=== PATIENT | male | born 1940 | race Caucasian/White ===

== ENCOUNTER → 2017-10-18 08:51 | Outpatient (CLI) | payer MEDICARE, SELFPAY ==
[2017-10-18 12:34] LABS: INR 2.4 (1.0-3.5); Prothrombin Time 22.6 sec (9.3-10.8)
== END ==
PROVIDERS: PCP Family Medicine; Visit Provider Family Medicine
DX: I48.92 Unspecified atrial flutter (principal); Z79.01 Long term (current) use of anticoagulants
CPT/HCPCS: 36415; 85610

== ENCOUNTER 2017-11-17 01:06 | Outpatient (CLI) | payer MEDICARE, SELFPAY ==
[2017-11-17 11:26] LABS: INR 2.5 (1.0-3.5); Prothrombin Time 23.7 sec (9.3-10.8)
== END 2017-11-17 01:26 ==
PROVIDERS: PCP Family Medicine; Visit Provider Family Medicine
DX: Z79.01 Long term (current) use of anticoagulants (principal); I48.91 Unspecified atrial fibrillation
CPT/HCPCS: 36415; 85610

== ENCOUNTER 2017-12-19 01:23 | Outpatient (CLI) | payer MEDICARE, SELFPAY ==
[2017-12-19 11:31] LABS: INR 2.4 (1.0-3.5); Prothrombin Time 22.5 sec (9.3-10.8)
== END 2017-12-19 01:43 ==
PROVIDERS: PCP Family Medicine; Visit Provider Family Medicine
DX: I48.91 Unspecified atrial fibrillation (principal); Z79.01 Long term (current) use of anticoagulants
CPT/HCPCS: 36415; 85610

== ENCOUNTER 2018-01-23 08:52 | Outpatient (CLI) | payer MEDICARE, SELFPAY ==
[2018-01-23 11:59] LABS: INR 2.9 (1.0-3.5); Prothrombin Time 27.2 sec (9.3-10.8)
== END 2018-01-23 09:12 ==
PROVIDERS: PCP Family Medicine; Visit Provider Family Medicine
DX: I48.91 Unspecified atrial fibrillation (principal); Z79.01 Long term (current) use of anticoagulants
CPT/HCPCS: 36415; 85610

== ENCOUNTER 2018-02-19 09:28 | Outpatient (CLI) | payer MEDICARE, SELFPAY ==
[2018-02-19 13:24] LABS: INR 2.9 (1.0-3.5); Prothrombin Time 29.1 sec (9.3-11.0)
== END 2018-02-19 09:48 ==
PROVIDERS: PCP Family Medicine; Visit Provider Family Medicine
DX: I48.91 Unspecified atrial fibrillation (principal); Z79.01 Long term (current) use of anticoagulants
CPT/HCPCS: 36415; 85610

== ENCOUNTER 2018-03-27 08:32 | Outpatient (CLI) | payer MEDICARE, SELFPAY ==
[2018-03-27 11:45] LABS: Prothrombin Time 20.3 sec (9.3-11.0)
== END 2018-03-27 08:52 ==
PROVIDERS: PCP Family Medicine; Visit Provider Family Medicine
DX: I48.91 Unspecified atrial fibrillation (principal); Z79.01 Long term (current) use of anticoagulants
CPT/HCPCS: 36415; 85610

== ENCOUNTER 2018-04-24 01:32 | Outpatient (CLI) | payer MEDICARE, SELFPAY ==
[2018-04-24 12:53] LABS: INR 3.5 (0.9-1.1); Prothrombin Time 35.1 sec (9.3-11.0)
== END 2018-04-24 01:52 ==
PROVIDERS: PCP Family Medicine; Visit Provider Family Medicine
DX: Z79.01 Long term (current) use of anticoagulants (principal); I48.91 Unspecified atrial fibrillation
CPT/HCPCS: 36415; 85610

== ENCOUNTER 2018-04-25 00:54 | Outpatient (CLI) | payer MEDICARE, SELFPAY ==
--- NOTE | 2018-04-25 13:48 | DI.RAD_ITS ---
SYMPTOMS/DIAGNOSIS: RIGHT SHOULDER PAIN, M25.511 RIGHT SHOULDER: Multiple views. There are moderate hypertrophic changes seen at the acromioclavicular joint. The glenohumeral joint appears well maintained. Soft tissue calcifications are seen adjacent to the humeral head, which may reflect calcific tendinitis. No acute fracture or dislocation is identified. IMPRESSION: Degenerative changes of the right shoulder.
== END 2018-04-25 01:14 ==
PROVIDERS: PCP Family Medicine
DX: M25.511 Pain in right shoulder (principal); M19.011 Primary osteoarthritis, right shoulder
CPT/HCPCS: 73030

== ENCOUNTER 2018-05-02 09:33 | Outpatient (CLI) | payer MEDICARE, SELFPAY ==
[2018-05-02 10:25] LABS: INR 3.8 (0.9-1.1); Prothrombin Time 38.2 sec (9.3-11.0)
== END 2018-05-02 09:53 ==
PROVIDERS: PCP Family Medicine; Visit Provider Family Medicine
DX: I48.92 Unspecified atrial flutter (principal); Z79.01 Long term (current) use of anticoagulants
CPT/HCPCS: 36415; 85610

== ENCOUNTER 2018-05-09 02:42 | Outpatient (CLI) | payer MEDICARE, SELFPAY ==
[2018-05-09 12:43] LABS: INR 1.8 (0.9-1.1)
== END 2018-05-09 03:02 ==
PROVIDERS: PCP Family Medicine; Visit Provider Family Medicine
DX: I48.92 Unspecified atrial flutter (principal); Z79.01 Long term (current) use of anticoagulants
CPT/HCPCS: 36415; 85610

== ENCOUNTER 2018-05-15 02:03 | Outpatient (CLI) | payer MEDICARE, SELFPAY ==
[2018-05-15 11:47] LABS: Prothrombin Time 25.7 sec (9.3-11.0)
[2018-05-15 11:50] LABS: INR 2.5 (0.9-1.1)
== END 2018-05-15 02:23 ==
PROVIDERS: PCP Family Medicine; Visit Provider Family Medicine
DX: I48.92 Unspecified atrial flutter (principal); Z79.01 Long term (current) use of anticoagulants
CPT/HCPCS: 36415; 85610

== ENCOUNTER → 2018-05-17 11:13 | Outpatient (BNVA) | payer MEDICARE, SELFPAY | PROVIDERS: PCP Family Medicine; Referring Provider Family Medicine; Visit Provider Orthopaedic Surgery | DX: M25.511 Pain in right shoulder (principal) | CPT/HCPCS: 20610; 99202; 99213; J1040 ==

== ENCOUNTER 2018-05-22 08:06 | Outpatient (CLI) | payer MEDICARE, SELFPAY ==
[2018-05-22 13:27] LABS: INR 2.7 (0.9-1.1); Prothrombin Time 27.7 sec (9.3-11.0)
== END 2018-05-22 08:26 ==
PROVIDERS: PCP Family Medicine; Visit Provider Family Medicine
DX: I48.92 Unspecified atrial flutter (principal); Z79.01 Long term (current) use of anticoagulants
CPT/HCPCS: 36415; 85610

== ENCOUNTER 2018-06-19 01:43 | Outpatient (CLI) | payer MEDICARE, SELFPAY ==
[2018-06-19 11:21] LABS: INR 2.6 (0.9-1.1); Prothrombin Time 26.3 sec (9.3-11.0)
== END 2018-06-19 02:03 ==
PROVIDERS: PCP Family Medicine; Visit Provider Family Medicine
DX: I48.92 Unspecified atrial flutter (principal); Z79.01 Long term (current) use of anticoagulants
CPT/HCPCS: 36415; 85610

== ENCOUNTER 2018-07-24 02:03 | Outpatient (CLI) | payer MEDICARE, SELFPAY ==
[2018-07-24 11:16] LABS: INR 2.3 (0.9-1.1); Prothrombin Time 22.8 sec (9.3-11.0)
== END 2018-07-24 02:23 ==
PROVIDERS: PCP Family Medicine; Visit Provider Family Medicine
DX: I48.92 Unspecified atrial flutter (principal); Z79.01 Long term (current) use of anticoagulants
CPT/HCPCS: 36415; 85610

== ENCOUNTER → 2018-07-27 11:19 | Outpatient (BNVA) | payer MEDICARE, SELFPAY | PROVIDERS: PCP Family Medicine; Visit Provider Urology | DX: N40.1 Benign prostatic hyperplasia with lower urinary tract symptoms (principal); N39.41 Urge incontinence | CPT/HCPCS: 99213 ==

== ENCOUNTER 2018-08-21 02:08 | Outpatient (CLI) | payer MEDICARE, SELFPAY ==
[2018-08-21 12:39] LABS: Prothrombin Time 20.6 sec (9.3-11.0)
== END 2018-08-21 02:28 ==
PROVIDERS: PCP Family Medicine; Visit Provider Family Medicine
DX: I48.91 Unspecified atrial fibrillation (principal); Z79.01 Long term (current) use of anticoagulants
CPT/HCPCS: 36415; 85610

== ENCOUNTER 2018-09-18 01:38 | Outpatient (CLI) | payer MEDICARE, SELFPAY ==
[2018-09-18 12:33] LABS: INR 2.1 (0.9-1.1); Prothrombin Time 20.9 sec (9.3-11.0)
== END 2018-09-18 01:58 ==
PROVIDERS: PCP Family Medicine; Visit Provider Family Medicine
DX: I48.91 Unspecified atrial fibrillation (principal); Z79.01 Long term (current) use of anticoagulants
CPT/HCPCS: 36415; 85610

== ENCOUNTER 2018-10-23 10:04 | Outpatient (CLI) | payer MEDICARE, SELFPAY ==
[2018-10-23 11:14] LABS: Prothrombin Time 20.1 sec (9.3-11.0)
== END 2018-10-23 10:24 ==
PROVIDERS: PCP Family Medicine; Visit Provider Family Medicine
DX: Z79.01 Long term (current) use of anticoagulants (principal)
CPT/HCPCS: 36415; 85610

== ENCOUNTER 2018-11-20 09:51 | Outpatient (CLI) | payer MEDICARE, SELFPAY ==
[2018-11-20 14:12] LABS: INR 2.7 (0.9-1.1); Prothrombin Time 26.4 sec (9.3-11.0)
== END 2018-11-20 10:11 ==
PROVIDERS: PCP Family Medicine; Visit Provider Family Medicine
DX: I48.91 Unspecified atrial fibrillation (principal); Z79.01 Long term (current) use of anticoagulants
CPT/HCPCS: 36415; 85610

== ENCOUNTER 2018-12-25 01:54 | Outpatient (CLI) | payer MEDICARE, SELFPAY ==
[2018-12-25 11:07] LABS: INR 1.7 (0.9-1.1); Prothrombin Time 16.5 sec (9.3-11.0)
== END 2018-12-25 02:14 ==
PROVIDERS: PCP Family Medicine; Visit Provider Family Medicine
DX: I48.91 Unspecified atrial fibrillation (principal); Z79.01 Long term (current) use of anticoagulants
CPT/HCPCS: 36415; 85610

== ENCOUNTER 2019-01-02 01:09 | Outpatient (CLI) | payer MEDICARE, SELFPAY ==
[2019-01-02 13:05] LABS: INR 1.8 (0.9-1.1); Prothrombin Time 17.8 sec (9.3-11.0)
== END 2019-01-02 01:29 ==
PROVIDERS: PCP Family Medicine; Visit Provider Family Medicine
DX: Z79.01 Long term (current) use of anticoagulants (principal)
CPT/HCPCS: 36415; 85610

== ENCOUNTER 2019-01-09 01:32 | Outpatient (CLI) | payer MEDICARE, SELFPAY ==
[2019-01-09 11:59] LABS: INR 2.1 (0.9-1.1); Prothrombin Time 20.7 sec (9.3-11.0)
== END 2019-01-09 01:52 ==
PROVIDERS: PCP Family Medicine; Visit Provider Family Medicine
DX: I48.91 Unspecified atrial fibrillation (principal); Z79.01 Long term (current) use of anticoagulants
CPT/HCPCS: 36415; 85610

== ENCOUNTER 2019-02-12 04:23 | Outpatient (CLI) | payer MEDICARE, SELFPAY ==
[2019-02-12 13:53] LABS: INR 1.9 (0.9-1.1); Prothrombin Time 19.1 sec (9.3-11.0)
== END 2019-02-12 04:43 ==
PROVIDERS: PCP Family Medicine; Visit Provider Family Medicine
DX: R79.1 Abnormal coagulation profile (principal); Z79.01 Long term (current) use of anticoagulants
CPT/HCPCS: 36415; 85610

== ENCOUNTER 2019-02-21 08:58 | Outpatient (CLI) | payer MEDICARE, SELFPAY ==
[2019-02-21 13:33] LABS: INR 2.3 (0.9-1.1); Prothrombin Time 22.2 sec (9.3-11.0)
== END 2019-02-21 09:18 ==
LOC: LBO 09:08 → LOS 10:32
PROVIDERS: PCP Family Medicine; Visit Provider Family Medicine
DX: I48.91 Unspecified atrial fibrillation (principal); Z79.01 Long term (current) use of anticoagulants
CPT/HCPCS: 36415; 85610

== ENCOUNTER 2019-02-27 09:24 | Outpatient (CLI) | payer MEDICARE, SELFPAY ==
[2019-02-27 10:44] LABS: INR 2.2 (0.9-1.1); Prothrombin Time 21.3 sec (9.3-11.0)
== END 2019-02-27 09:44 ==
PROVIDERS: PCP Family Medicine; Visit Provider Family Medicine
DX: I48.91 Unspecified atrial fibrillation (principal); Z79.01 Long term (current) use of anticoagulants
CPT/HCPCS: 36415; 85610

== ENCOUNTER 2019-03-13 02:13 | Outpatient (CLI) | payer MEDICARE, SELFPAY ==
[2019-03-13 11:53] LABS: INR 2.1 (0.9-1.1); Prothrombin Time 20.6 sec (9.3-11.0)
== END 2019-03-13 02:33 ==
PROVIDERS: PCP Family Medicine
DX: I48.91 Unspecified atrial fibrillation (principal); Z79.01 Long term (current) use of anticoagulants
CPT/HCPCS: 36415; 85610

== ENCOUNTER 2019-04-23 03:55 | Outpatient (CLI) | payer MEDICARE, SELFPAY ==
[2019-04-23 12:26] LABS: Prothrombin Time 20.1 sec (9.3-11.0)
== END 2019-04-23 04:15 ==
PROVIDERS: PCP Family Medicine; Visit Provider Family Medicine
DX: I48.91 Unspecified atrial fibrillation (principal); Z79.01 Long term (current) use of anticoagulants
CPT/HCPCS: 36415; 85610

== ENCOUNTER → 2019-07-26 16:10 | Outpatient (BNVA) | payer MEDICARE, SELFPAY | PROVIDERS: PCP Family Medicine; Referring Provider Family Medicine; Visit Provider Urology | DX: N40.1 Benign prostatic hyperplasia with lower urinary tract symptoms (principal); N39.41 Urge incontinence | CPT/HCPCS: 99213; 99442 ==

== ENCOUNTER 2019-07-30 04:13 | Outpatient (CLI) | payer MEDICARE, SELFPAY ==
[2019-07-30 12:02] LABS: INR 2.2 (0.9-1.1)
== END 2019-07-30 04:33 ==
PROVIDERS: PCP Family Medicine
DX: I48.91 Unspecified atrial fibrillation (principal); Z79.01 Long term (current) use of anticoagulants
CPT/HCPCS: 36415; 85610

== ENCOUNTER 2019-08-14 16:25 | Emergency (ER) | payer MEDICARE, SELFPAY ==
[2019-08-14 16:35] VITALS: BP 129/97; PULSE 76; RESP 18; TEMP 37; O2SAT 96
[2019-08-14 17:23] LABS: Bilirubin Large (Negative); Blood Large (Negative); Clarity Cloudy (Clear); Glucose 100 mg/dL (Negative); Ketones 15 mg/dL (Negative); Leukocyte Esterase Large (Negative); Nitrite Negative (Negative); Specific Gravity 1.015 (1.005-1.025)
[2019-08-14 17:34] LABS: C & S Indicated? Yes; RBC >50 HPF (0-2)
[2019-08-14 17:45] LABS: Prothrombin Time 19.7 sec (9.3-11.0)
[2019-08-14 17:47] LABS: Abs Immature Grans 0.03 k/cumm (0.0-0.09); Absolute Basophil Count 0.02 k/cumm (0.0-0.2); Absolute Eosinophil Count 0.06 k/cumm (0.0-0.7); Absolute Lymphocyte Count 1.48 k/cumm (1.2-3.4); Absolute Monocyte Count 0.91 k/cumm (0.11-0.7); Absolute Neutrophil Count 5.26 k/cumm (1.2-6.7); Basophils % 0.3; Eosinophils % 0.8; HCT 38.1 % (40.0-50.0); HGB 12.7 g/dL (13.5-17.5); Immature Grans % 0.4 %; Lymphocytes % 19.1; Mean Corp. HGB Concentration 33.3 g/dL (32.0-36.0); Mean Corpuscular Hemoglobin 29.7 pg (27.0-33.0); Mean Corpuscular Volume 89.2 fL (80-95); Mean Platelet Volume 8.9 fL (8.0-11.0); Monocytes % 11.7; Neutrophils % 67.7; Platelet Count 275 x1000/uL (130-400); RBC 4.27 m/cumm (4.50-6.00); RBC Distribution Width 12.7 % (11.8-14.1); White Blood Cell Count 7.76 k/cumm (4.4-10.8)
[2019-08-14 18:08] LABS: ALT 19 U/L (16-63); AST 17 U/L (15-37); Albumin 3.3 g/dL (3.4-5.0); Alkaline Phosphatase 108 U/L (46-116); Anion Gap 7.9 mmol/L (3-11); BUN 17 mg/dL (7-18); Bilirubin, Total 0.2 mg/dL (0.2-1.0); CO2 27.1 mmol/L (21.0-32.0); Calcium 9.1 mg/dL (8.5-10.1); Chloride 104 mmol/L (98-107); Estimated GFR 53.67 (mL/min/1.73m2); Glucose 93 mg/dL (74-106); Potassium 3.9 mmol/L (3.5-5.1); Sodium 139 mmol/L (136-145); Total Protein 7.4 g/dL (6.4-8.2)
--- NOTE | 2019-08-14 18:47 | W.ED.GENAD ---
Discharge Plan Disposition Patient Disposition: HOME Condition: Stable Discharge Details Chief Complaint: Urinary Clinical Impression: Hematuria Primary Care Provider: Sole Carter ED Provider: Otoniel Villgeas Home Meds and New Rx's Prescriptions: Continued Myrbetriq 50 mg tablet extended release 24 hr 50 mg PO DAILY Qty: 90 RF: 4 tamsulosin 0.4 mg capsule 0.4 mg PO HS Qty: 90 RF: 4 warfarin [Coumadin] 5 mg tablet 5 mg PO DAILY Qty: 90 RF: 2 diltiazem HCl 360 mg capsule,extended release 24hr 360 mg PO DAILY Qty: 90 RF: 4 lisinopril 2.5 mg tablet 5 mg PO DAILY Qty: 90 RF: 3 bisoprolol fumarate 5 mg tablet 5 mg PO DAILY Qty: 90 RF: 4 Discharge Instructions Instructions: Hematuria (ED) Additional Instructions: At this time your INR is 2.0. You have no fever, no elevated white count, no obvious signs of infection in your urine. Culture is pending. I will send this note to Dr. Carbone and I have placed you on his call list to help expedite outpatient care. I would like you to contact his office tomorrow for prompt outpatient reevaluation. Please watch for new or worsening symptoms and return to the ER for any concerns Referrals: Fei Carbone MD [ [facility] STAFF PHYSICIAN] - Medical Decision Making 78-year-old gentleman who is anticoagulated presents with asymptomatic hematuria. He appears well, nontoxic. Blood pressure is 129/97, pulse 76. Differential includes but not excluded to hemorrhagic cystitis, elevated INR, bladder mass, etc. Given his presentation, lack of discomfort, flank pain, reproducible pain, pulsatile mass, I do believe that both AAA dissection, renal stone, far less likely on the differential. Will obtain CBC, CMP, urinalysis, INR. Patient would like to know how long this is going to take, does not want to be here very long. I explained to him that this is a fairly busy day in the emergency department and we will go as quickly as we can do safely as we can Work-up reveals a white blood cell count of 7.76 hemoglobin 12.7 hematocrit 38.1 platelet count 275. INR 2.0. Electrolytes unremarkable. Urinalysis reveals large blood, negative nitrate. Large leuk esterase, greater than 50 red cells. The red cells obscured the field, white blood cells not applicable. Because of this culture is indicated. Discussed the case with Dr. Kumari. Given the patient has no dysuria, frequency, elevated white count, fever, etc., see no acute reason to initiate antibiotic therapy. His INR is appropriate so he will continue taking his anticoagulation as directed. I have placed him on the list for expedited outpatient care with Dr. Carbone, he will contact their office tomorrow. Discussed with the patient that culture is pending and if he does grow bacteria he will need to be placed on antibiotics for a hemorrhagic cystitis. He was encouraged to return to the ER for new or worsening symptoms, otherwise contact the office of Dr. Carbone tomorrow for prompt outpatient reevaluation. He was quite comfortable with this plan and had no additional questions or concerns. Medical Records Medical records reviewed: Yes I reviewed the patient's medical records. Lab Data Lab results reviewed: Yes I reviewed the patient's lab results. Labs: 08/14/19 17:00 Urine - Reflex from Ua Urine Culture - Pending Laboratory Tests Range/Units 08/14/19 08/14/19 08/14/19 16:46 17:00 17:30 WBC (4.4-10.8) k/cumm RBC (4.50-6.00) m/cumm Hgb (13.5-17.5) g/dL Hct (40.0-50.0) % MCV (80-95) fL MCH (27.0-33.0) pg MCHC (32.0-36.0) g/dL RDW (11.8-14.1) % Plt Count (130-400) x1000/uL MPV (8.0-11.0) fL Immature Gran % % Neutrophils % Lymphocytes % Monocytes % Eosinophils % Basophils % Absolute Neutrophils (1.2-6.7) k/cumm Absolute Lymphocytes (1.2-3.4) k/cumm Absolute Monocytes (0.11-0.7) k/cumm Absolute Eosinophils (0.0-0.7) k/cumm Absolute Basophils (0.0-0.2) k/cumm PT (9.3-11.0) sec INR (0.9-1.1) Sodium (136-145) mmol/L 139 Potassium (3.5-5.1) mmol/L 3.9 Chloride (98-107) mmol/L 104 Carbon Dioxide (21.0-32.0) mmol/L 27.1 Anion Gap (3-11) mmol/L 7.9 BUN (7-18) mg/dL 17 Creatinine (0.70-1.30) mg/dL 1.30 Estimated GFR/1.73 m2 (mL/min/1.73m2) 53.67 Glucose (74-106) mg/dL 93 Calcium (8.5-10.1) mg/dL 9.1 Total Bilirubin (0.2-1.0) mg/dL 0.2 AST (15-37) U/L 17 ALT (16-63) U/L 19 Alkaline Phosphatase (46-116) U/L 108 Total Protein (6.4-8.2) g/dL 7.4 Albumin (3.4-5.0) g/dL 3.3 L Urine Color Cancelled Red Urine Clarity Cancelled Cloudy Urine pH Cancelled 5.0 Ur Specific [place] Cancelled 1.015 Urine Protein Cancelled >=300 H Urine Ketones Cancelled 15 H Urine Blood Cancelled Large H Urine Nitrite Cancelled Negative Urine Bilirubin Cancelled Large H Urine Urobilinogen Cancelled 4.0 H Ur Leukocyte Esterase Cancelled Large H Urine RBC (0-2) HPF >50 H Urine WBC Not Applicable Ur Epithelial Cells Not Applicable Urine Crystals Not Applicable Urine Bacteria Not Applicable Urine Mucus Not Applicable Ur Culture Indicated? Yes Urine Glucose Cancelled 100 Range/Units 08/14/19 08/14/19 17:30 17:30 WBC (4.4-10.8) k/cumm 7.76 RBC (4.50-6.00) m/cumm 4.27 L Hgb (13.5-17.5) g/dL 12.7 L Hct (40.0-50.0) % 38.1 L MCV (80-95) fL 89.2 MCH (27.0-33.0) pg 29.7 MCHC (32.0-36.0) g/dL 33.3 RDW (11.8-14.1) % 12.7 Plt Count (130-400) x1000/uL 275 MPV (8.0-11.0) fL 8.9 Immature Gran % % 0.4 Neutrophils % 67.7 Lymphocytes % 19.1 Monocytes % 11.7 Eosinophils % 0.8 Basophils % 0.3 Absolute Neutrophils (1.2-6.7) k/cumm 5.26 Absolute Lymphocytes (1.2-3.4) k/cumm 1.48 Absolute Monocytes (0.11-0.7) k/cumm 0.91 H Absolute Eosinophils (0.0-0.7) k/cumm 0.06 Absolute Basophils (0.0-0.2) k/cumm 0.02 PT (9.3-11.0) sec 19.7 H INR (0.9-1.1) 2.0 H Sodium (136-145) mmol/L Potassium (3.5-5.1) mmol/L Chloride (98-107) mmol/L Carbon Dioxide (21.0-32.0) mmol/L Anion Gap (3-11) mmol/L BUN (7-18) mg/dL Creatinine (0.70-1.30) mg/dL Estimated GFR/1.73 m2 (mL/min/1.73m2) Glucose (74-106) mg/dL Calcium (8.5-10.1) mg/dL Total Bilirubin (0.2-1.0) mg/dL AST (15-37) U/L ALT (16-63) U/L Alkaline Phosphatase (46-116) U/L Total Protein (6.4-8.2) g/dL Albumin (3.4-5.0) g/dL Urine Color Urine Clarity Urine pH Ur Specific [place] Urine Protein Urine Ketones Urine Blood Urine Nitrite Urine Bilirubin Urine Urobilinogen Ur Leukocyte Esterase Urine RBC (0-2) HPF Urine WBC Ur Epithelial Cells Urine Crystals Urine Bacteria Urine Mucus Ur Culture Indicated? Urine Glucose HPI General Mode of arrival: ambulatory. Date/Time Provider Initiated Documentation: 08/14/19 16:59. Limitations to Documentation: no limitations. Information obtained by: patient. HPI Narrative: This is a 78-year-old gentleman with history of atrial flutter, BPH, chronic anticoagulation, emphysema, aortic aneurysm presenting to the ER today for hematuria that he noticed twice today. He denies recent illness or trauma. He denies change of his medications. He denies any fever, chest pain, abdominal pain, back pain with pain in his penis or testicles, nausea or vomiting. Denies bright red blood in his stools or black tarry stools. He denies any urinary frequency or hesitancy. Patient does see Dr. Carbone, urology, for ongoing BPH and lower urinary tract symptoms. Patient reports that this is never happened before. At this time he has no additional questions or concerns. Related Data Home Medications Medication Instructions Recorded Confirmed warfarin 5 mg tablet 5 mg PO DAILY #90 tab-cap 12/17/18 08/14/19 diltiazem HCl 360 mg 360 mg PO DAILY #90 tab-cap 02/27/19 08/14/19 capsule,extended release 24 hr lisinopril 2.5 mg tablet 5 mg PO DAILY #90 tab-cap 05/06/19 08/14/19 bisoprolol fumarate 5 mg tablet 5 mg PO DAILY #90 tab 07/02/19 08/14/19 mirabegron 50 mg tablet,extended 50 mg PO DAILY #90 tab-cap 07/26/19 08/14/19 release 24 hr tamsulosin 0.4 mg capsule 0.4 mg PO HS #90 cap 07/26/19 08/14/19 Previous Rx's Medication Instructions Recorded warfarin 5 mg tablet 5 mg PO DAILY #90 tab-cap 12/17/18 diltiazem HCl 360 mg 360 mg PO DAILY #90 tab-cap 02/27/19 capsule,extended release 24 hr lisinopril 2.5 mg tablet 5 mg PO DAILY #90 tab-cap 05/06/19 bisoprolol fumarate 5 mg tablet 5 mg PO DAILY #90 tab 07/02/19 mirabegron 50 mg tablet,extended 50 mg PO DAILY #90 tab-cap 07/26/19 release 24 hr tamsulosin 0.4 mg capsule 0.4 mg PO HS #90 cap 07/26/19 Allergies Allergy/AdvReac Type Severity Reaction Status Date / Time metoprolol AdvReac Mild DIARRHEA Verified 08/14/19 16:41 General Stated Complaint: Urinary KELLI: 3 Review of Systems Constitutional Constitutional: Denies fever(s) and Denies weakness Cardiovascular Cardiovascular: Denies chest pain and Denies dyspnea Respiratory Respiratory: Denies cough and Denies dyspnea Gastrointestinal Gastrointestinal: Denies abdominal pain, Denies melena, Denies hematochezia, Denies nausea and Denies vomiting Genitourinary Genitourinary: Denies genital pain, Denies penile discharge and Denies testicular pain Musculoskeletal Musculoskeletal: Denies back pain and Denies tingling Integumentary/Breasts Skin/Breast: Denies rash Neurologic Neurologic: Denies tingling and Denies weakness Hematologic/Lymphatic Hematologic/Lymphatic: Reports easy bleeding and Reports easy bruising [facility] Medical History Aortic aneurysm, abdominal (Chronic) Atrial flutter with rapid ventricular response (Chronic) Benign non-nodular prostatic hyperplasia with lower urinary tract symptoms (Acute 12/10/14) Elevated PSA (Acute 07/19/16) Emphysema of lung (Chronic) POLST (Physician Orders for Life-Sustaining Treatment) (Acute) SVT (supraventricular tachycardia) (Acute 02/27/15) Holter -2014: multiple SVT/long duration/intol. 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 Sister No problems noted. Brother Accidental poisoning by carbon monoxide Social History Smoking/Tobacco Use Status: Current-Occasional Tobacco Type: cigarettes Alcohol Intake: never Drug use: Never Substance use type: does not use Current gender identity: male Do you feel safe at home: Yes Do you feel safe in your relationship?: Yes Exam Const General: cooperative, healthy appearing, comfortable and no acute distress Orientation: alert, awake and oriented x3 HENMT Head: normal to inspection, normocephalic and atraumatic Mouth: moist mucous membranes Eyes Conjunctivae: conjunctivae normal Sclera: sclerae normal Neck Neck: normal visual inspection, trachea midline and supple Resp Effort & Inspection: normal respiratory effort and able to speak in complete sentences Auscultation: clear to auscultation bilaterally Cardio Rate: regular rate Rhythm: regular rhythm GI Inspection: normal to inspection Palpation: soft, not firm, no masses, no pulsatile masses, not rigid and nontender Auscultation: normal bowel sounds Male General Exam: Yes normal external exam Penis: normal penis Meatus: meatus normal Scrotum: scrotum normal Testes: normal Back/Spine/Pelvis Back: No back tenderness Skin General skin exam: no rashes or lesions noted Neuro General: patient alert, patient awake, moves all extremities and no focal motor deficits Motor: muscle tone normal throughout Sensory Exam: no sensory deficits noted Psych Appearance: grossly normal Mental Status: mental status grossly normal Course Vital Signs Vital signs: Vital Signs Temperature 37 C 08/14/19 16:35 Pulse 76 08/14/19 16:35 Respiratory Rate 18 08/14/19 16:35 Blood Pressure 129/97 H 08/14/19 16:35 Pulse Oximetry 96 08/14/19 16:35 Temperature 37 C 08/14/19 16:35 Temperature Source Temporal Artery Scan 08/14/19 16:35 Pulse 76 08/14/19 16:35 Respiratory Rate 18 08/14/19 16:35 Respiratory Effort 08/14/19 16:40 Blood Pressure 129/97 H 08/14/19 16:35 Blood Pressure Position Sitting 08/14/19 16:35 Pulse Oximetry 96 08/14/19 16:35 Oxygen Delivery Method Room Air 08/14/19 16:35 Oxygen Flow Rate 0 08/14/19 16:35 Pain Level 0 08/14/19 16:35 Lab/Test Results Lab/Test Results: 08/14/19 17:00 Urine - Reflex from Ua Urine Culture - Pending Laboratory Tests Range/Units 08/14/19 08/14/19 08/14/19 16:46 17:00 17:30 WBC (4.4-10.8) k/cumm RBC (4.50-6.00) m/cumm Hgb (13.5-17.5) g/dL Hct (40.0-50.0) % MCV (80-95) fL MCH (27.0-33.0) pg MCHC (32.0-36.0) g/dL RDW (11.8-14.1) % Plt Count (130-400) x1000/uL MPV (8.0-11.0) fL Immature Gran % % Neutrophils % Lymphocytes % Monocytes % Eosinophils % Basophils % Absolute Neutrophils (1.2-6.7) k/cumm Absolute Lymphocytes (1.2-3.4) k/cumm Absolute Monocytes (0.11-0.7) k/cumm Absolute Eosinophils (0.0-0.7) k/cumm Absolute Basophils (0.0-0.2) k/cumm PT (9.3-11.0) sec INR (0.9-1.1) Sodium (136-145) mmol/L 139 Potassium (3.5-5.1) mmol/L 3.9 Chloride (98-107) mmol/L 104 Carbon Dioxide (21.0-32.0) mmol/L 27.1 Anion Gap (3-11) mmol/L 7.9 BUN (7-18) mg/dL 17 Creatinine (0.70-1.30) mg/dL 1.30 Estimated GFR/1.73 m2 (mL/min/1.73m2) 53.67 Glucose (74-106) mg/dL 93 Calcium (8.5-10.1) mg/dL 9.1 Total Bilirubin (0.2-1.0) mg/dL 0.2 AST (15-37) U/L 17 ALT (16-63) U/L 19 Alkaline Phosphatase (46-116) U/L 108 Total Protein (6.4-8.2) g/dL 7.4 Albumin (3.4-5.0) g/dL 3.3 L Urine Color Cancelled Red Urine Clarity Cancelled Cloudy Urine pH Cancelled 5.0 Ur Specific [place] Cancelled 1.015 Urine Protein Cancelled >=300 H Urine Ketones Cancelled 15 H Urine Blood Cancelled Large H Urine Nitrite Cancelled Negative Urine Bilirubin Cancelled Large H Urine Urobilinogen Cancelled 4.0 H Ur Leukocyte Esterase Cancelled Large H Urine RBC (0-2) HPF >50 H Urine WBC Not Applicable Ur Epithelial Cells Not Applicable Urine Crystals Not Applicable Urine Bacteria Not Applicable Urine Mucus Not Applicable Ur Culture Indicated? Yes Urine Glucose Cancelled 100 Range/Units 08/14/19 08/14/19 17:30 17:30 WBC (4.4-10.8) k/cumm 7.76 RBC (4.50-6.00) m/cumm 4.27 L Hgb (13.5-17.5) g/dL 12.7 L Hct (40.0-50.0) % 38.1 L MCV (80-95) fL 89.2 MCH (27.0-33.0) pg 29.7 MCHC (32.0-36.0) g/dL 33.3 RDW (11.8-14.1) % 12.7 Plt Count (130-400) x1000/uL 275 MPV (8.0-11.0) fL 8.9 Immature Gran % % 0.4 Neutrophils % 67.7 Lymphocytes % 19.1 Monocytes % 11.7 Eosinophils % 0.8 Basophils % 0.3 Absolute Neutrophils (1.2-6.7) k/cumm 5.26 Absolute Lymphocytes (1.2-3.4) k/cumm 1.48 Absolute Monocytes (0.11-0.7) k/cumm 0.91 H Absolute Eosinophils (0.0-0.7) k/cumm 0.06 Absolute Basophils (0.0-0.2) k/cumm 0.02 PT (9.3-11.0) sec 19.7 H INR (0.9-1.1) 2.0 H Sodium (136-145) mmol/L Potassium (3.5-5.1) mmol/L Chloride (98-107) mmol/L Carbon Dioxide (21.0-32.0) mmol/L Anion Gap (3-11) mmol/L BUN (7-18) mg/dL Creatinine (0.70-1.30) mg/dL Estimated GFR/1.73 m2 (mL/min/1.73m2) Glucose (74-106) mg/dL Calcium (8.5-10.1) mg/dL Total Bilirubin (0.2-1.0) mg/dL AST (15-37) U/L ALT (16-63) U/L Alkaline Phosphatase (46-116) U/L Total Protein (6.4-8.2) g/dL Albumin (3.4-5.0) g/dL Urine Color Urine Clarity Urine pH Ur Specific [place] Urine Protein Urine Ketones Urine Blood Urine Nitrite Urine Bilirubin Urine Urobilinogen Ur Leukocyte Esterase Urine RBC (0-2) HPF Urine WBC Ur Epithelial Cells Urine Crystals Urine Bacteria Urine Mucus Ur Culture Indicated? Urine Glucose
[2019-08-14 22:27] VITALS: TEMP 36.4
--- NOTE | 2019-08-15 07:11 | NUR.NOTE ---
[facility]erral [facility], Dr. Carbone.Nursing Note:
== END 2019-08-14 19:20 | disposition home or self-care (01) ==
PROVIDERS: Emergency Provider Physician Assistant; PCP Family Medicine
DX: R31.9 Hematuria, unspecified (principal); N40.1 Benign prostatic hyperplasia with lower urinary tract symptoms; R39.15 Urgency of urination; Z79.01 Long term (current) use of anticoagulants; I48.92 Unspecified atrial flutter
CPT/HCPCS: 36415; 80053; 99283; 81003; 81015; 85025; 85610; 87086

== ENCOUNTER 2019-08-15 09:17 | Outpatient (CLI) | payer MEDICARE, SELFPAY ==
--- NOTE | 2019-08-15 15:45 | DI.CT_ITS ---
EXAM: CT ABDOMEN PELVIS WO/W CLINICAL HISTORY: gross hematuria, R31.9 TECHNIQUE: COMPARISON: No exams were available for comparison FINDINGS: CT examination of the abdomen and pelvis was performed utilizing CT urogram protocol with intravenous infusion 100 cc of Omnipaque 350. Images obtained through the lung bases show an irregular somewhat spiculated appearing region of scar ring or nodularity of the right lung base, this was not present on prior CT angiogram of the chest of September 2016. This measures about 15-20 millimeters in diameter. Although the findings may represen t scarring, the possibility of malignancy would have to be raised. Correlation with chest CT request ed as this is an incompletely visualized finding. There are numerous low-attenuation hepatic lesions consistent with cysts. These appear to have been present on prior study. There is also a peripheral nodular enhancing lesion of the left hepatic lobe with appearance consistent with hepatic hemangioma. This measures about 2.5 cm in diameter. The spleen is unremarkable in appearance. Pancreas appears normal. Gallbladder is contracted, gallb ladder and bile ducts unremarkable by CT criteria. There is marked wall calcification of all the abdominal arterial circulation. No aortic aneurysm. N o obstruction of major visceral vessels although there could be mild stenosis of origins of celiac tr unk and left renal artery. The adrenals are unremarkable in appearance. Appendix is normal. No evidence of diverticulitis or bowel obstruction. No abdominal or pelvic adenopathy. No significant abdominal wall hernia. There is left lower pole renal cyst measuring about 15 millimeters in diameter. There is a [address] nonobstructing left renal calculus. Vascular calcification is seen involving the right kidney. There is no evidence of hydronephrosis. No evidence of ureterolithiasis. Visualized opacified colle cting systems appear normal. There is a bladder mass measuring up to about 6 cm in diameter, highly suggestive bladder neoplasm. Prostate is enlarged and partially calcified. No pelvic adenopathy. IMPRESSION: Large urinary bladder mass, highly suggestive of transitional cell carcinoma. Nonobstructing left re nal calculus. New spiculated right basilar lung lesion, scarring versus neoplasm, chest CT recommended for further evaluation.
[2019-08-15] MEDS: Omnipaque 350 MG/ML 100 ML BTL IJ (16:30)
[2019-08-16 11:32] LABS: PSA, Screening 7.7 ng/mL (0.0-6.5)
== END 2019-08-15 09:37 ==
PROVIDERS: PCP Family Medicine; Visit Provider Nurse Practitioner Gerontology
DX: R31.9 Hematuria, unspecified (principal); N40.1 Benign prostatic hyperplasia with lower urinary tract symptoms; J98.4 Other disorders of lung; K76.89 Other specified diseases of liver; N20.0 Calculus of kidney; N32.89 Other specified disorders of bladder
CPT/HCPCS: 84153; 99213; 74178; J3490

== ENCOUNTER → 2019-08-15 14:55 | Outpatient (BNVA) | payer MEDICARE, SELFPAY | PROVIDERS: PCP Family Medicine; Referring Provider Family Medicine; Visit Provider Nurse Practitioner Gerontology | DX: N40.1 Benign prostatic hyperplasia with lower urinary tract symptoms (principal); R31.9 Hematuria, unspecified | CPT/HCPCS: 99213 ==

== ENCOUNTER → 2019-08-16 14:34 | Outpatient (BNVA) | payer MEDICARE, SELFPAY | PROVIDERS: PCP Family Medicine; Referring Provider Family Medicine; Visit Provider Urology | DX: R91.8 Other nonspecific abnormal finding of lung field (principal); R31.9 Hematuria, unspecified | CPT/HCPCS: 99213 ==

== ENCOUNTER 2019-08-19 09:28 | Outpatient (CLI) | payer MEDICARE, SELFPAY ==
--- NOTE | 2019-08-19 13:00 | DI.CT_ITS ---
EXAM: CT CHEST W CLINICAL HISTORY: abormal ct abd/pelvis R93.5 TECHNIQUE: Imaging Protocol: Axial computed tomography images with coronal and sagittal reformatted images were created and reviewed CONTRAST MATERIAL: Intravenous: Omnipaque 350 Contrast volume:70 mL. COMPARISON: CT CHEST FOR PULMONARY EMBOLUS from 10/12/[address] ABDOMEN PELVIS WO/W from 08/15/2019 FINDINGS: Tracheobronchial tree: There is a small amount of fluid seen in the dependent portion of the trachea and right mainstem bronchus. No endobronchial mass is seen. Mediastinum and [place]: No dominant adenopathy or fluid collection. Pulmonary parenchyma: Emphysematous changes are seen in the lungs. There is a 0.3 cm noncalcified pu lmonary nodule in the posterior aspect of the right upper lobe. (Series 3, image 214). This was pre sent on the prior examination dated 10/12/2016. There is scarring in the apices bilaterally. There is an irregular density in the posterior aspect of the right lower lobe. This may represent an area of infiltration, scarring or mass. Pleura: No effusion or pneumothorax. Heart: The heart is not dilated. Marked coronary artery calcification is present. There is a small p ericardial effusion. Aorta: Thoracic aorta non-dilated. Atherosclerosis. Lymph nodes: Within normal limits. Bones: Mild degenerative changes are seen in the spine. No aggressive osseous lesions are present. IMPRESSION: 1. Irregular density/spiculated area in the right lower lobe. This may represent an area of infiltra tion, scarring or mass. PET CT scan may be considered for further evaluation. 2. Stable 0.3 cm noncalcified pulmonary nodule in the right upper lobe. 3. Pulmonary emphysema. 4. Coronary artery calcification and atherosclerosis. 5. Small amount of fluid seen in the dependent portion of the trachea and right mainstem bronchus. T his may represent mild aspiration. RADIATION DOSE DELIVERED: Total DLP DATA REPOSITORY: All CT scans at this facility are submitted to the National Radiology Data Registry (NRDR) Dose Index Registry (DIR) with the [employer] (ACR). RADIATION OPTIMIZATION: All CT scans at this facility use at least one of these dose optimization te chniques: automated exposure control; mA and/or kV adjustment per patient size (includes targeted exa ms where dose is matched to clinical indication); or iterative reconstruction.
[2019-08-19] MEDS: Omnipaque 350 MG/ML 100 ML BTL IV (13:23)
== END 2019-08-19 09:48 ==
PROVIDERS: PCP Family Medicine; Visit Provider Urology
DX: R91.8 Other nonspecific abnormal finding of lung field (principal); R91.1 Solitary pulmonary nodule; J43.8 Other emphysema; J39.8 Other specified diseases of upper respiratory tract; I31.3 Pericardial effusion (noninflammatory); R31.9 Hematuria, unspecified; F17.210 Nicotine dependence, cigarettes, uncomplicated
CPT/HCPCS: 99213; 71260; J3490

== ENCOUNTER 2019-09-06 03:02 | Outpatient (CLI) | payer MEDICARE, SELFPAY ==
[2019-09-06 14:12] LABS: INR 2.1 (0.9-1.1); Prothrombin Time 20.9 sec (9.3-11.0)
== END 2019-09-06 03:22 ==
PROVIDERS: PCP Family Medicine; Visit Provider Family Medicine
DX: N32.89 Other specified disorders of bladder (principal); R31.9 Hematuria, unspecified; Z79.01 Long term (current) use of anticoagulants
CPT/HCPCS: 36415; 81003; 99213; 85610

== ENCOUNTER 2019-11-21 05:39 | Outpatient (CLI) | payer MEDICARE, SELFPAY ==
[2019-11-21 13:56] LABS: INR 2.3 (0.9-1.1); Prothrombin Time 22.4 sec (9.3-11.0)
== END 2019-11-21 05:59 ==
PROVIDERS: PCP Family Medicine; Visit Provider Family Medicine
DX: I48.91 Unspecified atrial fibrillation (principal); Z79.01 Long term (current) use of anticoagulants
CPT/HCPCS: 36415; 85610

== ENCOUNTER 2019-12-25 03:04 | Outpatient (CLI) | payer MEDICARE, SELFPAY ==
[2019-12-25 11:20] LABS: INR 2.4 (0.9-1.1); Prothrombin Time 23.5 sec (9.3-11.0)
[2019-12-25 11:21] LABS: CREATININE 1.24 mg/dL (0.70-1.30); Estimated GFR 56.53 (mL/min/1.73m2)
== END 2019-12-25 03:24 ==
PROVIDERS: PCP Family Medicine; Visit Provider Family Medicine
DX: R93.89 Abnormal findings on diagnostic imaging of other specified body structures (principal); Z79.1 Long term (current) use of non-steroidal anti-inflammatories (NSAID); I48.91 Unspecified atrial fibrillation
CPT/HCPCS: 36415; 82565; 85610

== ENCOUNTER 2020-01-29 03:42 | Outpatient (CLI) | payer MEDICARE, SELFPAY ==
[2020-01-29 10:38] LABS: Prothrombin Time 20.1 sec (9.3-11.0)
== END 2020-01-29 04:02 ==
PROVIDERS: PCP Family Medicine; Visit Provider Family Medicine
DX: I48.91 Unspecified atrial fibrillation (principal); Z79.01 Long term (current) use of anticoagulants
CPT/HCPCS: 36415; 85610

== ENCOUNTER 2020-02-17 01:39 | Outpatient (CLI) | payer MEDICARE, SELFPAY ==
--- NOTE | 2020-02-17 08:30 | DI.CT_ITS ---
EXAM: CT CHEST W CLINICAL HISTORY: density in RLL on CT of 07/2019- heavy smoker-. TECHNIQUE: Multi planar reconstructions were performed. CONTRAST MATERIAL: Omnipaque 350; 70 cc COMPARISON: CT CT CHEST W from 08/19/2019 FINDINGS: CHEST: LUNGS: Again noted are emphysematous changes in both lung scott. There is partially calcified scarr ing in the sub apical regions of both upper lobes which appears unchanged. . The previously describ ed stellate density in the right lower lobe posterior basal segment is no longer seen. This implies that it was most probably infectious. There are no new ominous focal nodules in the right lung. Als o no new significant left lung focal findings. No pleural effusions on either side. No new signific ant findings in the in the mainstem bronchi. There is mucus on the posterior wall of the trachea but not at nor distal to the level of the hari. MEDIASTINUM: There is no hilar nor mediastinal adenopathy. No subcarinal adenopathy.Thyroid gland siz e is normal but there are nodules in both thyroid lobes noted. CARDIAC: Heart size is normal. There is no pericardial effusion.The thoracic aorta is atheroscleroti c and the descending thoracic aorta exhibits ulcerated plaque. No dissection. There is an anatomic variant here in that the left vertebral artery originates as an independent vessel off the aortic arc h instead of typical origin off the left subclavian artery. VISUALIZED UPPER ABDOMEN:No significant adrenal masses . However, there are multiple hypodensities i n the liver, most of which appear to be cysts. In addition, there is the lesion the left hepatic lob e which is unchanged from 08/19/2019 has appearance of a possible subcapsular hemangioma although silva ewhat difficult to assess on this type of study. OSSEOUS: No significant osseous lesions.. IMPRESSION: 1. Compared to the prior CT scan of 08/19/2019 the previously described ominous appearing spiculated density in the right lower lobe has resolved, implying that it was most probably infectious. No new nodules nor pleural effusions nor intrathoracic adenopathy. I note that there is significant amount of mucus on the dependent wall of the trachea. There is no mucus below the level of hari. 2. Partially calcified scarring is noted in the sub apical regions of both upper lobes, the superimpo sed upon severe emphysematous changes throughout both lung scott. 3. Thyroid nodule seen in both lobes. Thyroid gland itself is not enlarged. 4. Incidental liver findings as described above including multiple cysts as well as a prominent lesi on in the left lobe which has appearance of a probable hemangioma and is unchanged from 08/19/2019. If clinically indicated this could be further studied with hemangioma protocol MRI study. 5. Incidentally noted is a small cyst in the inferior pole of the left kidney. Please note that the tire kidneys are not included in the field of view of this chest CT study. RADIATION DOSE DELIVERED: 449.38mGy.cm Total DLP DATA REPOSITORY: All CT scans at this facility are submitted to the National Radiology Data Registry (NRDR) Dose Index Registry (DIR) with the [employer] (ACR). RADIATION OPTIMIZATION: All CT scans at this facility use at least one of these dose optimization te chniques: automated exposure control; mA and/or kV adjustment per patient size (includes targeted exa ms where dose is matched to clinical indication); or iterative reconstruction.
[2020-02-17 12:30] LABS: CREATININE 1.25 mg/dL (0.70-1.30); Estimated GFR 56.01 (mL/min/1.73m2)
[2020-02-17 12:38] LABS: INR 2.4 (0.9-1.1); Prothrombin Time 23.5 sec (9.3-11.0)
[2020-02-17] MEDS: Omnipaque 350 MG/ML 100 ML BTL IV (13:08)
[2020-02-17] MEDS: Normal Saline Flush 10 ML SYR IVP (13:09)
[2020-02-17] MEDS: Normal Saline - Diluent 50 ML VIAL IV (13:09)
== END 2020-02-17 01:59 ==
PROVIDERS: PCP Family Medicine; Visit Provider Family Medicine
DX: R91.8 Other nonspecific abnormal finding of lung field (principal); F17.210 Nicotine dependence, cigarettes, uncomplicated; K76.89 Other specified diseases of liver; N28.1 Cyst of kidney, acquired; Z79.01 Long term (current) use of anticoagulants; I47.1 Supraventricular tachycardia
CPT/HCPCS: 71260; 82565; 85610; J3490

== ENCOUNTER 2020-04-22 03:58 | Outpatient (CLI) | payer MEDICARE, SELFPAY ==
[2020-04-22 12:54] LABS: INR 2.1 (0.9-1.1); Prothrombin Time 20.5 sec (9.3-11.0)
== END 2020-04-22 03:59 | disposition home or self-care (01) ==
LOC: LOS 03:59
PROVIDERS: PCP Family Medicine; Visit Provider Family Medicine
DX: I48.91 Unspecified atrial fibrillation (principal); Z79.01 Long term (current) use of anticoagulants
CPT/HCPCS: 36415; 85610

== ENCOUNTER 2020-05-27 03:33 | Outpatient (CLI) | payer MEDICARE, SELFPAY ==
[2020-05-27 09:25] LABS: INR 1.8 (0.9-1.1); Prothrombin Time 18.1 sec (9.3-11.0)
== END 2020-05-27 03:34 | disposition home or self-care (01) ==
LOC: LBO 03:34
PROVIDERS: PCP Family Medicine; Visit Provider Family Medicine
DX: I48.91 Unspecified atrial fibrillation (principal); Z79.01 Long term (current) use of anticoagulants
CPT/HCPCS: 36415; 85610

== ENCOUNTER 2020-06-24 04:43 | Outpatient (CLI) | payer MEDICARE, SELFPAY ==
[2020-06-24 13:33] LABS: INR 2.3 (0.9-1.1); Prothrombin Time 22.4 sec (9.3-11.0)
[2020-06-24 13:56] LABS: ALT 21 U/L (16-63); AST 18 U/L (15-37); Albumin 3.7 g/dL (3.4-5.0); Alkaline Phosphatase 111 U/L (46-116); Anion Gap 8.8 mmol/L (3-11); BUN 13 mg/dL (7-18); Bilirubin, Total 0.3 mg/dL (0.2-1.0); CO2 28.2 mmol/L (21.0-32.0); CREATININE 1.2 mg/dL (0.70-1.30); Calcium 9.5 mg/dL (8.5-10.1); Chloride 105 mmol/L (98-107); Estimated GFR 58.71 (mL/min/1.73m2); Glucose 97 mg/dL (74-106); Potassium 4.6 mmol/L (3.5-5.1); Sodium 142 mmol/L (136-145); TSH 1.46 uIU/mL (0.36-3.74)
[2020-06-24 16:54] LABS: PSA, Diagnostic 6.9 ng/mL (0.0-6.5)
== END 2020-06-24 04:44 | disposition home or self-care (01) ==
LOC: LBO 04:43
PROVIDERS: PCP Family Medicine; Visit Provider Family Medicine
DX: E04.2 Nontoxic multinodular goiter (principal); R97.20 Elevated prostate specific antigen [PSA]; I48.92 Unspecified atrial flutter; Z79.01 Long term (current) use of anticoagulants
CPT/HCPCS: 36415; 80053; 84153; 84443; 85610

== ENCOUNTER 2020-07-10 03:25 | Outpatient (CLI) | payer MEDICARE, SELFPAY ==
--- NOTE | 2020-07-10 07:00 | DI.US_ITS ---
Exam(s) US THYROID EXAM: US THYROID CLINICAL HISTORY: nodules on thyroid seen on chest CT of 2019,E04.2 TECHNIQUE: Ultrasound performed using standard protocol. COMPARISON: US Cardiac from 10/14/2016 FINDINGS: Thyroid ultrasound was performed according to the usual protocol. Thyroid gland is mildly heterogene ous in echotexture. Right lobe measures 48 x 18 x 19 millimeters and left lobe measures 48 x 17 x 14 millimeters. The isthmus is 3 millimeters in thickness. Small unremarkable appearing lymph nodes are noted in the cervical chains bilaterally. There are few less than 1 cm in diameter nodules seen in both thyroid lobes, the left thyroid lobe co ntains a mid pole nodule measuring 9 x 5 x 6 millimeters in diameter which is a TR 4 lesion by TI-RAD S criteria. No other worrisome nodules identified. No follow-up recommended for this TR 4 lesion less than 1 cm in diameter. IMPRESSION: DATA REPOSITORY:
== END 2020-07-10 03:45 ==
PROVIDERS: PCP Family Medicine; Visit Provider Family Medicine
DX: E04.2 Nontoxic multinodular goiter (principal)
CPT/HCPCS: 76536

== ENCOUNTER 2020-07-22 03:21 | Outpatient (CLI) | payer MEDICARE, SELFPAY ==
[2020-07-22 10:22] LABS: INR 1.9 (0.9-1.1); Prothrombin Time 19.1 sec (9.3-11.0)
== END 2020-07-22 03:22 | disposition home or self-care (01) ==
LOC: LBO 03:21
PROVIDERS: PCP Family Medicine; Visit Provider Family Medicine
DX: I48.91 Unspecified atrial fibrillation (principal); Z79.01 Long term (current) use of anticoagulants
CPT/HCPCS: 36415; 85610

== ENCOUNTER 2020-08-31 10:35 | Outpatient (CLI) | payer MEDICARE, SELFPAY ==
[2020-08-31 12:45] LABS: INR 2.2 (0.9-1.1); Prothrombin Time 21.6 sec (9.3-11.0)
== END 2020-08-31 10:36 | disposition home or self-care (01) ==
PROVIDERS: PCP Family Medicine; Visit Provider Family Medicine
DX: I48.91 Unspecified atrial fibrillation (principal); Z79.01 Long term (current) use of anticoagulants
CPT/HCPCS: 36415; 85610

== ENCOUNTER → 2020-09-15 08:46 | Outpatient (BNVA) | payer MEDICARE, SELFPAY | PROVIDERS: PCP Family Medicine; Referring Provider Family Medicine; Visit Provider Urology | DX: N40.1 Benign prostatic hyperplasia with lower urinary tract symptoms (principal); R35.0 Frequency of micturition; R39.15 Urgency of urination; R32 Unspecified urinary incontinence; R97.20 Elevated prostate specific antigen [PSA] | CPT/HCPCS: 81003; 99213; 99214 ==

== ENCOUNTER 2020-09-25 16:49 | Emergency (ER) | payer OTHER, SELFPAY ==
[2020-09-25 16:53] VITALS: BP 154/62; PULSE 92; RESP 16; TEMP 36.5; O2SAT 95
--- NOTE | 2020-09-25 16:55 | W.ED.GENAD ---
Discharge Plan Disposition Patient Disposition: HOME Condition: Improving Discharge Details Clinical Impression: Acute urinary retention Primary Care Provider: Sole Carter ED Provider: Ewelina Nichols Home Meds and New Rx's Prescriptions: Continued Anoro Ellipta 62.5-25 mcg/actuation blister with device 1 inh inhalation DAILY Qty: 60 RF: 3 warfarin 5 mg tablet 5 mg PO DAILY Qty: 90 RF: 6 diltiazem HCl 360 mg capsule,extended release 24hr 360 mg PO DAILY Qty: 90 RF: 4 Myrbetriq 50 mg tablet extended release 24 hr 50 mg PO DAILY Qty: 90 RF: 4 tamsulosin 0.4 mg capsule 0.4 mg PO HS Qty: 90 RF: 4 bisoprolol fumarate 5 mg tablet 5 mg PO DAILY Qty: 90 RF: 4 Discontinued Toviaz 8 mg tablet extended release 24 hr 8 mg PO DAILY Qty: 30 RF: 3 Discharge Instructions Instructions: Walker Catheter Placement and Care (ED), How to Change a Catheter Drainage Bag (DC) Additional Instructions: Please do not take any more of the new medication. He has a larger Walker drainage bag for overnight and longer periods of time. Use the leg bag during the day when you are up and moving about. Drains the leg bag at least 3-4 times a day. Please return to the emergency department if you encounter any problems with the Walker not draining, increased blood clots, increased abdominal pain, or pressure over the next 2 days. You may still continue to have some blood-tinged urine output over the next couple of days not as expected. However it should not be grossly bloody or have large blood clots. Call Dr. Carbone's office Monday to schedule an appointment. Referrals: Sole Carter MD [Primary Care Provider] - Fei Carbone MD [ [facility] STAFF PHYSICIAN] - 2 days (Acute urinary retention) Medical Decision Making Patient was unable to give a sufficient amount of urine for urinalysis, bladder scan shows between 450 to 700 cc, Walker ordered at this time to further evaluate urinalysis and determine retention and output, patient is in agreement with plan. 1816: Informed by billing and accounting staff assistant that patient has bright red blood output of the Walker catheter. They did place a 14 [place] catheter with some difficulty. He has had 200 output initially. At this time patient is denying any abdominal pain or pressure. Ordered for manual irrigation until clear. Labs, CT abd/Pelvis ordered. 183: Patient has had a total of 725 mls urine output via Walker. 190: Informed by ER staff they have irrigated total of 750 cc of sterile saline, continue to get bright red output. Instructed to stop irrigating, will observe wait for CT. CBC shows leukocytosis 13.79 white blood cell count, hemoglobin 11.9, hematocrit 30.2 absolute neutrophils 1.58 PT 25.6 INR is 2.6, urinalysis shows large blood greater than 50 RBCs negative for bacteria negative for leukocyte no nitrite culture is not indicated at this time. CT ABDOMEN PELVIS WO/W 08/15/2019 4:09 PM FINDINGS: Lungs: Severe emphysematous changes noted in the lung bases. Areas of pleuroparenchymal scar noted bilaterally. Heart: Mild pericardial effusion. Liver: Multiple hepatic cysts are unchanged. Probable 2.6 cm hemangioma in the left lateral segment is unchanged. Gallbladder and bile ducts: Normal. No calcified stones. No ductal dilation. Pancreas: Normal. No ductal dilation. Spleen: Normal. No splenomegaly. Adrenal glands: Normal. No mass. Kidneys and ureters: Fat stranding and mild fluid are noted around both kidneys. Mild left hydronephrosis noted. Kidneys enhance symmetrically and uniformly. Peripheral vascular calcifications noted on the right. A small left inferior pole cyst is observed, 0.8 cm. Nonobstructing 3 mm stone noted on the left. The left ureter is mildly dilated. There are no stones observed within the ureters. Stomach and bowel: Stomach is collapsed. Small bowel is not dilated. Moderate proximal stool noted. Extensive diverticulosis noted in the descending and sigmoid colon. No focal inflammatory changes appreciated. Appendix: Normal retrocecal appendix. Intraperitoneal space: Unremarkable. No free air. No significant fluid collection. Vasculature: Negative for aneurysm. Moderate vascular calcifications present. Lymph nodes: Negative for retroperitoneal lymphadenopathy. Urinary bladder: Urinary bladder is moderately distended. Lee appear thin and uniform, and there are no focal areas of bladder wall enhancement. There are no diverticula. There are no gross polypoid mass is appreciated. A small amount of air is present in the urinary bladder. Reproductive: Prostate gland is large with coarse calcifications. The Walker catheter balloon is inflated within the prostatic urethra. Prostatic impression on the urinary bladder is noted. Seminal vesicles are unremarkable. Bones/joints: Negative for compression fracture in the visualized spine. There is no significant degenerative disc disease. Mild multilevel facet arthropathy noted. Soft tissues: Surgical coils noted around the right inguinal canal. Negative for hernia or abdominal wall fluid collection. IMPRESSION: 1. Walker catheter balloon positioned at the prostatic urethra. Repositioning or removal advised. 2. Mildly distended urinary bladder. Negative for gross bladder mass. Correlate with cystoscopy as indicated. 3. Bilateral perinephric fat stranding and fluid. Mildly dilated left ureter. Negative for obstructing stones. Increased interstitial pressures considered. Correlate for any suspicion of pyelonephritis. 4. Severe distal colonic diverticulosis, without diverticulitis. Thank you for allowing us to participate in the care of your patient. Dictated and Authenticated by: John Carbone MD 2041: Patient reevaluated by myself, balloon deflated on the Walker catheter slowly advanced all the way to the hub balloon reinflated patient tolerated well no complaints of pain. There is bright red gross hematuria noted in the Walker catheter tube. Urology paged, Dr. Carbone did call back but we are disconnected. Second page out at this time. At this time three-way bladder irrigation ordered to keep patient clot free. After discussing with urology will consider admission versus transfer versus discharge home with Walker catheter if clots subside. 2055: Spoke with Dr. Carbone who recommends attempting insertion of a 20-gauge regular Walker catheter and hand irrigation to clear. She also recommends holding the new medication for the next 2 to 3 days until the can see him in the clinic on Monday to have the Walker catheter removed. He does suspect that the medication caused the acute urinary retention. If still unable to drain due to clots patient will probably need to be admitted and or transferred to a facility that has urology coverage over the weekend. 2132: RN placed 20ga Walker catheter, Walker is draining with little difficulty, discussed home care and leg bag care with patient and daughter who verbalized understanding. Instructed strict return instructions and follow-up with urology on Monday morning. Patient remained hemodynamically stable alert and oriented throughout the remainder of the stay. HPI General Mode of arrival: ambulatory. Date/Time Provider Initiated Documentation: 09/25/20 16:50. Limitations to Documentation: no limitations. Information obtained by: patient, RN notes reviewed and old records reviewed. HPI Narrative: 80-year-old male with a past medical history of COPD, prostatic hyperplasia, SVT, emphysema, urinary frequency and incontinence presents to the ER chief complaint of urinary urgency, urinary incontinence, and dysuria. Patient was recently started on a new anticholinergic medication by urology fesoterodine 8 mg tablets daily. Patient just began the new medication yesterday and has taken 1 dose. He does endorse emesis x1 earlier today. Per daughter reports patient has been incontinent approximately 5 or 6 times today, and has continued to have dribbling output since then. Related Data Home Medications Medication Instructions Recorded Confirmed warfarin 5 mg tablet 5 mg PO DAILY #90 tab-cap 11/20/19 09/25/20 diltiazem HCl 360 mg 360 mg PO DAILY #90 tab-cap 05/28/20 09/25/20 capsule,extended release 24 hr umeclidinium 62.5 mcg-vilanterol 1 inh INHALATION DAILY #60 ea 06/16/20 09/25/20 25 mcg/actuation powdr for inhalation mirabegron 50 mg tablet,extended 50 mg PO DAILY #90 tab-cap 08/10/20 09/25/20 release 24 hr tamsulosin 0.4 mg capsule 0.4 mg PO HS #90 cap 08/10/20 09/25/20 bisoprolol fumarate 5 mg tablet 5 mg PO DAILY #90 tab 09/14/20 09/25/20 Previous Rx's Medication Instructions Recorded warfarin 5 mg tablet 5 mg PO DAILY #90 tab-cap 11/20/19 diltiazem HCl 360 mg 360 mg PO DAILY #90 tab-cap 05/28/20 capsule,extended release 24 hr umeclidinium 62.5 mcg-vilanterol 1 inh INHALATION DAILY #60 ea 06/16/20 25 mcg/actuation powdr for inhalation mirabegron 50 mg tablet,extended 50 mg PO DAILY #90 tab-cap 08/10/20 release 24 hr tamsulosin 0.4 mg capsule 0.4 mg PO HS #90 cap 08/10/20 bisoprolol fumarate 5 mg tablet 5 mg PO DAILY #90 tab 09/14/20 Allergies Allergy/AdvReac Type Severity Reaction Status Date / Time metoprolol AdvReac Mild DIARRHEA Verified 09/25/20 16:56 General Stated Complaint: Urinary KELLI: 4 Review of Systems All systems reviewed & are unremarkable except as noted in HPI and below Gastrointestinal Gastrointestinal: Reports vomiting (x1 earlier today) Genitourinary Genitourinary: Reports as per HPI, Reports difficulty urinating, Reports dysuria, Reports urinary frequency and Reports urinary incontinence [facility] Medical History Benign non-nodular prostatic hyperplasia with lower urinary tract symptoms (12/10/14) COPD (chronic obstructive pulmonary disease) Elevated PSA (07/19/16) Emphysema of lung Multiple thyroid nodules Paroxysmal atrial fibrillation POLST (Physician Orders for Life-Sustaining Treatment) SVT (supraventricular tachycardia) (02/27/15) Holter : multiple SVT/long duration/intol. 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 Paternal Grandfather No problems noted. Social History Smoking/Tobacco Use Status: Current every day Tobacco Type: cigarettes Smoking risk assessment performed?: Yes Alcohol Intake: former Counseling given: No Drug use: Never Substance use type: does not use Household members: spouse Pets and animals: No Sexually active: No Do you think of yourself as: straight/heterosexual Current gender identity: male Evy/Congregational: worship Seatbelt use: always Helmet use: No Drive intox or ride w/intox race car driver: No Do you feel safe at home: Yes Do you feel safe in your relationship?: Yes Exam Narrative Exam Narrative: Constitutional: Alert and oriented x3. Appears stated age. Thin body habitus. Head: Normocephalic, no trauma. Eyes: Pupils PERRLA, Red reflex noted, EOM's intact. Eyelids symmetrical without lesions, discharge, or swelling. ENT: Bilateral TM's WNL, External ear normal to inspection, no mastoid TTP, swelling, or erythema, Nasal turbinates WNL, no nasal discharge. Normal dentition, Posterior pharynx WNL, no exudate. Chest: RRR, Normal S1, S2, distal pulses intact. Resp: Wet cough noted, history of COPD. Scattered rhonchorous lung sounds bilaterally. Abdomen: No significant bladder distention with palpation, bladder scan per ER staff shows between 450 to 700 cc. Musculoskeletal: Normal gait, 4/5 strength to all four extremities. Skin: No suspicious rashes or lesions. Capillary refill less than 2 sec. Neurologic: Cranial nerves II-XII intact. Alert and oriented x 3. DTR's intact. Hematologic/Lymphatic: No ecchymosis, no lymphadenopathy. Course Vital Signs Vital signs: Vital Signs Temperature 36.5 C 09/25/20 16:53 Pulse 92 H 09/25/20 16:53 Respiratory Rate 16 09/25/20 16:53 Blood Pressure 154/62 H 09/25/20 16:53 Pulse Oximetry 95 09/25/20 16:53 Temperature 36.5 C 09/25/20 16:53 Temperature Source Skin 09/25/20 16:53 Pulse 92 H 09/25/20 16:53 Respiratory Rate 16 09/25/20 16:53 Blood Pressure 154/62 H 09/25/20 16:53 Blood Pressure Position Sitting 09/25/20 16:53 Pulse Oximetry 95 09/25/20 16:53 Oxygen Delivery Method Room Air 09/25/20 16:53 Oxygen Flow Rate 0 09/25/20 16:53 Pain Level 0 09/25/20 16:53
[2020-09-25] MEDS: Lidocaine 2% Jelly 6 ML SYR ×2 (17:39→21:15)
--- NOTE | 2020-09-25 18:15 | DI.CT_ITS ---
Exam(s) CT ABDOMEN PELVIS W EXAM: CT ABDOMEN PELVIS W CLINICAL HISTORY: Hx Bladder mass, Hematuria post ballesteros insertion TECHNIQUE: COMPARISON: CT CT ABDOMEN PELVIS WO/W from 08/15/2019 FINDINGS: CT examination of the abdomen and pelvis was performed with bolus infusion of 100 cc of Omnipaque 350 . Images obtained through the lung bases show severe pulmonary emphysematous changes. There are multiple hepatic cysts and a presumed left lobe hepatic hemangioma, these findings are unch anged from prior CT of July 2019. Spleen is unremarkable in appearance.. Gallbladder and bile ducts are unremarkable. Pancreas is unremarkable in appearance. Adrenals appear normal bilaterally. Kidneys are normal in size and shape and show normal cortical enhancement. Incidental lower pole lef t renal cyst and nonobstructing left renal calculus noted. Mildly dilated ureters bilaterally, nonsp ecific, no definite hydronephrosis. There is a Ballesteros catheter with its balloon inflated in the prostatic urethra. Urinary bladder is mod erately distended and contains gas but is otherwise unremarkable. There is no evidence of abdominal or pelvic adenopathy. Abdominal aorta is of normal diameter with de nse wall calcifications of the aorta and major branch vessels period possible high-grade stenosis cong iac trunk noted. Possible high-grade stenosis proximal left renal artery noted period.. Appendix is normal. No evidence diverticulitis or bowel obstruction. No significant abdominal wall hernia seen. Impression: N Ballesteros catheter balloon inflated in prostatic urethra. Question slight bilateral ureteral dilatation, nonspecific, this could be due to bladder distention. Nonobstructing left renal calculus noted. RADIATION DOSE DELIVERED: 548.05mGy.cm Total DLP 548.05mGy.cm Total DLP 11.35mGy CTDIvol DATA REPOSITORY: All CT scans at this facility are submitted to the National Radiology Data Registry (NRDR) Dose Index Registry (DIR) with the [employer] (ACR). RADIATION OPTIMIZATION: All CT scans at this facility use at least one of these dose optimization te chniques: automated exposure control; mA and/or kV adjustment per patient size (includes targeted exa ms where dose is matched to clinical indication); or iterative reconstruction.
[2020-09-25 18:31] LABS: Bilirubin Negative (Negative); Blood Large (Negative); Clarity Sl Cloudy (Clear); Glucose Negative (Negative); Ketones Negative (Negative); Leukocyte Esterase Negative (Negative); Nitrite Negative (Negative); Urobilinogen 0.2 EU/dL (Up TO 0.2); pH 5.5 (5-8)
[2020-09-25 18:39] LABS: Bacteria Negative HPF (Negative); C & S Indicated? No; Casts Negative LPF (Negative); Crystals Negative HPF (Negative); Epithelial Cells Rare HPF (Negative); Mucus Negative (Negative); RBC >50 HPF (0-2); WBC 0-2 HPF (0-5)
[2020-09-25 18:46] LABS: Abs Immature Grans 0.07 10^3/uL (0.0-0.06); Absolute Monocyte Count 1.32 10^3/uL (0.1-0.8); Basophils % 0.1; HCT 36.2 % (40.0-50.0); HGB 11.9 g/dL (13.5-17.5); Immature Grans % 0.5; Lymphocytes % 5.3; MCH 29.4 pg (27.0-33.0); MCHC 32.9 % (32.0-36.0); MCV 89.4 fL (80-95); MPV 8.7 fL (8.0-11.0); Monocytes % 9.6; Neutrophils % 84.5; Nucleated RBC 0 %; Platelet Count 235 10^3/uL (130-400); RBC 4.05 10^6/uL (4.36-5.78); RDW 12.9 % (11.8-14.1); RDW-SD 42.5 fL
[2020-09-25 18:47] LABS: Absolute Basophil Count 0.01 10^3/uL (0.0-0.2); Absolute Lymphocyte Count 0.73 10^3/uL (1.2-3.4); Absolute Neutrophil Count 11.58 10^3/uL (1.2-6.7)
[2020-09-25 18:56] LABS: INR 2.6 (0.9-1.1); Prothrombin Time 25.6 sec (9.3-11.0)
[2020-09-25 19:08] LABS: ALT 18 U/L (16-63); AST 22 U/L (15-37); Albumin 3.3 g/dL (3.4-5.0); Alkaline Phosphatase 112 U/L (46-116); Anion Gap 9.7 mmol/L (3-11); BUN 25 mg/dL (7-18); Bilirubin, Total 0.3 mg/dL (0.2-1.0); CO2 26.3 mmol/L (21.0-32.0); CREATININE 1.5 mg/dL (0.70-1.30); Calcium 9.3 mg/dL (8.5-10.1); Chloride 108 mmol/L (98-107); Estimated GFR 45.26 (mL/min/1.73m2); Glucose 137 mg/dL (74-106); Potassium 4.2 mmol/L (3.5-5.1); Sodium 144 mmol/L (136-145); Total Protein 6.9 g/dL (6.4-8.2)
[2020-09-25] MEDS: Omnipaque 350 MG/ML 100 ML BTL IJ (19:23)
[2020-09-25] MEDS: Normal Saline - Diluent 50 ML VIAL IV (19:24)
[2020-09-25] MEDS: Normal Saline Flush 10 ML SYR IVP (19:24)
[2020-09-25 19:45] VITALS: BP 118/53; PULSE 88; RESP 18; O2SAT 96
[2020-09-25 20:15] VITALS: BP 109/49; PULSE 88; RESP 16; O2SAT 96
--- NOTE | 2020-09-25 20:16 | DI.VRAD_ITS ---
PROCEDURE INFORMATION: Exam: CT Abdomen And Pelvis With Contrast Exam date and time: 09/25/2020 6:30 PM Age: 80 years old Clinical indication: Other: HX bladder mass, hematuria post ballesteros insertion TECHNIQUE: Imaging protocol: Computed tomography of the abdomen and pelvis with contrast. Radiation optimization: All CT scans at this facility use at least one of these dose optimization techniques: automated exposure control; mA and/or kV adjustment per patient size (includes targeted exams where dose is matched to clinical indication); or iterative reconstruction. Contrast material: OMNIPAQUE 350; Contrast volume: 100 ml; Contrast route: INTRAVENOUS (IV); COMPARISON: CT ABDOMEN PELVIS WO/W 08/15/2019 4:09 PM FINDINGS: Lungs: Severe emphysematous changes noted in the lung bases. Areas of pleuroparenchymal scar noted bilaterally. Heart: Mild pericardial effusion. Liver: Multiple hepatic cysts are unchanged. Probable 2.6 cm hemangioma in the left lateral segment is unchanged. Gallbladder and bile ducts: Normal. No calcified stones. No ductal dilation. Pancreas: Normal. No ductal dilation. Spleen: Normal. No splenomegaly. Adrenal glands: Normal. No mass. Kidneys and ureters: Fat stranding and mild fluid are noted around both kidneys. Mild left hydronephrosis noted. Kidneys enhance symmetrically and uniformly. Peripheral vascular calcifications noted on the right. A small left inferior pole cyst is observed, 0.8 cm. Nonobstructing 3 mm stone noted on the left. The left ureter is mildly dilated. There are no stones observed within the ureters. Stomach and bowel: Stomach is collapsed. Small bowel is not dilated. Moderate proximal stool noted. Extensive diverticulosis noted in the descending and sigmoid colon. No focal inflammatory changes appreciated. Appendix: Normal retrocecal appendix. Intraperitoneal space: Unremarkable. No free air. No significant fluid collection. Vasculature: Negative for aneurysm. Moderate vascular calcifications present. Lymph nodes: Negative for retroperitoneal lymphadenopathy. Urinary bladder: Urinary bladder is moderately distended. Lee appear thin and uniform, and there are no focal areas of bladder wall enhancement. There are no diverticula. There are no gross polypoid mass is appreciated. A small amount of air is present in the urinary bladder. Reproductive: Prostate gland is large with coarse calcifications. The Ballesteros catheter balloon is inflated within the prostatic urethra. Prostatic impression on the urinary bladder is noted. Seminal vesicles are unremarkable. Bones/joints: Negative for compression fracture in the visualized spine. There is no significant degenerative disc disease. Mild multilevel facet arthropathy noted. Soft tissues: Surgical coils noted around the right inguinal canal. Negative for hernia or abdominal wall fluid collection. IMPRESSION: 1. Ballesteros catheter balloon positioned at the prostatic urethra. Repositioning or removal advised. 2. Mildly distended urinary bladder. Negative for gross bladder mass. Correlate with cystoscopy as indicated. 3. Bilateral perinephric fat stranding and fluid. Mildly dilated left ureter. Negative for obstructing stones. Increased interstitial pressures considered. Correlate for any suspicion of pyelonephritis. 4. Severe distal colonic diverticulosis, without diverticulitis. Dictated and Authenticated by: John Carbone MD. Ordering:AVIS Theodore MD
[2020-09-25] MEDS: Normal Saline 1,000 ML 150 ML IV (20:30)
[2020-09-25 20:45] VITALS: BP 121/68; PULSE 88; RESP 16; O2SAT 97
[2020-09-25 21:15] VITALS: BP 118/54; PULSE 83; RESP 16; O2SAT 97
[2020-09-25] MEDS: Lidocaine 2% Jelly 11 ML SYR UR (21:15)
[2020-09-25 21:45] VITALS: BP 124/87; PULSE 81; RESP 16; O2SAT 96
== END 2020-09-25 22:20 | disposition home or self-care (01) ==
PROVIDERS: Emergency Provider Registered Nurse Emergency; PCP Family Medicine
DX: R33.9 Retention of urine, unspecified (principal); I48.0 Paroxysmal atrial fibrillation
CPT/HCPCS: 36415; 51702; 80053; 96360; 96361; 99285; 74177; 81003; 81015; 85025; 85610; 99284; J3490

== ENCOUNTER 2020-09-27 10:55 | Emergency (ER) | payer OTHER, SELFPAY ==
[2020-09-27 10:59] VITALS: BP 123/57; PULSE 76; RESP 16; TEMP 36.8; O2SAT 95
--- NOTE | 2020-09-27 11:10 | W.ED.GENAD ---
Discharge Plan Disposition Patient Disposition: HOME Condition: Improving Discharge Details Clinical Impression: Complication, blocked Walker catheter, Hematuria Primary Care Provider: Sole Carter ED Provider: Otoniel Villegas Home Meds and New Rx's Prescriptions: New cephalexin 500 mg capsule 500 mg PO BID Qty: 14 RF: 0 Continued Anoro Ellipta 62.5-25 mcg/actuation blister with device 1 inh inhalation DAILY Qty: 60 RF: 3 warfarin 5 mg tablet 5 mg PO DAILY Qty: 90 RF: 6 diltiazem HCl 360 mg capsule,extended release 24hr 360 mg PO DAILY Qty: 90 RF: 4 Myrbetriq 50 mg tablet extended release 24 hr 50 mg PO DAILY Qty: 90 RF: 4 tamsulosin 0.4 mg capsule 0.4 mg PO HS Qty: 90 RF: 4 bisoprolol fumarate 5 mg tablet 5 mg PO DAILY Qty: 90 RF: 4 Discharge Instructions Instructions: Walker Catheter Placement and Care (ED), Hematuria (ED) Additional Instructions: Walker catheter was removed, a larger Walker catheter placed and you appear to be once again draining your bladder appropriately. Urinalysis is pending, this can be followed tomorrow at your appointment. Please watch for new or worsening symptoms and return to the ER for any concerns. Contact the office of Dr. Carbone, urology, first thing tomorrow morning to discuss your recent to ER visit and need for outpatient reevaluation. Referrals: Fei Carbone MD [ [facility] STAFF PHYSICIAN] - Discharge Data Discharge Date/Time-TO BE ENTERED AT DEPARTURE: 09/27/20 13:39 Medical Decision Making 80-year-old gentleman presents to the ER for Walker catheter malfunction. Patient was experiencing urinary retention likely secondary to a new medication, seen in the ER, work-up completed with urology consultation, subsequently discharged with an indwelling Walker catheter, 20-gauge. Was functioning well, woke up this morning and has not been flowing. Patient continues to say that his urine output is bloody. Reports suprapubic pain and pressure otherwise asymptomatic, denies fever, nausea, vomiting. Plan is to consult with Dr. Carbone and in the meantime obtain bladder scan and likely flushing. Bladder scan 337cc. Attempted to flush approximately 40 cc of sterile water, patient could not tolerate, Walker catheter is not functioning. Discussed options with patient, he is currently quite upset and would like the input of Dr. Carbone. A second call was placed. Unfortunately we did not hear back from Dr. 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 I had a very transparent conversation with patient and his family. We discussed multiple options, patient would like to have the Walker catheter removed and he would like to try to urinate Walker catheter removed, patient unable to urinate We once again discussed our options, plan is to place a 22-gauge catheter, hopefully the larger size will result in better flow. 22-gauge catheter placed, Urojet used, patient tolerated well. Walker catheter freely draining bloody looking urine, not bright red, no clots noticed, approximately 500 cc total. Patient reports that he feels asymptomatic and is requesting discharge. Will obtain urinalysis Patient was discharged. Upon reviewing his urinalysis, greater than 50 white cells, large leuk esterase, likely UTI. I was able to contact the patient at approximately 3:30 PM on September 27, 2020 on his home phone. I reviewed his previous urine culture and sensitivity, will initiate Keflex therapy. I faxed a prescription and called the pharmacy personally, they will have the prescription filled before 5 PM when they closed. Patient has no additional questions on the phone. Encouraged to return to the ER for new or worsening symptoms, otherwise will follow-up with Dr. Carbone tomorrow Medical Records Medical records reviewed: Yes I reviewed the patient's medical records. Lab Data Lab results reviewed: Yes I reviewed the patient's lab results. Labs: 09/27/20 13:15 Urine - Reflex from Ua Urine Culture - Pending Laboratory Tests Range/Units 09/27/20 13:15 Urine Color (Yellow) Red Urine Clarity (Clear) Cloudy Urine pH (5-8) 5.5 Ur Specific [place] (1.005-1.025) 1.020 Urine Protein (Negative) mg/dL >=300 H Urine Ketones (Negative) mg/dL 15 H Urine Blood (Negative) Large H Urine Nitrite (Negative) Negative Urine Bilirubin (Negative) Large H Urine Urobilinogen (Up TO 0.2) EU/dL 2.0 H Ur Leukocyte Esterase (Negative) Large H Urine RBC (0-2) HPF >50 H Urine WBC (0-5) HPF >50 H Ur Epithelial Cells Not Applicable Urine Crystals Not Applicable Urine Bacteria (Negative) HPF Urine Mucus Not Applicable Ur Culture Indicated? Yes Urine Glucose (Negative) mg/dL Negative HPI General Mode of arrival: ambulatory. Date/Time Provider Initiated Documentation: 09/27/20 10:59. Limitations to Documentation: no limitations. Information obtained by: patient and family. HPI Narrative: This is a 80-year-old gentleman, past medical history BPH, COPD, proximal atrial fibrillation, on Coumadin, presenting to the ER today reporting a Walker catheter issue. He states that his Walker catheter does not drain overnight, now feels bladder fullness and discomfort. Patient was initially seen in the ER 2 days ago, urinary retention at that time, appears as though there was a traumatic Walker catheter, urology was consulted. Thought was that his new anticholinergic medication cost urinary retention, work-up ensued, catheter draining appropriately, and plan was to leave catheter over the weekend and patient to follow-up with Dr. Carbone on Monday. Patient states that since he left the ER 2 days ago there has been bloody urine in the leg bag but no clots. Otherwise he feels okay, denies fever, chest pain, shortness of breath, nausea, vomiting or back pain, penile pain. Initial bladder scan in the ER revealed 337 cc. Related Data Home Medications Medication Instructions Recorded Confirmed warfarin 5 mg tablet 5 mg PO DAILY #90 tab-cap 11/20/19 09/27/20 diltiazem HCl 360 mg 360 mg PO DAILY #90 tab-cap 05/28/20 09/27/20 capsule,extended release 24 hr umeclidinium 62.5 mcg-vilanterol 1 inh INHALATION DAILY #60 ea 06/16/20 09/27/20 25 mcg/actuation powdr for inhalation mirabegron 50 mg tablet,extended 50 mg PO DAILY #90 tab-cap 08/10/20 09/27/20 release 24 hr tamsulosin 0.4 mg capsule 0.4 mg PO HS #90 cap 08/10/20 09/27/20 bisoprolol fumarate 5 mg tablet 5 mg PO DAILY #90 tab 09/14/20 09/25/20 cephalexin 500 mg PO BID #14 cap 09/27/20 Previous Rx's Medication Instructions Recorded warfarin 5 mg tablet 5 mg PO DAILY #90 tab-cap 11/20/19 diltiazem HCl 360 mg 360 mg PO DAILY #90 tab-cap 05/28/20 capsule,extended release 24 hr umeclidinium 62.5 mcg-vilanterol 1 inh INHALATION DAILY #60 ea 06/16/20 25 mcg/actuation powdr for inhalation mirabegron 50 mg tablet,extended 50 mg PO DAILY #90 tab-cap 08/10/20 release 24 hr tamsulosin 0.4 mg capsule 0.4 mg PO HS #90 cap 08/10/20 bisoprolol fumarate 5 mg tablet 5 mg PO DAILY #90 tab 09/14/20 cephalexin 500 mg PO BID #14 cap 09/27/20 Allergies Allergy/AdvReac Type Severity Reaction Status Date / Time metoprolol AdvReac Mild DIARRHEA Verified 09/27/20 11:05 General Stated Complaint: Urinary KELLI: 4 Review of Systems Constitutional Constitutional: Denies fever(s) Cardiovascular Cardiovascular: Denies chest pain and Denies dyspnea Respiratory Respiratory: Denies dyspnea Gastrointestinal Gastrointestinal: Reports abdominal pain (Suprapubic pressure), Denies nausea and Denies vomiting Genitourinary Genitourinary: Reports hematuria Musculoskeletal Musculoskeletal: Denies back pain Integumentary/Breasts Skin/Breast: Denies erythema Hematologic/Lymphatic Hematologic/Lymphatic: Reports easy bleeding and Reports easy bruising PENDING SALE TO [facility] Medical History Benign non-nodular prostatic hyperplasia with lower urinary tract symptoms (12/10/14) COPD (chronic obstructive pulmonary disease) Elevated PSA (07/19/16) Emphysema of lung Multiple thyroid nodules Paroxysmal atrial fibrillation POLST (Physician Orders for Life-Sustaining Treatment) SVT (supraventricular tachycardia) (02/27/15) Holter : multiple SVT/long duration/intol. 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 Paternal Grandfather No problems noted. 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: No Do you feel safe at home: Yes Do you feel safe in your relationship?: Yes Exam Const General: cooperative, healthy appearing, comfortable and no acute distress Orientation: alert and awake HENMT Head: normal to inspection, normocephalic and atraumatic Eyes General: appearance normal, both eyes and all related structures Conjunctivae: conjunctivae normal Neck Neck: normal visual inspection, trachea midline and supple Resp Effort & Inspection: normal respiratory effort and able to speak in complete sentences Auscultation: clear to auscultation bilaterally Cardio Rate: regular rate Rhythm: regular rhythm GI Inspection: normal to inspection Palpation: soft, not firm, no guarding, no pulsatile masses and tender (Mild suprapubic region) with no rebound tenderness Auscultation: normal bowel sounds Other: Walker catheter in place, otherwise unremarkable Back/Spine/Pelvis Back: No back tenderness Skin General skin exam: no rashes or lesions noted Neuro General: patient alert, patient awake, moves all extremities and no focal motor deficits Sensory Exam: no sensory deficits noted Psych Appearance: grossly normal Mental Status: mental status grossly normal Course Vital Signs Vital signs: Vital Signs Temperature 36.8 C 09/27/20 10:59 Pulse 76 09/27/20 10:59 Respiratory Rate 16 09/27/20 10:59 Blood Pressure 123/57 L 09/27/20 10:59 Pulse Oximetry 95 09/27/20 10:59 Temperature 36.8 C 09/27/20 10:59 Temperature Source Skin 09/27/20 10:59 Pulse 76 09/27/20 10:59 Respiratory Rate 16 09/27/20 10:59 Respiratory Effort Non-Labored 09/27/20 10:59 Blood Pressure 123/57 L 09/27/20 10:59 Blood Pressure Position Supine 09/27/20 10:59 Pulse Oximetry 95 09/27/20 10:59 Oxygen Delivery Method Room Air 09/27/20 10:59 Oxygen Flow Rate 0 09/27/20 10:59 Pain Level 7 09/27/20 10:59
[2020-09-27] MEDS: Lidocaine 2% Jelly 6 ML SYR (13:10)
[2020-09-27 13:32] VITALS: BP 100/57; PULSE 82; RESP 16; TEMP 36.9; O2SAT 100
[2020-09-27 13:47] LABS: Bilirubin Large (Negative); Blood Large (Negative); Clarity Cloudy (Clear); Glucose Negative (Negative); Ketones 15 mg/dL (Negative); Leukocyte Esterase Large (Negative); Nitrite Negative (Negative); pH 5.5 (5-8)
[2020-09-27 13:58] LABS: C & S Indicated? Yes; RBC >50 HPF (0-2); WBC >50 HPF (0-5)
== END 2020-09-27 13:39 | disposition home or self-care (01) ==
PROVIDERS: Emergency Provider Physician Assistant; PCP Family Medicine
DX: T83.091A Other mechanical complication of indwelling urethral catheter, initial encounter (principal); R31.0 Gross hematuria; N40.1 Benign prostatic hyperplasia with lower urinary tract symptoms; R33.8 Other retention of urine; N39.0 Urinary tract infection, site not specified; Z79.01 Long term (current) use of anticoagulants; Z96.0 Presence of urogenital implants
CPT/HCPCS: 51702; 99283; 81003; 81015; 87086

== ENCOUNTER → 2020-09-28 09:39 | Outpatient (BNVA) | payer OTHER, SELFPAY | PROVIDERS: PCP Family Medicine; Referring Provider Family Medicine; Visit Provider Urology | DX: R31.9 Hematuria, unspecified (principal); T44.3X5A Adverse effect of other parasympatholytics [anticholinergics and antimuscarinics] and spasmolytics, initial encounter; R33.8 Other retention of urine | CPT/HCPCS: 51700; 99212 ==

== ENCOUNTER → 2020-10-02 09:19 | Outpatient (BNVA) | payer OTHER, SELFPAY | PROVIDERS: PCP Family Medicine; Referring Provider Family Medicine; Visit Provider Urology | DX: R33.8 Other retention of urine (principal); I48.0 Paroxysmal atrial fibrillation; Z79.01 Long term (current) use of anticoagulants; Z46.6 Encounter for fitting and adjustment of urinary device | CPT/HCPCS: 51702; 99213 ==

== ENCOUNTER 2020-10-03 05:06 | Emergency (ER) | payer OTHER, SELFPAY ==
--- NOTE | 2020-10-03 05:08 | ED.GENADUL_ITS ---
Discharge Plan Disposition Patient Disposition: HOME Condition: Good Discharge Details Clinical Impression: Complication, blocked Walker catheter Primary Care Provider: Sole Carter ED Provider: Rafi Rowan Home Meds and New Rx's Prescriptions: Continued Anoro Ellipta 62.5-25 mcg/actuation blister with device 1 inh inhalation DAILY Qty: 60 RF: 3 tamsulosin 0.4 mg capsule 0.8 mg PO HS Qty: 90 RF: 4 warfarin 5 mg tablet 5 mg PO DAILY Qty: 90 RF: 6 diltiazem HCl 360 mg capsule,extended release 24hr 360 mg PO DAILY Qty: 90 RF: 4 bisoprolol fumarate 5 mg tablet 5 mg PO DAILY Qty: 90 RF: 4 cephalexin 500 mg capsule 500 mg PO BID Qty: 14 RF: 0 Discharge Instructions Additional Instructions: Resume previous medications and follow-up with Dr. Carbone as previously planned. Return to ED for the following problems, fever, abdominal pain, other concerns Referrals: Fei Carbone MD [ [facility] STAFF PHYSICIAN] - Medical Decision Making Patient continues to have issues with intermittent Walker catheter blockage. Typically does not tolerate attempts at irrigation. We will simply replace Walker and irrigate bladder once change has been completed. Patient to continue on antibiotic and follow-up with Dr. Carbone as previously planned. HPI General Mode of arrival: ambulatory . Date/Time Provider Initiated Documentation: 10/03/20 05:08 . Limitations to Documentation: no limitations . Information obtained by: patient, RN notes reviewed and old records reviewed . HPI Narrative: Patient presents to the ED with suprapubic pain and pressure secondary to Walker catheter no longer draining. Patient has been seen in the ED and by Dr. Carbone a few times now in the last couple of. Currently being treated for UTI and is waiting to be scheduled for surgery for his urinary retention and BPH. Actually saw Dr. Carbone yesterday afternoon and had a 16 [place] coud? catheter in place. Patient has intermittently been having bloody urine. Cath was working last night when he went to bed. This morning it is blocked and he is having significant discomfort. He is still on antibiotic. He is still on Coumadin until such time that he has been cleared for surgery in the near future. Related Data Home Medications Medication Instructions Recorded Confirmed warfarin 5 mg tablet 5 mg PO DAILY #90 tab-cap 11/20/19 10/03/20 diltiazem HCl 360 mg 360 mg PO DAILY #90 tab-cap 05/28/20 10/03/20 capsule,extended release 24 hr umeclidinium 62.5 mcg-vilanterol 1 inh INHALATION DAILY #60 ea 06/16/20 10/03/20 25 mcg/actuation powdr for inhalation bisoprolol fumarate 5 mg tablet 5 mg PO DAILY #90 tab 09/14/20 10/03/20 cephalexin 500 mg PO BID #14 cap 09/27/20 10/03/20 tamsulosin 0.4 mg capsule 0.8 mg PO HS #90 cap 09/28/20 10/03/20 Previous Rx's Medication Instructions Recorded warfarin 5 mg tablet 5 mg PO DAILY #90 tab-cap 11/20/19 diltiazem HCl 360 mg 360 mg PO DAILY #90 tab-cap 05/28/20 capsule,extended release 24 hr umeclidinium 62.5 mcg-vilanterol 1 inh INHALATION DAILY #60 ea 06/16/20 25 mcg/actuation powdr for inhalation bisoprolol fumarate 5 mg tablet 5 mg PO DAILY #90 tab 09/14/20 cephalexin 500 mg PO BID #14 cap 09/27/20 tamsulosin 0.4 mg capsule 0.8 mg PO HS #90 cap 09/28/20 Allergies Allergy/AdvReac Type Severity Reaction Status Date / Time metoprolol AdvReac Mild DIARRHEA Verified 10/03/20 05:20 General KELLI: 4 Review of Systems Narrative: As documented in HPI otherwise negative as below. Const: no fever, chills, weakness Resp: no cough, SOB, pleuritic pain CV: no CP, diaphoresis, edema, syncope GI: no nausea, vomiting, diarrhea Neuro: no headache, numbness, focal weakness, confusion PFSH Medical History Benign non-nodular prostatic hyperplasia with lower urinary tract symptoms (12/10/14) COPD (chronic obstructive pulmonary disease) Emphysema of lung Multiple thyroid nodules Paroxysmal atrial fibrillation POLST (Physician Orders for Life-Sustaining Treatment) SVT (supraventricular tachycardia) (02/27/15) Holter : multiple SVT/long duration/intol. 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 Paternal Grandfather No problems noted. 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 HEENT: NC/AT. Normal facial exam. Eyes: Normal conjunctiva and sclera. Neck: Supple. Trachea midline. Lungs: Normal respiratory effort. GI: Soft. Distended bladder in suprapubic area. Neuro: A+O x 3. Normal speech, mentation, gait. Cranial nerves II - XII grossly intact. No gross motor or sensory deficit. Skin: Warm and dry without rash.
[2020-10-03 05:15] VITALS: BP 149/51; PULSE 83; RESP 16; TEMP 36.3; O2SAT 99
[2020-10-03] MEDS: Lidocaine 2% Jelly 6 ML SYR (05:26)
== END 2020-10-03 05:50 | disposition home or self-care (01) ==
LOC: ER 05:41
PROVIDERS: Emergency Provider Emergency Medicine; PCP Family Medicine
DX: T83.091A Other mechanical complication of indwelling urethral catheter, initial encounter (principal); N40.3 Nodular prostate with lower urinary tract symptoms; R33.8 Other retention of urine; R31.9 Hematuria, unspecified; Z79.01 Long term (current) use of anticoagulants
CPT/HCPCS: 51703; 99283

== ENCOUNTER 2020-10-05 23:47 | Emergency (ER) | payer OTHER, SELFPAY ==
[2020-10-05 23:50] VITALS: TEMP 35.9
[2020-10-06] MEDS: Lidocaine 2% Jelly 6 ML SYR (00:12)
--- NOTE | 2020-10-06 00:31 | W.ED.GENAD ---
Discharge Plan Disposition Patient Disposition: HOME Condition: Good Discharge Details Clinical Impression: Walker catheter problem Primary Care Provider: Sole Carter ED Provider: Pardeep Hennessy Home Meds and New Rx's Prescriptions: Continued Anoro Ellipta 62.5-25 mcg/actuation blister with device 1 inh inhalation DAILY Qty: 60 RF: 3 tamsulosin 0.4 mg capsule 0.8 mg PO HS Qty: 90 RF: 4 warfarin 5 mg tablet 5 mg PO DAILY Qty: 90 RF: 6 diltiazem HCl 360 mg capsule,extended release 24hr 360 mg PO DAILY Qty: 90 RF: 4 bisoprolol fumarate 5 mg tablet 5 mg PO DAILY Qty: 90 RF: 4 Discharge Instructions Instructions: Walker Catheter Placement and Care (ED) Additional Instructions: If you have any questions or concerns with your Walker catheter or if it becomes clogged again please do not hesitate to call us or return to the ER for reassessment. If you notice any worsening of your symptoms, or any new symptoms such as vomiting, diarrhea, fever, chills, shortness of breath, chest pain, numbness, weakness, or fainting , please return immediately to the emergency department for reevaluation. Please follow up with your primary care provider as soon as possible for reassessment and reevaluation. As always, it was a pleasure participating in your medical care today. Referrals: Sole Carter MD [Primary Care Provider] - Medical Decision Making 80-year-old male with a past medical history of atrial fibrillation on Coumadin, and urinary retention requiring Walker catheter placement about a week ago presents today for evaluation of Walker catheter problem. Patient has had intermittent blood in his Walker catheter with subsequent clots. Unfortunately this evening he stopped producing urine through the Walker catheter, and noticed some urine and clot discharge around his urethra around the catheter. This caused pain and he came in for further assessment. No other complaints at this time. He has not changes Coumadin dose at all recently. He denies any lightheadedness. He is following up closely with urology Exam demonstrates Walker catheter is in place, small amount of bloody urine around the urethral meatus. Clots are present in Walker bag. We flushed the Walker catheter, and were able to extract clots. Walker freed well after that. No new clots. Performed education with family members at bedside for irrigation at home. Patient feels well. Will recommend continued close follow-up with urology on an outpatient basis. Vital signs are stable, no indication for blood work at this time. I have extensively reviewed the treatment plan and discharge instructions with the patient and their family. I have addressed all patient concerns at this time. The patient and family was made aware of what symptoms to monitor for that would warrant a return to the emergency department. Discussed the plan with the patient and family, they demonstrate verbal understanding and agreement with our assessment and plan at this time. The documentation in this chart was dictated using [employer] dictation software. Please excuse any dictation errors. HPI General Date/Time Provider Initiated Documentation: 10/06/20 00:05. HPI Narrative: 80-year-old male with a past medical history of atrial fibrillation on Coumadin, and urinary retention requiring Walker catheter placement about a week ago presents today for evaluation of Walker catheter problem. Patient has had intermittent blood in his Walker catheter with subsequent clots. Unfortunately this evening he stopped producing urine through the Walker catheter, and noticed some urine and clot discharge around his urethra around the catheter. This caused pain and he came in for further assessment. No other complaints at this time. He has not changes Coumadin dose at all recently. He denies any lightheadedness. He is following up closely with urology Related Data Home Medications Medication Instructions Recorded Confirmed warfarin 5 mg tablet 5 mg PO DAILY #90 tab-cap 11/20/19 10/06/20 diltiazem HCl 360 mg 360 mg PO DAILY #90 tab-cap 05/28/20 10/06/20 capsule,extended release 24 hr umeclidinium 62.5 mcg-vilanterol 1 inh INHALATION DAILY #60 ea 06/16/20 10/06/20 25 mcg/actuation powdr for inhalation bisoprolol fumarate 5 mg tablet 5 mg PO DAILY #90 tab 09/14/20 10/06/20 tamsulosin 0.4 mg capsule 0.8 mg PO HS #90 cap 09/28/20 10/06/20 Previous Rx's Medication Instructions Recorded warfarin 5 mg tablet 5 mg PO DAILY #90 tab-cap 11/20/19 diltiazem HCl 360 mg 360 mg PO DAILY #90 tab-cap 04/08/21 capsule,extended release 24 hr umeclidinium 62.5 mcg-vilanterol 1 inh INHALATION DAILY #60 ea 06/16/20 25 mcg/actuation powdr for inhalation bisoprolol fumarate 5 mg tablet 5 mg PO DAILY #90 tab 09/14/20 tamsulosin 0.4 mg capsule 0.8 mg PO HS #90 cap 09/28/20 Allergies Allergy/AdvReac Type Severity Reaction Status Date / Time metoprolol AdvReac Mild DIARRHEA Verified 10/06/20 00:11 General Stated Complaint: Urinary KELLI: 3 Review of Systems All systems reviewed & are unremarkable except as noted in HPI and below PFSH Medical History Benign non-nodular prostatic hyperplasia with lower urinary tract symptoms (12/10/14) COPD (chronic obstructive pulmonary disease) Emphysema of lung Multiple thyroid nodules Paroxysmal atrial fibrillation POLST (Physician Orders for Life-Sustaining Treatment) SVT (supraventricular tachycardia) (02/27/15) Holter : multiple SVT/long duration/intol. 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 Paternal Grandfather No problems noted. Social History Smoking/Tobacco Use Status: Current every day Tobacco Type: cigarettes Smoking risk assessment performed?: Yes Alcohol Intake: former Counseling given: No Drug use: Never Substance use type: does not use Household members: spouse Pets and animals: No Sexually active: No Do you think of yourself as: straight/heterosexual Current gender identity: male Evy/Yazidi: adventist Seatbelt use: always Helmet use: No Drive intox or ride w/intox semi driver: No Do you feel safe at home: Yes Do you feel safe in your relationship?: Yes Exam Narrative Exam Narrative: 1.Const: Well-nourished, Well-developed, appearing stated age 2.Eyes: PERRL, no conjunctival injection, and symmetrical lids. 3.ENT: Atraumatic external nose and ears. Moist MM. Neck: Symmetric, trachea midline, No thyromegaly. 4.CVS: +S1/S2, No murmurs or gallops. Peripheral pulses 2+ and equal in all extremities. Brisk capillary refill in all extremities. 5.RESP: Unlabored respiratory effort. Clear to auscultation bilaterally. No wheezes rales or rhonchi 6.GI: Soft, Nontender/Nondistended, No hepatosplenomegaly. No guarding or rebound. Walker catheter is in place, small amount of blood around the urethral meatus. Walker catheter bag demonstrates clots in it, and some red urine. No penile tenderness, no testicular tenderness on palpation 7.MSK: Normocephalic/Atraumatic, Extremities w/o deformity or ttp No cyanosis or clubbing, Normal movement of all extremities 8.Skin: Warm, Dry. No rashes or lesions. 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 Sensation grossly intact, no focal neurologic deficits. 10.Psych: (AAO) x3. Appropriate mood and affect Course Vital Signs Vital signs: Vital Signs Temperature 35.9 C L 10/05/20 23:50 Temperature 35.9 C L 10/05/20 23:50 Temperature Source Skin 10/05/20 23:50 Blood Pressure Position Sitting 10/05/20 23:50 Oxygen Delivery Method Room Air 10/05/20 23:50 Oxygen Flow Rate 0 10/05/20 23:50 Pain Level 2 10/05/20 23:50
== END 2020-10-06 00:38 | disposition home or self-care (01) ==
LOC: ER 10-06 01:00
PROVIDERS: Emergency Provider Student in an Organized Health Care Education/Training Program; PCP Family Medicine
DX: T83.098A Other mechanical complication of other urinary catheter, initial encounter (principal); R31.9 Hematuria, unspecified; R39.89 Other symptoms and signs involving the genitourinary system; Z79.01 Long term (current) use of anticoagulants
CPT/HCPCS: 99283

== ENCOUNTER → 2020-10-14 14:20 | Outpatient (BNVA) | payer OTHER, SELFPAY | PROVIDERS: PCP Family Medicine; Referring Provider Family Medicine; Visit Provider Nurse Practitioner Gerontology | DX: T83.098A Other mechanical complication of other urinary catheter, initial encounter (principal); R33.9 Retention of urine, unspecified; R31.9 Hematuria, unspecified | CPT/HCPCS: 51700; 99212 ==

== ENCOUNTER → 2020-10-14 14:20 | Outpatient (BNVA) | payer OTHER, SELFPAY | PROVIDERS: PCP Family Medicine; Referring Provider Family Medicine; Visit Provider Nurse Practitioner Gerontology | DX: T83.098A Other mechanical complication of other urinary catheter, initial encounter (principal); R33.9 Retention of urine, unspecified; R31.9 Hematuria, unspecified ==

== ENCOUNTER → 2020-10-15 14:46 | Outpatient (BNVA) | payer OTHER, SELFPAY | PROVIDERS: PCP Family Medicine; Referring Provider Family Medicine; Visit Provider Urology | DX: R33.8 Other retention of urine (principal); T83.9XXA Unspecified complication of genitourinary prosthetic device, implant and graft, initial encounter; Z46.6 Encounter for fitting and adjustment of urinary device | CPT/HCPCS: 51700; 99212 ==

== ENCOUNTER 2020-10-18 01:47 | Emergency (ER) | payer OTHER, SELFPAY ==
--- NOTE | 2020-10-18 01:49 | ED.GENADUL_ITS ---
Discharge Plan Disposition Patient Disposition: HOME Condition: Good Discharge Details Clinical Impression: Complication, blocked Walker catheter Primary Care Provider: Sole Carter ED Provider: Rafi Rowan [place] Meds and New Rx's Prescriptions: No Action Anoro Ellipta 62.5-25 mcg/actuation blister with device 1 inh inhalation DAILY Qty: 60 RF: 3 Myrbetriq 50 mg tablet extended release 24 hr 50 mg PO DAILY Qty: 90 RF: 4 warfarin 5 mg tablet 5 mg PO DAILY Qty: 90 RF: 6 diltiazem HCl 360 mg capsule,extended release 24hr 360 mg PO DAILY Qty: 90 RF: 4 bisoprolol fumarate 5 mg tablet 5 mg PO DAILY Qty: 90 RF: 4 Discharge Instructions Additional Instructions: No change in care plan. Stay off your anticoagulation as instructed by Dr. Carbone. Return to ED for fever, back pain, further catheter problems Medical Decision Making We will attempt to flush catheter clear. If unable to will place a new catheter. Continue current medical regimen in preparation for surgery on . Return to ED for fever, back pain, further catheter problems. Medical Records Medical records reviewed: Yes I reviewed the patient's medical records. HPI General Mode of arrival: ambulatory . Date/Time Provider Initiated Documentation: 10/18/20 01:48 . Limitations to Documentation: no limitations . Information obtained by: patient, RN notes reviewed and old records reviewed . HPI Narrative: Patient returns to ED with catheter blockage. He did see Dr. Carbone few days ago and his surgery has been moved up due to continued catheter problems. Patient has been having bloody urine. He has discontinued his anticoagulation in preparation for his surgery. He has been doing well otherwise. Catheter stopped draining this evening. Related Data Home Medications Medication Instructions Recorded Confirmed warfarin 5 mg tablet 5 mg PO DAILY #90 tab-cap 11/20/19 10/18/20 diltiazem HCl 360 mg 360 mg PO DAILY #90 tab-cap 05/28/20 10/06/20 capsule,extended release 24 hr umeclidinium 62.5 mcg-vilanterol 1 inh INHALATION DAILY #60 ea 06/16/20 10/18/20 25 mcg/actuation powdr for inhalation bisoprolol fumarate 5 mg tablet 5 mg PO DAILY #90 tab 09/14/20 10/06/20 mirabegron 50 mg tablet,extended 50 mg PO DAILY #90 tab-cap 10/15/20 10/18/20 release 24 hr Previous Rx's Medication Instructions Recorded warfarin 5 mg tablet 5 mg PO DAILY #90 tab-cap 11/20/19 diltiazem HCl 360 mg 360 mg PO DAILY #90 tab-cap 05/28/20 capsule,extended release 24 hr umeclidinium 62.5 mcg-vilanterol 1 inh INHALATION DAILY #60 ea 06/16/20 25 mcg/actuation powdr for inhalation bisoprolol fumarate 5 mg tablet 5 mg PO DAILY #90 tab 09/14/20 mirabegron 50 mg tablet,extended 50 mg PO DAILY #90 tab-cap 10/15/20 release 24 hr Allergies Allergy/AdvReac Type Severity Reaction Status Date / Time metoprolol AdvReac Mild DIARRHEA Verified 10/18/20 01:57 General KELLI: 3 Review of Systems Narrative: As documented in HPI otherwise negative as below. Const: no fever, chills, weakness Resp: no cough, SOB, pleuritic pain CV: no CP, diaphoresis, edema, syncope GI: no abdominal pain, nausea, vomiting, diarrhea Neuro: no headache, numbness, focal weakness, confusion PFSH Medical History Benign non-nodular prostatic hyperplasia with lower urinary tract symptoms (12/10/14) COPD (chronic obstructive pulmonary disease) Emphysema of lung Multiple thyroid nodules Paroxysmal atrial fibrillation POLST (Physician Orders for Life-Sustaining Treatment) SVT (supraventricular tachycardia) (02/27/15) Holter : multiple SVT/long duration/intol. 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 Paternal Grandfather No problems noted. 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 HEENT: NC/AT. Normal facial exam. Neck: Supple. Trachea midline. Lungs: Normal respiratory effort. Neuro: A+O x 3. Normal speech, mentation, gait. Cranial nerves II - XII grossly intact. No gross motor or sensory deficit. Ext: No C/C/E. Skin: Warm and dry.
[2020-10-18 01:53] VITALS: PULSE 75; RESP 18; TEMP 36.2; O2SAT 97
== END 2020-10-18 02:15 | disposition home or self-care (01) ==
LOC: ER 05:17
PROVIDERS: Emergency Provider Emergency Medicine; PCP Family Medicine
DX: T83.098A Other mechanical complication of other urinary catheter, initial encounter (principal)
CPT/HCPCS: 99281; 99282

== ENCOUNTER 2020-10-18 10:17 | Emergency (ER) | payer OTHER, SELFPAY ==
[2020-10-18 10:38] VITALS: BP 128/57; PULSE 70; TEMP 37.3; O2SAT 97
--- NOTE | 2020-10-18 11:00 | ED.GENADUL_ITS ---
Discharge Plan Disposition Patient Disposition: HOME Condition: Improving Discharge Details Clinical Impression: Complication, blocked Walker catheter, Hematuria, Walker catheter problem Primary Care Provider: Sole Carter ED Provider: Klarissa Rodriguez Home Meds and New Rx's Prescriptions: Continued Anoro Ellipta 62.5-25 mcg/actuation blister with device 1 inh inhalation DAILY Qty: 60 RF: 3 Myrbetriq 50 mg tablet extended release 24 hr 50 mg PO DAILY Qty: 90 RF: 4 warfarin 5 mg tablet 5 mg PO DAILY Qty: 90 RF: 6 diltiazem HCl 360 mg capsule,extended release 24hr 360 mg PO DAILY Qty: 90 RF: 4 bisoprolol fumarate 5 mg tablet 5 mg PO DAILY Qty: 90 RF: 4 Discharge Instructions Instructions: Walker Catheter Placement and Care (ED) Additional Instructions: Please continue with plan set forth by Dr. Carbone. Please encourage hydration. If you develop recurrence of your blocked catheter with diminished urine flow or increased discomfort once again, please attempt flushing as is instructed by nursing staff. Please not fill your bladder more than 100 cc of fluid. If this is unsuccessful, you have discomfort, fever/chills or other new/worsening symptoms please seek care urgently once again. Otherwise, please keep follow-up appointment with Dr. Carbone this week. Referrals: Fei Carbone MD [ [facility] STAFF PHYSICIAN] - Medical Decision Making Patient is a pleasant 80-year-old gentleman presenting today, coming by his , with chief complaint of clogged urinary catheter. Reviewed recent notes. Patient has seen him multiple times for this and is also being followed by Dr. Carbone. Plan is for the patient to have surgical intervention for his enlarged prostate on . Need to have the catheter in place until then. Patient was seen here around 1 AM this morning for similar symptoms. Catheter was able to be flushed and had return of flow of urine. He denies any fevers or chills. Stated this feels the same. Is endorsing some discomfort at the bladder and like to full bladder as well as penile discomfort. patient is anticoagulated, just recently stopped this in preparation for his upcoming surgical procedure. Have been having clot which were obstructing the flow of urine. On exam, patient appears frustrated. Appears uncomfortable but nontoxic. Vital signs are stable. He does have some bladder discomfort with palpation. No penile discharge, no bleeding. Patient has had some leakage around the catheter which is also been a chronic issue for him. Patient was flushed by nursing staff. >300cc of blood tinged urine. Patient reports that his symptoms have resolved, he is feeling improved and is requesting discharge. We will send home with supplies for to flush. She was taught how to do this by nursing staff. I advised not to fill over 100 cc into the bladder. Return precautions were discussed. They will keep your upcoming appointment with Dr. Carbone. All of their questions and concerns were addressed and they are in agreement with this plan. HPI General Mode of arrival: ambulatory . Date/Time Provider Initiated Documentation: 10/18/20 10:58 . Limitations to Documentation: no limitations . Information obtained by: patient, family, RN notes reviewed and old records reviewed . History of Present Illness 80 year old M presents to the emergency department with the chief complaint of blocked urinary catheter, described as severe and similar to prior episodes, with intensity rated at 10. Quality is described as aching, and is localized to the pelvis (over bladder) and genitals (tip of penis). Patient reports no radiation. Patient started experiencing this hour(s) and it has been constant. No relieving factors improve symptom(s), No exacerbating factors reported . Patient notes no other symptoms.. Patient did receive the following treatments prior to arrival, none Related Data Home Medications Medication Instructions Recorded Confirmed warfarin 5 mg tablet 5 mg PO DAILY #90 tab-cap 11/20/19 10/18/20 diltiazem HCl 360 mg 360 mg PO DAILY #90 tab-cap 05/28/20 10/06/20 capsule,extended release 24 hr umeclidinium 62.5 mcg-vilanterol 1 inh INHALATION DAILY #60 ea 06/16/20 10/18/20 25 mcg/actuation powdr for inhalation bisoprolol fumarate 5 mg tablet 5 mg PO DAILY #90 tab 09/14/20 10/06/20 mirabegron 50 mg tablet,extended 50 mg PO DAILY #90 tab-cap 10/15/20 10/18/20 release 24 hr Previous Rx's Medication Instructions Recorded warfarin 5 mg tablet 5 mg PO DAILY #90 tab-cap 11/20/19 diltiazem HCl 360 mg 360 mg PO DAILY #90 tab-cap 05/28/20 capsule,extended release 24 hr umeclidinium 62.5 mcg-vilanterol 1 inh INHALATION DAILY #60 ea 06/16/20 25 mcg/actuation powdr for inhalation bisoprolol fumarate 5 mg tablet 5 mg PO DAILY #90 tab 09/14/20 mirabegron 50 mg tablet,extended 50 mg PO DAILY #90 tab-cap 10/15/20 release 24 hr Allergies Allergy/AdvReac Type Severity Reaction Status Date / Time metoprolol AdvReac Mild DIARRHEA Verified 10/18/20 01:57 General Stated Complaint: Urinary KELLI: 3 Review of Systems Constitutional Constitutional: Reports as per HPI, Denies chills, Denies fever(s) and Denies poor appetite Gastrointestinal Gastrointestinal: Denies abdominal pain, Denies change in bowel habits, Denies nausea and Denies vomiting Genitourinary Genitourinary: Reports as per HPI Musculoskeletal Musculoskeletal: Reports as per HPI and Denies back pain Integumentary/Breasts Skin/Breast: Reports as per HPI and Denies rash [facility] Medical History Benign non-nodular prostatic hyperplasia with lower urinary tract symptoms (12/10/14) COPD (chronic obstructive pulmonary disease) Emphysema of lung Multiple thyroid nodules Paroxysmal atrial fibrillation POLST (Physician Orders for Life-Sustaining Treatment) SVT (supraventricular tachycardia) (02/27/15) Holter -2014: multiple SVT/long duration/intol. 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 Paternal Grandfather No problems noted. 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: No Do you feel safe at home: Yes Do you feel safe in your relationship?: Yes Exam Const General: cooperative, healthy appearing, uncomfortable, no acute distress, well developed and well groomed Nutritional Appearance: average body habitus and well nourished Orientation: alert and awake Resp Effort & Inspection: normal respiratory effort and no respiratory distress Cardio Rate: regular rate Rhythm: regular rhythm Heart Sounds: S2 normal GI Inspection: normal to inspection Palpation: soft, no hepatosplenomegaly, not firm, no guarding, not rigid and nontender Penis: normal penis (catheter appears well placed wth no discharge), no ecchymosis, not edematous, not erythematous, no masses and no swelling Meatus: meatus normal Scrotum: scrotum normal Back/Spine/Pelvis Back: no CVA tenderness Skin General skin exam: no rashes or lesions noted Trauma: no lacerations or abrasions Neuro General: patient alert and patient awake Cognition: normal cognition Speech: speech normal Gait: normal gait Psych Appearance: grossly normal and well kempt Mental Status: mental status grossly normal Speech and Movement: speech and movement normal Course Vital Signs Vital signs: Vital Signs Temperature 37.3 C 10/18/20 10:38 Pulse 70 10/18/20 10:38 Blood Pressure 128/57 L 10/18/20 10:38 Pulse Oximetry 97 10/18/20 10:38 Temperature 37.3 C 10/18/20 10:38 Temperature Source Temporal Artery Scan 10/18/20 10:38 Pulse 70 10/18/20 10:38 Blood Pressure 128/57 L 10/18/20 10:38 Blood Pressure Position Sitting 10/18/20 10:38 Pulse Oximetry 97 10/18/20 10:38 Oxygen Delivery Method Room Air 10/18/20 10:38 Oxygen Flow Rate 0 10/18/20 10:38 Pain Level 10 10/18/20 10:38
== END 2020-10-18 13:06 | disposition home or self-care (01) ==
PROVIDERS: Emergency Provider Physician Assistant; PCP Family Medicine
DX: T83.098A Other mechanical complication of other urinary catheter, initial encounter (principal); R31.9 Hematuria, unspecified
CPT/HCPCS: 99283; 99282

== ENCOUNTER 2020-10-18 23:10 | Emergency (ER) | payer OTHER, SELFPAY ==
[2020-10-18 23:30] VITALS: BP 104/45; PULSE 62; RESP 16; TEMP 36.6; O2SAT 99
--- NOTE | 2020-10-18 23:34 | ED.GENADUL_ITS ---
Discharge Plan Disposition Patient Disposition: HOME Condition: Stable Discharge Details Clinical Impression: Ballesteros catheter problem, Urinary tract infection Primary Care Provider: Sole Carter ED Provider: John Escobar Home Meds and New Rx's Prescriptions: New levofloxacin 750 mg tablet 750 mg PO DAILY Qty: 6 RF: 0 Continued Anoro Ellipta 62.5-25 mcg/actuation blister with device 1 inh inhalation DAILY Qty: 60 RF: 3 Myrbetriq 50 mg tablet extended release 24 hr 50 mg PO DAILY Qty: 90 RF: 4 diltiazem HCl 360 mg capsule,extended release 24hr 360 mg PO DAILY Qty: 90 RF: 4 bisoprolol fumarate 5 mg tablet 5 mg PO DAILY Qty: 90 RF: 4 No Action warfarin 5 mg tablet 5 mg PO DAILY Qty: 90 RF: 6 Discharge Instructions Instructions: Urinary Tract Infection in Men (ED) Additional Instructions: continue to hold your coumadin (warfarin) for your planned procedure this week and follow up with Dr. Carbone as scheduled if you develop fevers or severe abdomen or back pain return to the emergency department Medical Decision Making 80 yo male with hx of bph who has indwelling ballesteros and is scheduled for transurethral resection of the prostate this with Dr. Carbone, who is holding his coumadin for the procedure, comes in with leaking around his ballesteros. He was sitting in his chair and then noticed he was wet. He states his tried flushing the catheter unsuccesfully so he came here. He denies abdomen or back pain. He also has pain in the distal penis and has no erythema swelling or other visible abnormalities of the penis. He has very mildly bloody urine in the ballesteros bag. Will have nursing attempt to flush it and send ua. patient's ballesteros draining normally with very minimal blood, no clots, no pain. Urine is positive for nitrites which seems to be new for him so will start him on antibiotics. He will f/u with Dr. Carbone and return precautions given Differential Diagnosis Differential Diagnosis: ballesteros catheter malfunction, uti, bladder spasm Medical Records Medical records reviewed: Yes I reviewed the patient's medical records. Lab Data Lab results reviewed: Yes I reviewed the patient's lab results. HPI General Mode of arrival: ambulatory . Date/Time Provider Initiated Documentation: 10/18/20 23:18 . Limitations to Documentation: no limitations . Information obtained by: patient . History of Present Illness 80 year old M presents to the emergency department with the chief complaint of leaking around ballesteros prior to arrival, Patient started experiencing this hour(s) (2) and it has been intermittent. No relieving factors improve symptom(s), No exacerbating factors reported . Patient did receive the following treatments prior to arrival, none Related Data Home Medications Medication Instructions Recorded Confirmed warfarin 5 mg tablet 5 mg PO DAILY #90 tab-cap 11/20/19 10/18/20 diltiazem HCl 360 mg 360 mg PO DAILY #90 tab-cap 05/28/20 10/18/20 capsule,extended release 24 hr umeclidinium 62.5 mcg-vilanterol 1 inh INHALATION DAILY #60 ea 06/16/20 10/18/20 25 mcg/actuation powdr for inhalation bisoprolol fumarate 5 mg tablet 5 mg PO DAILY #90 tab 09/14/20 10/18/20 mirabegron 50 mg tablet,extended 50 mg PO DAILY #90 tab-cap 10/15/20 10/18/20 release 24 hr levofloxacin 750 mg PO DAILY #6 tab 10/19/20 Previous Rx's Medication Instructions Recorded warfarin 5 mg tablet 5 mg PO DAILY #90 tab-cap 11/20/19 diltiazem HCl 360 mg 360 mg PO DAILY #90 tab-cap 05/28/20 capsule,extended release 24 hr umeclidinium 62.5 mcg-vilanterol 1 inh INHALATION DAILY #60 ea 06/16/20 25 mcg/actuation powdr for inhalation bisoprolol fumarate 5 mg tablet 5 mg PO DAILY #90 tab 09/14/20 mirabegron 50 mg tablet,extended 50 mg PO DAILY #90 tab-cap 10/15/20 release 24 hr levofloxacin 750 mg PO DAILY #6 tab 10/19/20 Allergies Allergy/AdvReac Type Severity Reaction Status Date / Time metoprolol AdvReac Mild DIARRHEA Verified 10/18/20 23:39 General KELLI: 3 Review of Systems All systems reviewed & are unremarkable except as noted in HPI and below Constitutional Constitutional: Denies chills, Denies fever(s) and Denies weakness Cardiovascular Cardiovascular: Denies chest pain and Denies dyspnea Respiratory Respiratory: Denies cough and Denies dyspnea Gastrointestinal Gastrointestinal: Denies abdominal pain, Denies nausea and Denies vomiting Musculoskeletal Musculoskeletal: Denies joint swelling Neurologic Neurologic: Denies weakness Psychiatric Psychiatric: Denies depression [facility] Medical History Benign non-nodular prostatic hyperplasia with lower urinary tract symptoms (12/10/14) COPD (chronic obstructive pulmonary disease) Emphysema of lung Multiple thyroid nodules Paroxysmal atrial fibrillation POLST (Physician Orders for Life-Sustaining Treatment) SVT (supraventricular tachycardia) (02/27/15) Holter : multiple SVT/long duration/intol. 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 Paternal Grandfather No problems noted. 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 Do you feel safe at home: Yes Do you feel safe in your relationship?: Yes Exam Const General: no acute distress Orientation: alert HENMT Head: normal to inspection Ears: external ears normal General nose exam: external nose normal Mouth: moist mucous membranes Eyes General: appearance normal, both eyes and all related structures Neck Neck: normal visual inspection Resp Effort & Inspection: normal respiratory effort and able to speak in complete sentences Cardio Rate: regular rate GI Palpation: soft and nontender Penis: not edematous and not erythematous Skin General skin exam: no rashes or lesions noted Neuro General: patient alert and patient oriented x3 Extrem General: normal to inspection Psych Mental Status: mental status grossly normal
[2020-10-18] MEDS: Lidocaine 2% Jelly 6 ML SYR (23:52)
[2020-10-19 00:44] LABS: Bacteria Few HPF (Negative); Bilirubin Negative (Negative); Blood Large (Negative); C & S Indicated? C&S Done As Ordered; Casts Negative LPF (Negative); Clarity Sl Cloudy (Clear); Crystals Negative HPF (Negative); Epithelial Cells Few HPF (Negative); Glucose Negative (Negative); Ketones Negative (Negative); Leukocyte Esterase Moderate (Negative); Mucus Negative (Negative); Nitrite Positive (Negative); Specific Gravity 1.015 (1.005-1.025); Urobilinogen 0.2 EU/dL (Up TO 0.2)
[2020-10-19] MEDS: levoFLOXacin 500 MG, levoFLOXacin 250 MG 750 MG PO (00:52)
== END 2020-10-19 01:00 | disposition home or self-care (01) ==
PROVIDERS: Emergency Provider Emergency Medicine; PCP Family Medicine
DX: T83.091A Other mechanical complication of indwelling urethral catheter, initial encounter (principal); N39.0 Urinary tract infection, site not specified; B96.89 Other specified bacterial agents as the cause of diseases classified elsewhere
CPT/HCPCS: 99283; 81003; 81015; 87086

== ENCOUNTER 2020-10-20 02:21 | Outpatient (CLI) | payer OTHER, SELFPAY ==
[2020-10-20 13:53] LABS: Source Nasal/Nares
[2020-10-20 15:59] LABS: COVID-19 PCR Negative (Negative)
== END 2020-10-20 02:22 | disposition home or self-care (01) ==
PROVIDERS: PCP Family Medicine; Visit Provider Urology
DX: Z20.822 Contact with and (suspected) exposure to COVID-19 (principal); Z01.818 Encounter for other preprocedural examination
CPT/HCPCS: 87635

== ENCOUNTER 2020-10-21 02:41 | Outpatient (CLI) | payer OTHER, SELFPAY ==
[2020-10-21 14:50] LABS: INR 1.2 (0.9-1.1); Prothrombin Time 12.3 sec (9.3-11.0)
== END 2020-10-21 02:42 | disposition home or self-care (01) ==
PROVIDERS: PCP Family Medicine; Visit Provider Family Medicine
DX: I48.0 Paroxysmal atrial fibrillation (principal); Z79.01 Long term (current) use of anticoagulants
CPT/HCPCS: 36415; 85610

== ENCOUNTER 2020-10-22 07:16 | Inpatient (IN) | payer OTHER, SELFPAY ==
[2020-10-22] VITALS (14 sets, daily range): BP systolic 91–139; BP diastolic 29–56; PULSE 54–68; RESP 12–18; TEMP 35.5–36.6; O2SAT 93–100; BMI 18.4
--- NOTE | 2020-10-22 06:27 | W.ANESPRE ---
General Info Date of Service Date Performed: 10/22/20 Height: 5 ft 10 in Weight: 58.3 kg Body Mass Index (BMI): 18.4 Surgical Procedure: Operation Date: 10/22/20 09:10 Proposed Procedures Side Surgeon p Transurethral Resection Prostate Fei Carbone MD Meds Allergies and Home Medications Allergies Allergy/AdvReac Type Severity Reaction Status Date / Time metoprolol AdvReac Mild DIARRHEA Verified 10/22/20 07:40 Home Medication Medication Instructions Recorded warfarin 5 mg tablet 5 mg PO DAILY #90 tab-cap 11/20/19 diltiazem HCl 360 mg 360 mg PO DAILY #90 tab-cap 05/28/20 capsule,extended release 24 hr bisoprolol fumarate 5 mg tablet 5 mg PO DAILY #90 tab 09/14/20 mirabegron 50 mg tablet,extended 50 mg PO DAILY #90 tab-cap 10/15/20 release 24 hr levofloxacin 750 mg PO DAILY #6 tab 10/19/20 umeclidinium 62.5 mcg-vilanterol 1 inh INHALATION DAILY #60 ea 10/21/20 25 mcg/actuation powdr for inhalation lisinopril 2.5 mg PO DAILY 10/22/20 Current Visit Medications: Current Medications Generic Name Dose Route Start Last Admin Trade Name Freq PRN Reason Stop Dose Admin Ringer's Solution 1,000 mls @ 80 mls/hr 10/22/20 06:00 IV 11/20/20 23:59 INFUSION MIKAELA Cefazolin Sodium/Dextrose 1 gm in 50 mls @ 100 mls/hr 10/22/20 06:00 Ancef Duplex IVPB 10/22/20 23:59 PREOP MIKAELA IV Miscellaneous Supplies 1 each 10/22/20 06:00 Iv Access IV 11/20/20 23:59 DIRECTED MIKAELA Sodium Chloride 0 ml 10/22/20 06:00 Normal Saline Flush 10 Ml Syr IV 11/20/20 23:59 PRN PRN Sodium Chloride 0 ml 10/22/20 06:00 Normal Saline 10 Ml Vial IJ 11/20/20 23:59 DIRECTED PRN Sterile Water 0 ml 10/22/20 06:00 Water,Injection,Sterile 10 Ml Vial IJ 11/20/20 23:59 DIRECTED PRN PFSH Active Problems Active Problems: Problem Status Onset Code Urinary tract infection N39.0 Walker catheter problem T83.9XXA Acute urinary retention R33.8 Complication, blocked Walker catheter T83.091A Hematuria R31.9 Multiple thyroid nodules E04.2 COPD (chronic obstructive pulmonary disease) J44.9 Paroxysmal atrial fibrillation I48.0 POLST (Physician Orders for Life-Sustaining Treatment) Z78.9 Chronic anticoagulation Z79.01 Unspecified atrial flutter I48.92 Benign non-nodular prostatic hyperplasia with lower urinary tract symptoms 12/10/14 N40.1 Elevated PSA 07/19/16 R97.20 SVT (supraventricular tachycardia) 02/27/15 I47.1 Emphysema of lung J43.9 Medical History Medical History Benign non-nodular prostatic hyperplasia with lower urinary tract symptoms (12/10/14) COPD (chronic obstructive pulmonary disease) Emphysema of lung Multiple thyroid nodules Paroxysmal atrial fibrillation POLST (Physician Orders for Life-Sustaining Treatment) SVT (supraventricular tachycardia) (02/27/15) Holter : multiple SVT/long duration/intol. 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) Tobacco Smoking/Tobacco Use Status: Current every day Tobacco Type: cigarettes Smoking cigarettes per day: 5 Passive smoking exposure: Yes Alcohol Alcohol Intake: never Counseling given: No Substance Use Substance use: Never Substance use type: does not use Vital Signs and Lab Results Vital Signs Most Recent Vital Signs in EMR: Temp Pulse Resp BP Pulse Ox 36.5 C 68 18 96/47 L 98 10/22/20 07:35 10/22/20 07:35 10/22/20 07:35 10/22/20 07:35 10/22/20 07:35 Lab Results Blood Type / Crossmatch: No Data to Display Complete Blood Count: White Blood Count 13.70 10^3/uL (4.4-10.8) H 09/25/20 18:30 09/25/20 Red Blood Count 4.05 10^6/uL (4.36-5.78) L 09/25/20 18:30 09/25/20 Hemoglobin 11.9 g/dL (13.5-17.5) L 09/25/20 18:30 09/25/20 Hematocrit 36.2 % (40.0-50.0) L 09/25/20 18:30 09/25/20 Platelet Count 235 10^3/uL (130-400) 09/25/20 18:30 09/25/20 Complete Metabolic Panel: Sodium Level 144 mmol/L (136-145) 09/25/20 18:30 09/25/20 Potassium Level 4.2 mmol/L (3.5-5.1) 09/25/20 18:30 09/25/20 Chloride Level 108 mmol/L (98-107) H 09/25/20 18:30 09/25/20 Carbon Dioxide Level 26.3 mmol/L (21.0-32.0) 09/25/20 18:30 09/25/20 Blood Urea Nitrogen 25 mg/dL (7-18) H 09/25/20 18:30 09/25/20 Creatinine 1.5 mg/dL (0.70-1.30) H 09/25/20 18:30 09/25/20 Estimated GFR/1.73 m2 45.26 (mL/min/1.73m2) 09/25/20 18:30 09/25/20 Calcium Level 9.3 mg/dL (8.5-10.1) 09/25/20 18:09/25/20 Albumin 3.3 g/dL (3.4-5.0) L 09/25/20 18:30 09/25/20 Glucose Level 137 mg/dL (74-106) H 09/25/20 18:30 09/25/20 Liver Function Panel: Alanine Aminotransferase (ALT/SGPT) 18 U/L (16-63) 09/25/20 18:30 09/25/20 Aspartate Amino Transf (AST/SGOT) 22 U/L (15-37) 09/25/20 18:30 09/25/20 Coagulation Panel: INR International Normalized Ratio 1.2 (0.9-1.1) H 10/21/20 09:50 10/21/20 Prothrombin Time 12.3 sec (9.3-11.0) H 10/21/20 09:50 10/21/20 Cardiac Panel: No Data to Display Arterial Blood Gas: No Data to Display Venous Blood Gas: No Data to Display Pancreas Panel: No Data to Display Thyroid Panel: No Data to Display Infectious Disease: Coronavirus (COVID-19)(PCR) Negative (Negative) 10/20/20 11:18 10/20/20 Coronavirus 2019 Source Nasal/Nares 10/20/20 11:18 10/20/20 Blood Cultures: No Data to Display Toxicology Panel: No Data to Display Imaging and Studies Imaging and Studies Stress Test Summary: 11/06: Myocardial perfusion imaging: There is a small sized, moderately intense, predominantly reversible defect involving the apical wall(s). This suggests small ischemia in the distribution of the left anterior descending coronary artery. Overall ischemia: small. 2. The calculated left ventricular ejection fraction after stress: 22%. Diffuse left ventricular regional motion abnormalities. Atrial fibrillation may make gated images unreliable. Echocardiogram Summary: 10/14/16:1. Left ventricle: Systolic function was mildly reduced. The estimated ejection fraction was 45-50%. Diffuse hypokinesis. 2. Mitral valve: There was mild regurgitation. 3. Left atrium: The atrium was severely dilated. 4. Right ventricle: The cavity size was normal. Wall thickness was normal. Systolic function was normal. 5. Right atrium: The atrium was severely dilated. 6. Atrial septum: No defect or patent foramen ovale was identified. 7. Tricuspid valve: There was moderate regurgitation. 8. Pulmonary arteries: Pulmonary systolic pressure was in the range of 35mm Hg to 45mm Hg. 9. Inferior vena cava: The vessel was normal in size. The respirophasic diameter changes were in the normal range (greater than or equal to 50%), consistent with normal central venous pressure. 10. Pericardium, extracardiac: A small to moderate, free-flowing pericardial effusion was identified circumferential to the heart. There was no evidence of hemodynamic compromise. Features were not consistent with tamponade physiology. Pulmonary Function Summary: 10/06:Severe obstructive airways disease with significant bronchodilator response. Anesthesia Assessment and Plan Anesthesia History Personal History: No History of Anesthesia Complications Family History: No Family History of Anesthesia Complications Exercise Tolerance Exercise Tolerance: Metabolic Equivalents<4 Cardiac & Pulmonary Exam Cardiac Exam: Heart Murmur Present Pulmonary Exam: Clear Bilateral Breath Sounds Airway Exam Known Difficult Airway: No Mallampati Class: 3 Mouth Opening: Normal (> 3cm) Thyromental Distance: Greater than 3 cm Neck Range of Motion: Limited ROM Neck Circumference: Normal Teeth Condition: Removable Dentures/Plates Lower and Edentulous ASA Classification ASA Score: ASA 4 Emergency Case?: No NPO Status NPO Status: NPO Clears >2 hours, Solids >8 hours Anesthesia Plan Resuscitation Status: Full Code Anesthesia Technique: General Anesthesia Airway Planned: LMA Monitors Used: Standard Monitors and Arterial Line Preoperative Comments:: 80 yo male for TURP due to inability urinate, has freq caths which keep obstructing and are requiring frequent changes. sig pmhx for afib (on warfarin), COPD/emphysema, thyroid nodules. A conversation was had in regards to his heart (EF 22% with reversible ischemia on his stress) and lungs (severe COPD) and that he is high risk for post operative complications. Risks, benefits, and alternatives discussed, pt wants a general anesthetic and does not want a spinal despite the increased risk. A yvette discussion was had in regards to his risk of general anesthesia (significant cardiac and pulmonary complications up to and including ), he would still like to proceed in that direction. he would like to be a full code, but if his outcome looks poor to no be overly heroic.
[2020-10-22] MEDS: Lactated Ringers 1,000 ML 80 ML IV ×2 (08:02→14:30)
--- NOTE | 2020-10-22 09:33 | W.PM.HP.N ---
Date of service: 10/22/20 Time of Service: 09:33 Assessment and Plan Assessment and plan (1) Acute urinary retention: Status: Acute Assessment and plan: He has failed maximal medical therapy. He will present for cystoscopy/TURP/vaporization of his prostate. We will plan to admit him after the procedure for continuous bladder irrigation. History of Present Illness History of Present Illness Chief Complaint: Urinary retention Narrative: 80-year-old gentleman who has a long history of lower urinary tract symptoms., He has been treated with alpha blockers as well as bladder relaxers. He has developed urinary retention and has failed maximal medical therapy. His initial Walker catheter was placed into the prostatic urethra and the balloon was inflated. This resulted in some hematuria and clot retention. He has required multiple catheters and has had bladder spasms and catheter occlusions. He has failed multiple voiding trials. He presents now for transurethral resection of his prostate. He has atrial fibrillation and is chronically on anticoagulants. He has stopped his coumadin prior to this surgery. His INR is now 1.2. He has had multiple urine culture that show gram positive and gram negative ryan only. Review of Systems Narrative: No fevers or chills No vision change or dysphasia Hx thyroid nodules. No diabetes Chronic cough and SOB with exertion. No hemoptysis Chronic A fib. No chest pain No nausea, vomiting, hepatitis, ulcers, jaundice No seizures, strokes or peripheral neuropathy On coumadin chronically. No anemia No gout [facility] Medical History Benign non-nodular prostatic hyperplasia with lower urinary tract symptoms (12/10/14) COPD (chronic obstructive pulmonary disease) Emphysema of lung Multiple thyroid nodules Paroxysmal atrial fibrillation POLST (Physician Orders for Life-Sustaining Treatment) SVT (supraventricular tachycardia) (02/27/15) Holter : multiple SVT/long duration/intol. 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 Paternal Grandfather No problems noted. 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 Do you feel safe at home: Yes Do you feel safe in your relationship?: Yes Meds Allergies and Home Medications Allergies Allergy/AdvReac Type Severity Reaction Status Date / Time metoprolol AdvReac Mild DIARRHEA Verified 10/22/20 07:40 Home Medications Medication Instructions Recorded Confirmed Type warfarin 5 mg tablet 5 mg PO DAILY #90 tab-cap 11/20/19 10/22/20 Rx diltiazem HCl 360 mg 360 mg PO DAILY #90 tab-cap 05/28/20 10/22/20 Rx capsule,extended release 24 hr bisoprolol fumarate 5 mg tablet 5 mg PO DAILY #90 tab 09/14/20 10/22/20 Rx mirabegron 50 mg tablet,extended 50 mg PO DAILY #90 tab-cap 10/15/20 10/22/20 Rx release 24 hr levofloxacin 750 mg PO DAILY #6 tab 10/19/20 10/22/20 Rx umeclidinium 62.5 mcg-vilanterol 1 inh INHALATION DAILY #60 ea 10/21/20 10/22/20 Rx 25 mcg/actuation powdr for inhalation lisinopril 2.5 mg PO DAILY 10/22/20 10/22/20 History Exam Const General: cooperative Neck Neck: supple Resp Effort & Inspection: normal respiratory effort Auscultation: clear to auscultation bilaterally Cardio Rate: regular rate Rhythm: regular rhythm GI Palpation: soft and no masses Neuro General: patient alert, patient awake and patient oriented x3 Results Last Vital Signs Temp 36.5 C 10/22/20 07:35 Pulse 68 10/22/20 07:35 Resp 18 10/22/20 07:35 BP 96/47 L 10/22/20 07:35 Pulse Ox 98 10/22/20 07:35
--- NOTE | 2020-10-22 09:54 | DI.US_ITS ---
Exam(s) US EXTREMITY VENOUS BI EXAM: US EXTREMITY VENOUS BI CLINICAL HISTORY: B/L lower extremity edema, ? DVT,R60.0. TECHNIQUE: Bilateral lower extremity venous ultrasound performed using grayscale, color-flow, and sp ectral Doppler analysis. COMPARISON: No exams were available for comparison FINDINGS: The bilateral common femoral, femoral and popliteal veins demonstrate normal compressibility, augment ation, and color Doppler. The posterior tibial veins are patent. Saphenofemoral junction free of thr ombus. IMPRESSION: Right: Negative for DVT Left: Negative for DVT DATA REPOSITORY:
[2020-10-22] MEDS: Lidocaine 2% Jelly 6 ML SYR (11:09)
--- NOTE | 2020-10-22 11:24 | W.ANESVAS ---
Arterial Line Placement Date Performed: 10/22/20 Procedure Time: 10:36 Procedure Location: Operating Room Requesting Provider: Fei Carbone Timeout Performed: Yes Sedation Given (Indicate Dose Given): Other: Medication/Route/Dose:: Pt placed under general anesthesia Patient Mental Status: Sedated or Ventilated without meaningful communication Sterility: Hand Hygiene, Surgical Cap, Surgical Mask, Sterile Gloves and Chlorhexidine Laterality: Left Insertion Site: Radial Arterial Line Catheter: 20G Arrow Arterial Line Procedure: Vessel accessed with needle, Guidewire placed with ease, Catheter placed without resistance and Guidewire removed Dressing: Tegaderm Applied Ultrasound: Sterile probe cover and gel used Ultrasound Image Saved?: Yes Number of Attempts (See previous attempts in note section): 1 Procedure Tolerated: No Complications and Patient tolerated well Procedure Outcome: Successful Performed By: Gabriella Rubin Supervised By: Tian Joiner
--- NOTE | 2020-10-22 12:02 | PROST_PTH ---
PATIENT: Chris Phan LOC: U#:[id number] AGE/SX: 80/M ROOM: MS.205 RE10/22/[address]: Fei Carbone MD : 1940 BED: A DIS: 10/23/2020 SPEC #: [id number] RECD: 10/22/20 13:09 STATUS: MADELIN REQ #: [id number] W[place]ON: 10/22/20 12:[address]: Fei Carbone DEPT: Surgical Specimen RECD BY: Marilu Lopez ENTERED: 10/22/20 13:10 SP TYPE: PROST OTHR DR: Sole Carter MD Tissues: 1 - PROSTATE CURRETTINGS Procedures: GROSS AND MICRO LEVEL 4 Comments: [id number]
--- NOTE | 2020-10-22 12:11 | W.PM.OP ---
Date of service: 10/22/20 Time of Service: 12:11 Operative Note Operative Note DATE OF PROCEDURE: 10/22/20 PRE-OP DIAGNOSIS: Urinary retention POST-OP DIAGNOSIS: same PROCEDURE: Cystoscopy with TURP SURGEON: Fei Carbone ANESTHESIA TYPE: General LMA/ETT Refer to Anesthesia Record ESTIMATED BLOOD LOSS: 200 PATHOLOGY: other (prostate tissue) COMPLICATIONS: None Patient was transported to: PACU Patient's condition: stable Implants: 22 Vietnamese ballesteros with 30 cc sterile water in balloon Indications: This is a 80-year-old gentleman who has a history of lower urinary tract symptoms. He developed urinary retention and failed multiple voiding trials in spite of maximal medical therapy. He presents now for transurethral resection of the prostate t Findings: Diffusely enlarged prostate Procedure Description: The patient was brought to the operating room on 10/22/2020. After successful induction of general anesthesia, he was placed in the dorsal lithotomy position. His indwelling catheter was removed. He was given preoperative IV antibiotics. 2% Xylocaine jelly was then instilled into the urethra. A 22 Vietnamese rigid cystoscope was passed through the urethra into the bladder. The urethra and bladder were inspected with a 30 degree lens. The pendulous, bulbar and membranous urethra's appeared normal with no strictures. The prostatic urethra showed trilobar enlargement with a fairly prominent median lobe. The bladder was trabeculated with no evidence of tumor or stone. The cystoscope was withdrawn and a 24 Vietnamese resectoscope sheath was passed through the urethra into the bladder. Transurethral resection of the prostate was then performed using an [employer] resectoscope. We used bipolar cautery. All resected tissue was evacuated and sent to pathology for permanent section. We began by resecting the median lobe and followed up by resecting the prostate tissue from the bladder neck out to the verumontanum. We then switched to the plasma button and vaporized the remaining prostate tissue down to the prostatic capsule. At the completion of the procedure, the prostatic urethra appeared open. No arterial bleeding was seen. We filled the bladder with irrigation and remove the resectoscope. We then passed a 22 Vietnamese hematuria catheter through the urethra into the bladder. We inflated the catheter balloon with 30 cc of sterile water. Continuous bladder irrigation with saline was begun. We hand irrigated the catheter under traction until the irrigant became clear. He tolerated this procedure well with no complications.
[2020-10-22] MEDS: fentaNYL 100 MCG/2 ML VIAL IVP ×2 (12:45→12:52)
[2020-10-22] MEDS: HYDROmorphone 2 MG/ML VIAL IVP (13:05)
[2020-10-22] MEDS: ACETAMINOPHEN 1,000 MG/100 ML BTL 400 MG IVPB (13:15)
[2020-10-22] MEDS: ceFAZolin 1 GM/50 ML BAG IVPB ×3 (16:03→16:06)
[2020-10-22] MEDS: Docusate Sodium 100 MG CAP PO (20:06)
[2020-10-23 00:12] VITALS: BP 91/50; PULSE 78; RESP 18; TEMP 37.3; O2SAT 95
[2020-10-23] MEDS: ceFAZolin 1 GM/50 ML BAG IVPB (00:30)
[2020-10-23 04:03] VITALS: BP 100/49; PULSE 83; RESP 18; TEMP 37.1; O2SAT 96
[2020-10-23 06:55] LABS: HCT 24.6 % (40.0-50.0); MCH 29.9 pg (27.0-33.0); MCHC 32.5 % (32.0-36.0); MCV 91.8 fL (80-95); MPV 8.6 fL (8.0-11.0); Platelet Count 235 10^3/uL (130-400); RBC 2.68 10^6/uL (4.36-5.78); RDW 13.3 % (11.8-14.1); RDW-SD 45.1 fL; WBC 9.02 10^3/uL (4.4-10.8)
[2020-10-23 07:22] VITALS: BP 100/48; PULSE 87; RESP 16; TEMP 37.2; O2SAT 95
[2020-10-23 07:23] LABS: Anion Gap 7.3 mmol/L (3-11); BUN 10 mg/dL (7-18); CO2 27.7 mmol/L (21.0-32.0); CREATININE 1.1 mg/dL (0.70-1.30); Chloride 108 mmol/L (98-107); Glucose 104 mg/dL (74-106); Potassium 4.4 mmol/L (3.5-5.1); Sodium 143 mmol/L (136-145)
--- NOTE | 2020-10-23 07:29 | W.PM.PROGNOT ---
Date of Service Date of service: 10/23/20 Time of Service: 07:29 Assessment and Plan Assessment and plan (1) Acute urinary retention: Status: Acute Assessment and plan: We will sinew his bladder irrigation this morning. As long as his urine remains transparent, he can be discharged later today with his catheter in place. He will follow up with me early next week for a voiding trial. He did require pressors for his blood pressure in the postoperative time, so we will hold his morning dose of lisinopril and beta-dae. He can restart both of those medications tomorrow. Subjective Subjective Interval history since last seen: He did not develop clot retention overnight. He is tolerating oral intake. 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
--- NOTE | 2020-10-23 07:31 | W.PM.DS.N ---
Date of service: 10/23/20 Time of Service: 07:32 DS: Diagnosis Discharge Diagnosis (1) Acute urinary retention: Status: Acute Discharge Plan Disposition Patient Disposition: HOME Condition: Stable Discharge Details Reason For Visit: Urinary Retention Admit Date/Time: 10/22/20 07:16 Admit Provider: Fei Carbone Attending Provider: Fei Carbone [facility] Hospital Course: The patient was admitted and taken to the operating room on 10/23/2020 where he underwent cystoscopy with transurethral resection of his prostate. His blood pressure was a bit difficult to maintain and he required some IV pressors in the operating room and recovery room. He was maintained with continuous bladder irrigation overnight. By postoperative day #1, his irrigant was crystal clear, so we discontinued the irrigation and have made arrangements for him to be discharged with his catheter in place. He will have a voiding trial done in my office early next week. His blood pressure was acceptable, but was on the lower end of the normal scale, so we held his dose of lisinopril and beta-dae on postoperative day #1. His postoperative hemoglobin was a bit low as expected, but he did not meet our criteria for requiring blood transfusion. Home Meds and New Rx's Prescriptions: No Action Myrbetriq 50 mg tablet extended release 24 hr 50 mg PO DAILY Qty: 90 RF: 4 warfarin 5 mg tablet 5 mg PO DAILY Qty: 90 RF: 6 diltiazem HCl 360 mg capsule,extended release 24hr 360 mg PO DAILY Qty: 90 RF: 4 bisoprolol fumarate 5 mg tablet 5 mg PO DAILY Qty: 90 RF: 4 Anoro Ellipta 62.5-25 mcg/actuation blister with device 1 inh inhalation DAILY Qty: 60 RF: 3 lisinopril 2.5 mg tablet 2.5 mg PO DAILY RF: 0 levofloxacin 750 mg tablet 750 mg PO DAILY Qty: 6 RF: 0 Discharge Instructions Additional Instructions: He may restart his warfarin on 10/24/2020. He is to resume all of his other home medications. He will follow-up in my office early next week for voiding trial/catheter removal He will need a follow-up appointment with me in about 2 weeks to review his surgical pathology. Activity:: No lifting over 10 po Equipment/Supplies:: Walker to leg bag Diet:: As Tolerated Discharge Orders Discharge Orders: Discharge Order (Routine); Ordered 10/23/20 Ordered By: Fei Carbone DS: Summary Time Spent with Patient providing and/or coordinating discharge services: Less than 30 minutes Status at Discharge Functional status at discharge: independent ambulation Overall status at discharge: patient is back to baseline Mental Status: mental status grossly normal Speech and Movement: speech and movement normal Mood: congruent mood Affect: normal affect Exam Narrative Exam Narrative: At the time of discharge, he looks well. He does not appear septic or toxic His vital signs are documented elsewhere He is not short of breath at rest. His abdomen is soft with no guarding or rebound tenderness His Walker catheter is draining clear urine He is awake and alert Psych Mental Status: mental status grossly normal Speech and Movement: speech and movement normal Mood: congruent mood Affect: normal affect DS: Data Vitals/I&O Vitals and I&O: Vital Signs Temperature 37.2 C 10/23/20 07:22 Temperature Source Skin 10/23/20 07:22 Pulse 87 10/23/20 07:22 Pulse Rhythm Regular 10/22/20 19:50 Respiratory Rate 16 10/23/20 07:22 Respiratory Effort Non-Labored 10/23/20 06:36 Respiratory Depth Normal 10/23/20 06:36 Respiratory Pattern Normal 10/23/20 06:36 Blood Pressure 100/48 L 10/23/20 07:22 Pulse Oximetry 95 10/23/20 07:22 Respiratory End-tidal CO2 36 10/22/20 12:58 Oxygen Delivery Method Room Air 10/23/20 07:22 Oxygen Flow Rate 0 10/23/20 07:22 Pain Level 0 10/23/20 04:03 Comment 10/23/20 07:22 Intake & Output 10/22/20 10/22/20 10/23/20 11:59 23:59 11:59 Intake Total 1229.000 / 1229.000 200 / 200 Output Total 98643 / 19627 23752 / 83455 Balance -29519.000 / -68555.000 -89643 / -76992 Weight 57.8 kg Intake: IV 1229.000 / 1229.000 Oral 200 / 200 Output: Urine 42702 / 23659 45793 / 41721 Other: Urine Color Pale Pale Pale Nord Urine Appearance Hematuria Sediment Hematuria Comment three 3L bags infused at this time Infused 3 3L NS bags into bladder Emesis Description None Data Completed and Pending Labs on day of discharge: Labs from last 24 hours 10/23/20 10/23/20 06:10 06:10 WBC 9.02 RBC 2.68 L Hgb 8.0 L Hct 24.6 L MCV 91.8 MCH 29.9 MCHC 32.5 RDW 13.3 Plt Count 235 MPV 8.6 Sodium 143 Potassium 4.4 Chloride 108 H Carbon Dioxide 27.7 Anion Gap 7.3 BUN 10 Creatinine 1.1 Estimated GFR/1.73 m2 >= 60.00 Glucose 104 Calcium 8.0 L [facility] Medical History Benign non-nodular prostatic hyperplasia with lower urinary tract symptoms (12/10/14) COPD (chronic obstructive pulmonary disease) Emphysema of lung Multiple thyroid nodules Paroxysmal atrial fibrillation POLST (Physician Orders for Life-Sustaining Treatment) SVT (supraventricular tachycardia) (02/27/15) Holter : multiple SVT/long duration/intol. Metoprolol/Cardizem started//Holter possible A.Fib: repeat holter / Unspecified atrial flutter 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 Paternal Grandfather No problems noted. Social History Smoking/Tobacco Use Status: Current every day Tobacco Type: cigarettes Smoking risk assessment performed?: Yes Alcohol Intake: never Counseling given: No Drug use: Never Substance use type: does not use Household members: spouse Pets and animals: No Sexually active: No Do you think of yourself as: straight/heterosexual Current gender identity: male Evy/Jain: oriental orthodox Seatbelt use: always Helmet use: No Drive intox or ride w/intox certified driver examiner: No Do you feel safe at home: Yes Do you feel safe in your relationship?: Yes
[2020-10-23 09:03] VITALS: BP 98/58; PULSE 75
--- NOTE | 2020-10-23 10:53 | W.ANESPOSTOP ---
Postoperative Evaluation Date, Time and Location Date Performed: 10/23/20 Time Performed: 10:53 Patient Location: Med/Surg Vital Signs Most Recent Imported Vital Signs: Most Recent Vital Signs Temp Pulse Resp BP Pulse Ox 37.2 C 75 16 98/58 L 95 10/23/20 07:22 10/23/20 09:03 10/23/20 07:22 10/23/20 09:03 10/23/20 07:22 Pain Score Most Recent Pain Score: Most Recent Pain Score Pain Level 0 10/23/20 04:03 Assessment Mental Status: Awake (Alert & Oriented to Patient Baseline) Airway and Respiratory Function: Patent airway with normal (patient baseline) respiratory exam Cardiovascular Function: Hemodynamically Stable Hydration Status: Adequately Hydrated Nausea & Vomiting: No Nausea or Vomiting Pain: Pt. Denies Any Pain Peripheral Nerve Block: Patient did not receive a nerve block
[2020-10-23 11:09] VITALS: BP 98/42; PULSE 84; RESP 18; TEMP 38.1; O2SAT 96
[2020-10-23] MEDS: Docusate Sodium 100 MG CAP PO (11:12)
--- NOTE | 2020-10-23 11:46 | PDOC.CMIN ---
- If Service Date Differs Date of service: 10/23/20 Time of Service: 11:46 Care Management Initial Assess REASON FOR HOSPITALIZATION:: acute urinary retention PAST MEDICAL HISTORY/PAST SURGICAL HISTORY:: Medical History . Benign non-nodular prostatic hyperplasia with lower urinary tract symptoms (12/10/14). COPD (chronic obstructive pulmonary disease). Emphysema of lung. Multiple thyroid nodules. Paroxysmal atrial fibrillation. POLST (Physician Orders for Life-Sustaining Treatment). SVT (supraventricular tachycardia) (02/27/15). Holter : multiple SVT/long duration/intol. Metoprolol/Cardizem started//Holter . possible A.Fib: repeat holter / . Unspecified atrial flutter. [facility] admissions x2: BB, calcium channel blockers,coumadin . Surgical History . HERNIA REPAIR. SHOULDER SURGERY. 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 CURRENT FUNCTIONAL STATUS:: Cristobal was dressed and in a wheelchair ready to leave when CM came to meet withg him. He stated that he is feeling well and is going home. He denied the need for services and stated that his is at home and can help him if needed. ADVANCE DIRECTIVES:: COLST form on file Has patient been provided with info about the portal/API?: Yes Did the patient sign up for the portal?: No CODE STATUS:: Full Code INSURANCE COVERAGE / FINANCIAL ISSUES:: [employer] health Plans (MCR replacement). [employer] 100 PRIMARY CARE PHYSICIAN:: Sole Carter POTENTIAL DISCHARGE NEEDS:: follow up with PCP and plan of care PATIENT/FAMILY EDUCATION NEEDS:: Review of discharge instructions, medications, follow up plan, limitations, activity, Ask Me Three. TRANSPORTATION:: via privare vehicle with family PLAN:: Chris will be discharged home with no new services. He will follow up with Urology, his PCP and discharge plan of care and transport with family.
--- NOTE | 2020-10-23 15:53 | PDOC.CMDIS ---
- If Service Date Differs Date of service: 10/23/20 Time of Service: 15:53 LACE Index Scoring Tool - Questions: Length of Stay (in days): 1 Acuity (Admit via E.D.?): No Comorbidities: Chronic Pulmonary Disease E.D. Visits: 7 - Answers: Total Score: 7 Risk of Readmission: Low Risk Care Management Discharge Reason for Hospitalization: acute urinary retention Discharge Plan: Chris will be discharged home with no new services. He will follow up with Urology, his PCP and discharge plan of care and transport with family. Patient/Family Education Needs: Review of discharge instructions, medications, follow up plan, limitations, activity, Ask Me Three.
== END 2020-10-23 12:20 | disposition home or self-care (01) | DRG 713 ==
LOC: PDS 07:17 → MS 14:41
PROVIDERS: Admitting Provider Urology; PCP Family Medicine; Visit Provider Urology
PROC: 0VT08ZZ Resection of Prostate, Via Natural or Artificial Opening Endoscopic (ICD-10-PCS; CPT 52601; principal; 2020-10-22 09:00)
DX: N40.1 Benign prostatic hyperplasia with lower urinary tract symptoms (principal); I47.1 Supraventricular tachycardia; I48.92 Unspecified atrial flutter; N28.86 Ureteritis cystica; N41.0 Acute prostatitis; N41.1 Chronic prostatitis; I95.81 Postprocedural hypotension; R33.8 Other retention of urine; Z79.01 Long term (current) use of anticoagulants; R05 Cough; I48.0 Paroxysmal atrial fibrillation; J43.9 Emphysema, unspecified; F17.210 Nicotine dependence, cigarettes, uncomplicated
CPT/HCPCS: 52601; 36415; 80048; 85027; 88305; J0131; J0171; J0690; J2001; J2370; J2405; J2704; J3010

== ENCOUNTER 2020-10-27 15:50 | Emergency (ER) | payer OTHER, SELFPAY ==
[2020-10-27 15:53] VITALS: BP 108/46; PULSE 80; TEMP 36.3; O2SAT 97
[2020-10-27 16:54] LABS: Bilirubin Negative (Negative); Blood Large (Negative); Clarity Cloudy (Clear); Glucose Negative (Negative); Ketones Negative (Negative); Leukocyte Esterase Moderate (Negative); Nitrite Negative (Negative); Specific Gravity 1.025 (1.005-1.025); Urobilinogen 0.2 EU/dL (Up TO 0.2)
[2020-10-27 16:55] LABS: WBC >50 HPF (0-5)
[2020-10-27 16:56] LABS: C & S Indicated? Yes
[2020-10-27 17:00] LABS: Bacteria Many HPF (Negative); RBC >50 HPF (0-2)
--- NOTE | 2020-10-27 17:01 | W.ED.GENAD ---
Discharge Plan Disposition Patient Disposition: HOME Condition: Stable Discharge Details Clinical Impression: Walker catheter problem, Urinary tract infection Primary Care Provider: Sole Carter ED Provider: Otoniel Villegas Home Meds and New Rx's Prescriptions: New cephalexin 500 mg capsule 500 mg PO BID Qty: 14 RF: 0 Continued Myrbetriq 50 mg tablet extended release 24 hr 50 mg PO DAILY Qty: 90 RF: 4 warfarin 5 mg tablet 5 mg PO DAILY Qty: 90 RF: 6 diltiazem HCl 360 mg capsule,extended release 24hr 360 mg PO DAILY Qty: 90 RF: 4 bisoprolol fumarate 5 mg tablet 5 mg PO DAILY Qty: 90 RF: 4 Anoro Ellipta 62.5-25 mcg/actuation blister with device 1 inh inhalation DAILY Qty: 60 RF: 3 lisinopril 2.5 mg tablet 2.5 mg PO DAILY RF: 0 Discontinued levofloxacin 750 mg tablet 750 mg PO DAILY Qty: 6 RF: 0 Discharge Instructions Instructions: Urinary Tract Infection in Men (ED), Walker Catheter Placement and Care (ED) Additional Instructions: White cells remain in your urine, therefore I am starting you on Keflex. Please watch for new or worsening symptoms and return to the ER for any concerns. Please follow the directions given to you by Dr. Carbone. Follow-up with Dr. Carbone tomorrow morning as already scheduled. Discharge Data Discharge Date/Time-TO BE ENTERED AT DEPARTURE: 10/27/20 17:16 Medical Decision Making 80-year-old gentleman presents with Walker leaking. We attempted to flush the Walker catheter one time, a small clot passed, and then yellow urine passed freely into the urine bag. Patient feels as though his bladder is emptying completely. Will obtain a urinalysis and reassess In the meantime Dr. Carbone came down to the ER to personally evaluate the patient, please see his note. Patient will hold his warfarin this evening and he will follow up with Dr. Carbone in the morning Urinalysis with greater than 50 red and white cells with moderate leuk esterase, very well could be colonization but given his Walker catheter problem will initiate antibiotic therapy. Will initiate Keflex first dose now and provide a prescription. Patient and significant other have no additional questions or concerns and are comfortable discharge and following up with Dr. Carbone tomorrow Standard discharge and return precautions provided This documentation was generated using [employer] system, please disregard any oddities of phrase or misspellings. Medical Records Medical records reviewed: Yes I reviewed the patient's medical records. Lab Data Lab results reviewed: Yes I reviewed the patient's lab results. Labs: 10/27/20 16:45 Urine - Reflex from Ua Urine Culture - Pending Laboratory Tests Range/Units 10/27/20 16:45 Urine Color (Yellow) Brown Urine Clarity (Clear) Cloudy Urine pH (5-8) 6.0 Ur Specific [place] (1.005-1.025) 1.025 Urine Protein (Negative) mg/dL >=300 H Urine Ketones (Negative) mg/dL Negative Urine Blood (Negative) Large H Urine Nitrite (Negative) Negative Urine Bilirubin (Negative) Negative Urine Urobilinogen (Up TO 0.2) EU/dL 0.2 Ur Leukocyte Esterase (Negative) Moderate H Urine RBC (0-2) HPF >50 H Urine WBC (0-5) HPF >50 H Ur Epithelial Cells Not Applicable Urine Crystals Not Applicable Urine Bacteria (Negative) HPF Many Urine Mucus Not Applicable Ur Culture Indicated? Yes Urine Glucose (Negative) mg/dL Negative HPI General Mode of arrival: ambulatory. Date/Time Provider Initiated Documentation: 10/27/20 16:01. Limitations to Documentation: no limitations. Information obtained by: patient and family. HPI Narrative: This is a 80-year-old gentleman, past medical history that includes BPH, COPD, atrial fibrillation, anticoagulation, chronic indwelling Walker catheter, recently seen in the ER on 10-18 for catheter issues, subsequent transurethral resection of the prostate on 10-22, presenting to the ER now for evaluation of a leaking Walker catheter. Patient states that he is scheduled to be seen by Dr. Carbone tomorrow morning to have the Walker catheter removed. Patient states the Walker catheter began leaking over the last hour or so, they attempted to flush at home without any success. Denies fever, abdominal pain, nausea, vomiting, dysuria or hematuria. Related Data Home Medications Medication Instructions Recorded Confirmed warfarin 5 mg tablet 5 mg PO DAILY #90 tab-cap 11/20/19 10/27/20 diltiazem HCl 360 mg 360 mg PO DAILY #90 tab-cap 05/28/20 10/27/20 capsule,extended release 24 hr bisoprolol fumarate 5 mg tablet 5 mg PO DAILY #90 tab 09/14/20 10/27/20 mirabegron 50 mg tablet,extended 50 mg PO DAILY #90 tab-cap 10/15/20 10/27/20 release 24 hr umeclidinium 62.5 mcg-vilanterol 1 inh INHALATION DAILY #60 ea 10/21/20 10/27/20 25 mcg/actuation powdr for inhalation lisinopril 2.5 mg PO DAILY 10/22/20 10/27/20 cephalexin 500 mg PO BID #14 cap 10/27/20 Previous Rx's Medication Instructions Recorded warfarin 5 mg tablet 5 mg PO DAILY #90 tab-cap 11/20/19 diltiazem HCl 360 mg 360 mg PO DAILY #90 tab-cap 05/28/20 capsule,extended release 24 hr bisoprolol fumarate 5 mg tablet 5 mg PO DAILY #90 tab 09/14/20 mirabegron 50 mg tablet,extended 50 mg PO DAILY #90 tab-cap 10/15/20 release 24 hr umeclidinium 62.5 mcg-vilanterol 1 inh INHALATION DAILY #60 ea 10/21/20 25 mcg/actuation powdr for inhalation cephalexin 500 mg PO BID #14 cap 10/27/20 Allergies Allergy/AdvReac Type Severity Reaction Status Date / Time metoprolol AdvReac Mild DIARRHEA Verified 10/27/20 16:10 General Stated Complaint: Urinary KELLI: 3 Review of Systems Constitutional Constitutional: Denies fever(s) Cardiovascular Cardiovascular: Denies chest pain and Denies dyspnea Respiratory Respiratory: Denies dyspnea Gastrointestinal Gastrointestinal: Denies abdominal pain, Denies nausea and Denies vomiting Genitourinary Genitourinary: Denies hematuria Comments: Walker leaking Musculoskeletal Musculoskeletal: Denies back pain Integumentary/Breasts Skin/Breast: Denies rash [facility] Medical History Benign non-nodular prostatic hyperplasia with lower urinary tract symptoms (12/10/14) COPD (chronic obstructive pulmonary disease) Emphysema of lung Multiple thyroid nodules Paroxysmal atrial fibrillation POLST (Physician Orders for Life-Sustaining Treatment) SVT (supraventricular tachycardia) (02/27/15) Holter -2014: multiple SVT/long duration/intol. 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 Paternal Grandfather No problems noted. 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: No Do you feel safe at home: Yes Do you feel safe in your relationship?: Yes Exam Const General: cooperative, healthy appearing, comfortable and no acute distress Orientation: alert and awake HENAK Head: normal to inspection, normocephalic and atraumatic Eyes Conjunctivae: conjunctivae normal Neck Neck: normal visual inspection, trachea midline and supple Resp Effort & Inspection: normal respiratory effort and able to speak in complete sentences GI Inspection: normal to inspection Palpation: soft, not firm, no guarding, no pulsatile masses and nontender Auscultation: normal bowel sounds Other: Walker catheter in place, otherwise unremarkable examination Back/Spine/Pelvis Back: No back tenderness Skin General skin exam: no rashes or lesions noted Neuro General: patient alert, patient awake, moves all extremities and no focal motor deficits Cognition: normal cognition Speech: speech normal Gait: normal gait Sensory Exam: no sensory deficits noted Psych Appearance: grossly normal Mental Status: mental status grossly normal Course Vital Signs Vital signs: Vital Signs Temperature 36.3 C L 10/27/20 15:53 Pulse 80 10/27/20 15:53 Blood Pressure 108/46 L 10/27/20 15:53 Pulse Oximetry 97 10/27/20 15:53 Temperature 36.3 C L 10/27/20 15:53 Temperature Source Temporal Artery Scan 10/27/20 15:53 Pulse 80 10/27/20 15:53 Respiratory Effort 10/27/20 16:04 Blood Pressure 108/46 L 10/27/20 15:53 Blood Pressure Position Sitting 10/27/20 15:53 Pulse Oximetry 97 10/27/20 15:53 Oxygen Delivery Method Room Air 10/27/20 15:53 Oxygen Flow Rate 0 10/27/20 15:53 Pain Level 4 10/27/20 15:53 Lab/Test Results Lab/Test Results: 10/27/20 16:45 Urine - Reflex from Ua Urine Culture - Pending Laboratory Tests Range/Units 10/27/20 16:45 Urine Color (Yellow) Brown Urine Clarity (Clear) Cloudy Urine pH (5-8) 6.0 Ur Specific [place] (1.005-1.025) 1.025 Urine Protein (Negative) mg/dL >=300 H Urine Ketones (Negative) mg/dL Negative Urine Blood (Negative) Large H Urine Nitrite (Negative) Negative Urine Bilirubin (Negative) Negative Urine Urobilinogen (Up TO 0.2) EU/dL 0.2 Ur Leukocyte Esterase (Negative) Moderate H Urine RBC (0-2) HPF >50 H Urine WBC (0-5) HPF >50 H Ur Epithelial Cells Not Applicable Urine Crystals Not Applicable Urine Bacteria (Negative) HPF Many Urine Mucus Not Applicable Ur Culture Indicated? Yes Urine Glucose (Negative) mg/dL Negative
[2020-10-27 17:18] VITALS: BP 108/61; PULSE 76; RESP 16; TEMP 36.4; O2SAT 95
== END 2020-10-27 17:16 | disposition home or self-care (01) ==
PROVIDERS: Emergency Provider Physician Assistant; PCP Family Medicine
DX: N39.0 Urinary tract infection, site not specified (principal); B37.9 Candidiasis, unspecified; T83.038A Leakage of other urinary catheter, initial encounter
CPT/HCPCS: 99283; 81003; 81015; 87086

== ENCOUNTER → 2020-10-28 08:27 | Outpatient (BNVA) | payer OTHER, SELFPAY | PROVIDERS: PCP Family Medicine; Referring Provider Family Medicine; Visit Provider Nurse Practitioner Gerontology | DX: Z48.816 Encounter for surgical aftercare following surgery on the genitourinary system (principal); N40.1 Benign prostatic hyperplasia with lower urinary tract symptoms; R33.8 Other retention of urine ==

== ENCOUNTER 2020-10-28 14:56 | Outpatient (REF) | payer OTHER, SELFPAY ==
[2020-10-28 10:57] LABS: HCT 25.9 % (40.0-50.0); HGB 8.2 g/dL (13.5-17.5)
[2020-10-28 10:58] LABS: INR 1.4 (0.9-1.1); Prothrombin Time 13.9 sec (9.3-11.0)
== END 2020-10-28 14:57 | disposition home or self-care (01) ==
LOC: LBN 14:56
PROVIDERS: PCP Family Medicine; Referring Provider Urology; Visit Provider Urology
DX: R31.9 Hematuria, unspecified (principal)
CPT/HCPCS: 85014; 85018; 85610

== ENCOUNTER → 2020-11-06 14:45 | Outpatient (BNVA) | payer OTHER, SELFPAY | PROVIDERS: PCP Family Medicine; Referring Provider Family Medicine; Visit Provider Urology | DX: Z48.816 Encounter for surgical aftercare following surgery on the genitourinary system (principal); N40.1 Benign prostatic hyperplasia with lower urinary tract symptoms; I48.92 Unspecified atrial flutter; Z79.01 Long term (current) use of anticoagulants | CPT/HCPCS: 36415 ==

== ENCOUNTER 2020-11-06 16:13 | Outpatient (REF) | payer OTHER, SELFPAY ==
[2020-11-06 16:48] LABS: HCT 29.6 % (40.0-50.0); HGB 9.2 g/dL (13.5-17.5)
[2020-11-06 17:14] LABS: INR 2.3 (0.9-1.1); Prothrombin Time 22.3 sec (9.3-11.0)
== END 2020-11-06 16:14 | disposition home or self-care (01) ==
LOC: LBN 16:13
PROVIDERS: PCP Family Medicine; Visit Provider Urology
DX: I48.92 Unspecified atrial flutter; D64.9 Anemia, unspecified
CPT/HCPCS: 85014; 85018; 85610

== ENCOUNTER → 2020-12-04 13:53 | Outpatient (BNVA) | payer OTHER, SELFPAY | PROVIDERS: PCP Family Medicine; Referring Provider Family Medicine; Visit Provider Urology | DX: Z48.816 Encounter for surgical aftercare following surgery on the genitourinary system (principal); R33.8 Other retention of urine; N40.1 Benign prostatic hyperplasia with lower urinary tract symptoms; R97.20 Elevated prostate specific antigen [PSA] ==

== ENCOUNTER → 2021-01-19 14:17 | Outpatient (BNVA) | payer OTHER, SELFPAY | PROVIDERS: PCP Family Medicine; Referring Provider Family Medicine; Visit Provider Urology | DX: N40.1 Benign prostatic hyperplasia with lower urinary tract symptoms (principal) | CPT/HCPCS: 99212 ==

== ENCOUNTER 2021-02-10 03:02 | Outpatient (CLI) | payer OTHER, SELFPAY ==
[2021-02-10 11:11] LABS: INR 3.6 (0.9-1.1)
== END 2021-02-10 03:03 | disposition home or self-care (01) ==
LOC: LBO 03:02
PROVIDERS: PCP Family Medicine; Visit Provider Family Medicine
DX: I48.91 Unspecified atrial fibrillation (principal); Z79.01 Long term (current) use of anticoagulants
CPT/HCPCS: 36415; 85610

== ENCOUNTER 2021-02-17 02:34 | Outpatient (CLI) | payer OTHER, SELFPAY ==
[2021-02-17 10:45] LABS: INR 3.6 (0.9-1.1); Prothrombin Time 34.8 sec (9.3-11.0)
== END 2021-02-17 02:35 | disposition home or self-care (01) ==
LOC: LBO 02:34
PROVIDERS: PCP Family Medicine; Visit Provider Family Medicine
DX: I48.92 Unspecified atrial flutter (principal); Z79.01 Long term (current) use of anticoagulants
CPT/HCPCS: 36415; 85610

== ENCOUNTER 2021-02-24 04:11 | Outpatient (CLI) | payer OTHER, SELFPAY ==
[2021-02-24 10:42] LABS: INR 1.9 (0.9-1.1); Prothrombin Time 19.1 sec (9.3-11.0)
== END 2021-02-24 04:12 | disposition home or self-care (01) ==
LOC: LBO 04:14
PROVIDERS: PCP Family Medicine; Visit Provider Emergency Medicine
DX: Z79.01 Long term (current) use of anticoagulants (principal); I48.92 Unspecified atrial flutter
CPT/HCPCS: 36415; 85610

== ENCOUNTER 2021-03-17 01:30 | Outpatient (CLI) | payer OTHER, SELFPAY ==
[2021-03-17 11:26] LABS: INR 3.3 (0.9-1.1); Prothrombin Time 32.4 sec (9.3-11.0)
== END 2021-03-17 01:31 | disposition home or self-care (01) ==
LOC: LBO 01:36
PROVIDERS: PCP Family Medicine; Visit Provider Family Medicine
DX: I48.91 Unspecified atrial fibrillation (principal); Z79.01 Long term (current) use of anticoagulants
CPT/HCPCS: 36415; 85610

== ENCOUNTER 2021-03-31 01:47 | Outpatient (CLI) | payer OTHER, SELFPAY ==
[2021-03-31 15:28] LABS: INR 1.5 (0.9-1.1)
== END 2021-03-31 01:48 | disposition home or self-care (01) ==
LOC: LBO 01:47
PROVIDERS: PCP Family Medicine; Visit Provider Family Medicine
DX: I48.92 Unspecified atrial flutter (principal); Z79.01 Long term (current) use of anticoagulants
CPT/HCPCS: 36415; 85610

== ENCOUNTER 2021-04-07 02:37 | Outpatient (CLI) | payer OTHER, SELFPAY ==
[2021-04-07 10:03] LABS: INR 1.5 (0.9-1.1); Prothrombin Time 14.8 sec (9.3-11.0)
== END 2021-04-07 02:38 | disposition home or self-care (01) ==
LOC: LBO 02:37
PROVIDERS: PCP Family Medicine
DX: Z79.01 Long term (current) use of anticoagulants (principal); I48.92 Unspecified atrial flutter
CPT/HCPCS: 36415; 85610

== ENCOUNTER 2021-04-14 01:53 | Outpatient (CLI) | payer OTHER, SELFPAY ==
[2021-04-14 10:20] LABS: INR 2.3 (0.9-1.1); Prothrombin Time 22.2 sec (9.3-11.0)
== END 2021-04-14 01:54 | disposition home or self-care (01) ==
PROVIDERS: PCP Family Medicine
DX: I48.92 Unspecified atrial flutter (principal); Z79.01 Long term (current) use of anticoagulants
CPT/HCPCS: 36415; 85610

== ENCOUNTER 2021-04-21 01:38 | Outpatient (CLI) | payer OTHER, SELFPAY ==
[2021-04-21 09:48] LABS: INR 2.7 (0.9-1.1); Prothrombin Time 26.1 sec (9.3-11.0)
== END 2021-04-21 01:39 | disposition home or self-care (01) ==
PROVIDERS: PCP Family Medicine; Visit Provider Family Medicine
DX: Z79.01 Long term (current) use of anticoagulants (principal); I48.92 Unspecified atrial flutter
CPT/HCPCS: 36415; 85610

== ENCOUNTER 2021-05-19 02:57 | Outpatient (CLI) | payer OTHER, SELFPAY ==
[2021-05-19 10:02] LABS: Prothrombin Time 19.4 sec (9.3-11.0)
== END 2021-05-19 02:58 | disposition home or self-care (01) ==
LOC: LBO 02:57
PROVIDERS: PCP Family Medicine; Visit Provider Family Medicine
DX: Z79.01 Long term (current) use of anticoagulants (principal); I48.92 Unspecified atrial flutter
CPT/HCPCS: 36415; 85610

== ENCOUNTER 2021-06-02 03:10 | Outpatient (CLI) | payer OTHER, SELFPAY ==
[2021-06-02 10:59] LABS: INR 2.6 (0.9-1.1); Prothrombin Time 25.2 sec (9.3-11.0)
== END 2021-06-02 03:11 | disposition home or self-care (01) ==
LOC: LBO 03:10
PROVIDERS: PCP Family Medicine; Visit Provider Family Medicine
DX: I48.92 Unspecified atrial flutter (principal); Z79.01 Long term (current) use of anticoagulants
CPT/HCPCS: 36415; 85610

== ENCOUNTER → 2021-07-07 01:20 | Outpatient (CLI) | payer OTHER, SELFPAY ==
--- NOTE | 2021-07-07 07:45 | DI.US_ITS ---
Exam(s) US THYROID EXAM: US THYROID CLINICAL HISTORY: fup thyroid nodules/< 1cm/yearly, MULTIPLE THYROID NODULES, E04.2. TECHNIQUE: Ultrasound thyroid performed using standard protocol. COMPARISON: US US THYROID from 07/10/2020 FINDINGS: Both thyroid lobes again exhibit normal size as does the isthmus. RIGHT THYROID LOBE: Measures 1.7 cm AP x 2 cm wide x 5 cm craniocaudal Single nodule is again noted in the right lobe, previously described. On the present study the sveta cteristics of this nodule are as follows.... Nodule #1 Size: Measures 0.8 x 0.5 x 0.5 cm Composition: Mixed [id number]-3 point Echogenicity: Isoechoic-1 point Shape: Wider than taller-0 points Margin: Smooth- 0 points Echogenic Foci: Single peripheral calcification noted-2 points Total Points for this nodule: 4 ACR Ti-Rads Category: TR4 This TR4 nodule can be followed and does not require FNA at this time given that it measures less giana n 1.5 cm. ISTHMUS: Normal thickness. There are no nodules in the isthmus. LEFT THYROID LOBE: Measures 1.4 cm AP x 1.2 wide x 4.3 cm craniocaudal The left lobe contains 3 small nodules, all graded at less than tire adds 4 and all less than 1 cm si ze and therefore can be followed. The largest nodule in the left lobe measures 0.8 x 0.5 x 0.5 cm. LYMPH NODES: There is no significant adenopathy. IMPRESSION: 1. Stable appearance when compared to the prior study of June 2020. 2. Details as above 3. There is no significant lymphadenopathy. DATA REPOSITORY:
== END ==
PROVIDERS: PCP Family Medicine; Visit Provider Family Medicine
DX: E04.2 Nontoxic multinodular goiter (principal)
CPT/HCPCS: 76536

== ENCOUNTER 2021-07-07 02:48 | Outpatient (CLI) | payer OTHER, SELFPAY | END 2021-07-07 02:49 | disposition home or self-care (01) | LOC: LBO 02:49 | PROVIDERS: PCP Family Medicine; Visit Provider Family Medicine | DX: I48.92 Unspecified atrial flutter (principal); Z79.01 Long term (current) use of anticoagulants | CPT/HCPCS: 36415; 85610 ==

== ENCOUNTER → 2021-07-13 14:31 | Outpatient (BNVA) | payer OTHER, SELFPAY | PROVIDERS: PCP Family Medicine; Referring Provider Family Medicine; Visit Provider Urology | DX: N40.0 Benign prostatic hyperplasia without lower urinary tract symptoms (principal) | CPT/HCPCS: 51798; 99213 ==

== ENCOUNTER 2021-08-04 02:17 | Outpatient (CLI) | payer OTHER, SELFPAY ==
[2021-08-04 12:59] LABS: INR 2.9 (0.9-1.1); Prothrombin Time 27.3 sec (9.3-11.0)
== END 2021-08-04 02:18 | disposition home or self-care (01) ==
PROVIDERS: PCP Family Medicine; Visit Provider Family Medicine
DX: I48.92 Unspecified atrial flutter (principal); Z79.01 Long term (current) use of anticoagulants
CPT/HCPCS: 36415; 85610

== ENCOUNTER 2021-09-29 03:24 | Outpatient (CLI) | payer OTHER, SELFPAY ==
[2021-09-29 12:35] LABS: Prothrombin Time 36.5 sec (9.3-11.0)
== END 2021-09-29 03:25 | disposition home or self-care (01) ==
LOC: LOS 03:24
PROVIDERS: PCP Family Medicine
DX: Z79.01 Long term (current) use of anticoagulants (principal); I48.92 Unspecified atrial flutter
CPT/HCPCS: 36415; 85610

== ENCOUNTER 2021-10-15 01:05 | Outpatient (CLI) | payer OTHER, SELFPAY ==
[2021-10-15 13:18] LABS: Prothrombin Time 37.1 sec (9.3-11.0)
== END 2021-10-15 01:06 | disposition home or self-care (01) ==
LOC: LOS 01:05
PROVIDERS: PCP Family Medicine
DX: I48.0 Paroxysmal atrial fibrillation (principal); Z79.01 Long term (current) use of anticoagulants
CPT/HCPCS: 36415; 85610

== ENCOUNTER 2021-11-03 01:44 | Outpatient (CLI) | payer OTHER, SELFPAY ==
[2021-11-03 13:05] LABS: INR 1.9 (0.9-1.1); Prothrombin Time 18.3 sec (9.3-11.0)
== END 2021-11-03 01:45 | disposition home or self-care (01) ==
LOC: LOS 01:44
PROVIDERS: PCP Family Medicine; Visit Provider Family Medicine
DX: Z79.01 Long term (current) use of anticoagulants (principal); I48.0 Paroxysmal atrial fibrillation
CPT/HCPCS: 36415; 85610

== ENCOUNTER 2021-11-17 03:18 | Outpatient (CLI) | payer OTHER, SELFPAY ==
[2021-11-17 12:14] LABS: HCT 40.9 % (40.0-50.0); HGB 13.7 g/dL (13.5-17.5); MCH 30.6 pg (27.0-33.0); MCHC 33.5 % (32.0-36.0); MCV 91 fL (80-95); MPV 9.6 fL (8.0-11.0); Platelet Count 248 10^3/uL (130-400); RBC 4.48 10^6/uL (4.36-5.78); RDW 12.6 % (11.8-14.1); RDW-SD 42.2 fL; WBC 8.46 10^3/uL (4.4-10.8)
[2021-11-17 12:20] LABS: Iron 84 ug/dL (65-175); Total Iron Binding Capacity 276 ug/dL (250-450); Transferrin Sat 30 % (20-55)
[2021-11-17 13:00] LABS: ALT 78 U/L (16-63); AST 50 U/L (15-37); Albumin 3.4 g/dL (3.4-5.0); Alkaline Phosphatase 132 U/L (46-116); Anion Gap 8.1 mmol/L (3-11); BUN 16 mg/dL (7-18); Bilirubin, Total 0.4 mg/dL (0.2-1.0); CO2 28.9 mmol/L (21.0-32.0); CREATININE 1.3 mg/dL (0.70-1.30); Calcium 9.5 mg/dL (8.5-10.1); Chloride 106 mmol/L (98-107); Estimated GFR 55.88 (mL/min/1.73m2); Ferritin 57 ng/mL (26-388); Folate 18.5 ng/mL (8.6-20.0); Glucose 93 mg/dL (74-106); Potassium 3.9 mmol/L (3.5-5.1); Sodium 143 mmol/L (136-145); Total Protein 7.6 g/dL (6.4-8.2); Vitamin B12 617 pg/mL (193-986)
== END 2021-11-17 03:19 | disposition home or self-care (01) ==
LOC: LOS 03:18
PROVIDERS: Family Medicine; PCP Family Medicine; Visit Provider Family Medicine
DX: D64.9 Anemia, unspecified (principal); I48.0 Paroxysmal atrial fibrillation; I10 Essential (primary) hypertension
CPT/HCPCS: 36415; 80053; 85027; 82607; 82728; 82746; 83540; 83550

== ENCOUNTER 2021-12-22 03:30 | Outpatient (CLI) | payer OTHER, SELFPAY ==
[2021-12-22 12:30] LABS: INR 2.3 (0.9-1.1); Prothrombin Time 21.9 sec (9.3-11.0)
== END 2021-12-22 03:31 | disposition home or self-care (01) ==
PROVIDERS: PCP Family Medicine; Visit Provider Family Medicine
DX: I48.91 Unspecified atrial fibrillation (principal)
CPT/HCPCS: 36415; 85610

== ENCOUNTER 2022-01-25 02:25 | Outpatient (CLI) | payer OTHER, SELFPAY ==
--- NOTE | 2022-01-25 07:30 | DI.CTLCSR_ITS ---
Exam(s) CT CHEST LUNG CANCER SCREEN EXAM: CT CHEST LUNG CANCER SCREEN CLINICAL HISTORY: screening for lung ca,current smoker, f17.210 TECHNIQUE: Imaging Protocol: Axial computed tomography images with coronal and sagittal reformatted images were created and reviewed COMPARISON: CT CT CHEST W from 02/17/[address] ABDOMEN PELVIS W from 09/25/2020 FINDINGS: Tracheobronchial tree: Patent where visualized. Pulmonary parenchyma: No consolidation or dominant measurable mass. Emphysematous changes are present in the lungs. There is scarring in the lung apices. Parenchymal calcifications are present. Lung Nodules: None. Mediastinum and [place]: No dominant adenopathy or fluid collection. The esophagus is unremarkable. Thyroid gland: Unremarkable. Lymph nodes: Unremarkable. Pleura: No effusion or pneumothorax. Heart: The heart is not dilated. Coronary artery calcifications and stents are present. No pericardi al effusion. Aorta: Thoracic aorta non-dilated.There is atherosclerosis of the thoracic aorta. Upper abdomen: There are multiple hepatic cysts again seen. Soft Tissues: Unremarkable. Bones: Within normal limits. IMPRESSION: No pulmonary nodules. Lung RADS Cat 1 - Negative: No nodules and definitely benign nodules Lung-RADS 1.0 CATEGORIES: Category 0 - Prior chest CT exam(s) being located for comparison. Category 1 - Annual screening in 12 months. No nodules or definitely benign nodules. Category 2 - Annual screening in 12 months. Benign appearance. Nodules with low likelihood of becomin g active cancer. Category 3 - 6-month follow-up. Probably benign. Short-term follow-up suggested. Nodules with low lik elihood of becoming active cancer. Category 4A - 3-month follow-up and CT/PET if >8 mm in size. Suspicious finding. Findings which requi re additional testing. Category 4B - Findings which require additional testing and tissue sampling. Suspicious finding. Category 4X - Category 3 or 4 nodules with additional features or imaging findings that increases the suspicion of malignancy. Modifier S- Potentially clinically significant finding. (Non lung cancer) RADIATION DOSE DELIVERED: 96.24mGy.cm Total DLP 1.84mGy!Error CTDIvol 96.24mGy.cmTotal DLP 1.84mGy!Error CTDIvol DATA REPOSITORY: All CT scans at this facility are submitted to the National Radiology Data Registry (NRDR) Dose Index Registry (DIR) with the [employer] (ACR). RADIATION OPTIMIZATION: All CT scans at this facility use at least one of these dose optimization te chniques: automated exposure control; mA and/or kV adjustment per patient size (includes targeted exa ms where dose is matched to clinical indication); or iterative reconstruction.
== END 2022-01-25 02:45 ==
LOC: DI 02:25
PROVIDERS: PCP Family Medicine; Visit Provider Family Medicine
DX: F17.210 Nicotine dependence, cigarettes, uncomplicated (principal); Z12.2 Encounter for screening for malignant neoplasm of respiratory organs
CPT/HCPCS: 71271

== ENCOUNTER 2022-01-25 13:27 | Outpatient (CLI) | payer OTHER, SELFPAY ==
[2022-01-25 13:04] LABS: INR 2.5 (0.9-1.1); Prothrombin Time 23.5 sec (9.3-11.0)
== END 2022-01-25 13:28 | disposition home or self-care (01) ==
LOC: LBO 13:28
PROVIDERS: PCP Family Medicine
DX: I48.91 Unspecified atrial fibrillation (principal)
CPT/HCPCS: 36415; 85610

== ENCOUNTER 2022-03-09 03:16 | Outpatient (CLI) | payer OTHER, SELFPAY ==
[2022-03-09 12:59] LABS: INR 2.2 (0.9-1.1); Prothrombin Time 21.3 sec (9.3-11.0)
== END 2022-03-09 03:17 | disposition home or self-care (01) ==
LOC: LOS 03:23
PROVIDERS: PCP Family Medicine; Visit Provider Family Medicine
DX: I48.91 Unspecified atrial fibrillation (principal)
CPT/HCPCS: 36415; 85610

== ENCOUNTER 2022-04-20 02:56 | Outpatient (CLI) | payer OTHER, SELFPAY ==
[2022-04-20 12:30] LABS: INR 2.2 (0.9-1.1)
[2022-04-20 13:25] LABS: ALT 35 U/L (16-63); AST 29 U/L (15-37); Albumin 3.7 g/dL (3.4-5.0); Alkaline Phosphatase 129 U/L (46-116); Bilirubin, Direct 0.1 mg/dL (0.0-0.2); Bilirubin, Total 0.4 mg/dL (0.2-1.0); Total Protein 7.7 g/dL (6.4-8.2)
== END 2022-04-20 02:57 | disposition home or self-care (01) ==
PROVIDERS: PCP Family Medicine; Visit Provider Family Medicine
DX: R74.8 Abnormal levels of other serum enzymes (principal); I48.91 Unspecified atrial fibrillation
CPT/HCPCS: 36415; 80076; 85610

== ENCOUNTER 2022-06-15 03:03 | Outpatient (CLI) | payer OTHER, SELFPAY ==
[2022-06-15 12:55] LABS: Prothrombin Time 20.6 sec (9.3-11.0)
== END 2022-06-15 03:04 | disposition home or self-care (01) ==
LOC: LOS 03:03
PROVIDERS: PCP Family Medicine; Visit Provider Family Medicine
DX: I48.0 Paroxysmal atrial fibrillation (principal); Z79.01 Long term (current) use of anticoagulants
CPT/HCPCS: 36415; 85610

== ENCOUNTER → 2022-07-12 13:09 | Outpatient (BNVA) | payer OTHER, SELFPAY | PROVIDERS: PCP Family Medicine; Visit Provider Urology | DX: N40.1 Benign prostatic hyperplasia with lower urinary tract symptoms (principal); R39.89 Other symptoms and signs involving the genitourinary system | CPT/HCPCS: 51798; 99213 ==

== ENCOUNTER 2022-08-02 02:03 | Outpatient (CLI) | payer OTHER, SELFPAY ==
[2022-08-02 10:54] LABS: INR 1.8 (0.9-1.1)
== END 2022-08-02 02:04 | disposition home or self-care (01) ==
LOC: LOS 02:03
PROVIDERS: PCP Family Medicine; Visit Provider Family Medicine
DX: I48.91 Unspecified atrial fibrillation (principal); Z79.01 Long term (current) use of anticoagulants
CPT/HCPCS: 36415; 85610

== ENCOUNTER 2022-08-17 02:48 | Outpatient (CLI) | payer OTHER, SELFPAY ==
[2022-08-17 11:03] LABS: INR 1.6 (0.9-1.1); Prothrombin Time 16.1 sec (9.3-11.0)
== END 2022-08-17 02:49 | disposition home or self-care (01) ==
LOC: LOS 02:48
PROVIDERS: PCP Family Medicine; Visit Provider Family Medicine
DX: I48.91 Unspecified atrial fibrillation (principal)
CPT/HCPCS: 36415; 85610

== ENCOUNTER 2022-08-26 01:39 | Outpatient (CLI) | payer OTHER, SELFPAY ==
[2022-08-26 12:55] LABS: INR 2.4 (0.9-1.1); Prothrombin Time 24.1 sec (9.3-11.0)
== END 2022-08-26 01:40 | disposition home or self-care (01) ==
LOC: LOS 01:39
PROVIDERS: PCP Family Medicine; Visit Provider Family Medicine
DX: I48.91 Unspecified atrial fibrillation (principal); Z79.01 Long term (current) use of anticoagulants
CPT/HCPCS: 36415; 85610

== ENCOUNTER 2022-09-21 03:28 | Outpatient (CLI) | payer OTHER, SELFPAY ==
[2022-09-21 11:07] LABS: Prothrombin Time 30.2 sec (9.3-11.0)
== END 2022-09-21 03:29 | disposition home or self-care (01) ==
PROVIDERS: PCP Family Medicine; Visit Provider Family Medicine
DX: I48.91 Unspecified atrial fibrillation (principal); Z79.01 Long term (current) use of anticoagulants
CPT/HCPCS: 36415; 85610

== ENCOUNTER 2022-10-26 04:17 | Outpatient (CLI) | payer OTHER, SELFPAY ==
[2022-10-26 12:29] LABS: INR 2.2 (0.9-1.1); Prothrombin Time 22.5 sec (9.3-11.0)
== END 2022-10-26 04:18 | disposition home or self-care (01) ==
LOC: LOS 04:17
PROVIDERS: PCP Family Medicine; Visit Provider Family Medicine
DX: I48.0 Paroxysmal atrial fibrillation (principal); Z79.01 Long term (current) use of anticoagulants
CPT/HCPCS: 36415; 85610

== ENCOUNTER 2022-11-23 03:24 | Outpatient (CLI) | payer OTHER, SELFPAY ==
[2022-11-23 10:59] LABS: INR 3.2 (0.9-1.1)
== END 2022-11-23 03:25 | disposition home or self-care (01) ==
LOC: LOS 03:24
PROVIDERS: PCP Family Medicine; Visit Provider Family Medicine
DX: I48.0 Paroxysmal atrial fibrillation (principal); Z79.01 Long term (current) use of anticoagulants
CPT/HCPCS: 36415; 85610

== ENCOUNTER 2022-12-09 02:06 | Outpatient (CLI) | payer OTHER, SELFPAY ==
[2022-12-09 12:32] LABS: INR 2.2 (0.9-1.1); Prothrombin Time 20.6 sec (9.1-11.1)
== END 2022-12-09 02:07 | disposition home or self-care (01) ==
PROVIDERS: PCP Family Medicine; Visit Provider Family Medicine
DX: I48.0 Paroxysmal atrial fibrillation (principal)
CPT/HCPCS: 36415; 85610

== ENCOUNTER 2023-01-24 02:08 | Outpatient (CLI) | payer OTHER, SELFPAY ==
[2023-01-24 13:20] LABS: INR 2.4 (0.9-1.1); Prothrombin Time 22.5 sec (9.1-11.1)
== END 2023-01-24 02:09 | disposition home or self-care (01) ==
LOC: LOS 02:12
PROVIDERS: PCP Family Medicine; Visit Provider Family Medicine
DX: I48.0 Paroxysmal atrial fibrillation (principal); Z79.01 Long term (current) use of anticoagulants
CPT/HCPCS: 36415; 85610

== ENCOUNTER 2023-03-08 02:42 | Outpatient (CLI) | payer OTHER, SELFPAY ==
[2023-03-08 12:26] LABS: INR 3.6 (0.9-1.1); Prothrombin Time 32.2 sec (9.1-11.1)
== END 2023-03-08 02:43 | disposition home or self-care (01) ==
LOC: LOS 02:42
PROVIDERS: PCP Family Medicine; Visit Provider Family Medicine
DX: I48.0 Paroxysmal atrial fibrillation (principal); Z79.01 Long term (current) use of anticoagulants
CPT/HCPCS: 36415; 85610

== ENCOUNTER 2023-03-14 03:41 | Outpatient (CLI) | payer OTHER, SELFPAY ==
[2023-03-14 12:35] LABS: INR 2.4 (0.9-1.1); Prothrombin Time 22.4 sec (9.1-11.1)
== END 2023-03-14 03:42 | disposition home or self-care (01) ==
LOC: LOS 03:42
PROVIDERS: PCP Family Medicine; Visit Provider Family Medicine
DX: I48.0 Paroxysmal atrial fibrillation (principal)
CPT/HCPCS: 36415; 85610

== ENCOUNTER 2023-03-29 02:35 | Outpatient (CLI) | payer OTHER, SELFPAY ==
[2023-03-29 12:29] LABS: INR 2.5 (0.9-1.1); Prothrombin Time 22.9 sec (9.1-11.1)
== END 2023-03-29 02:36 | disposition home or self-care (01) ==
LOC: LOS 02:35
PROVIDERS: PCP Family Medicine; Visit Provider Family Medicine
DX: I48.0 Paroxysmal atrial fibrillation (principal)
CPT/HCPCS: 36415; 85610

== ENCOUNTER 2023-04-26 04:57 | Outpatient (CLI) | payer OTHER, SELFPAY ==
[2023-04-26 12:44] LABS: INR 2.3 (0.9-1.1); Prothrombin Time 21.9 sec (9.1-11.1)
== END 2023-04-26 04:58 | disposition home or self-care (01) ==
LOC: LOS 04:57
PROVIDERS: PCP Family Medicine; Visit Provider Family Medicine
DX: I48.0 Paroxysmal atrial fibrillation (principal); Z79.01 Long term (current) use of anticoagulants
CPT/HCPCS: 36415; 85610

== ENCOUNTER 2023-05-24 05:09 | Outpatient (CLI) | payer OTHER, SELFPAY ==
[2023-05-24 13:05] LABS: INR 2.1 (0.9-1.1); Prothrombin Time 19.6 sec (9.1-11.1)
== END 2023-05-24 05:10 | disposition home or self-care (01) ==
PROVIDERS: PCP Family Medicine; Visit Provider Family Medicine
DX: I48.0 Paroxysmal atrial fibrillation (principal); Z79.01 Long term (current) use of anticoagulants
CPT/HCPCS: 36415; 85610

== ENCOUNTER 2023-06-27 05:48 | Outpatient (CLI) | payer OTHER, SELFPAY ==
[2023-06-27 12:25] LABS: INR 2.3 (0.9-1.1); Prothrombin Time 21.8 sec (9.1-11.1)
== END 2023-06-27 05:49 | disposition home or self-care (01) ==
LOC: LOS 05:48
PROVIDERS: PCP Family Medicine; Visit Provider Family Medicine
DX: I48.0 Paroxysmal atrial fibrillation (principal)
CPT/HCPCS: 36415; 85610

== ENCOUNTER → 2023-07-11 14:09 | Outpatient (BNVA) | payer OTHER, SELFPAY | PROVIDERS: PCP Family Medicine; Visit Provider Urology | DX: N40.1 Benign prostatic hyperplasia with lower urinary tract symptoms (principal); R39.15 Urgency of urination | CPT/HCPCS: 99213 ==

== ENCOUNTER 2023-08-09 04:53 | Outpatient (CLI) | payer OTHER, SELFPAY | END 2023-08-09 04:54 | disposition home or self-care (01) | LOC: LOS 04:53 | PROVIDERS: PCP Family Medicine; Visit Provider Family Medicine | DX: I48.0 Paroxysmal atrial fibrillation (principal); Z79.01 Long term (current) use of anticoagulants | CPT/HCPCS: 36415; 85610 ==

== ENCOUNTER 2023-10-05 04:27 | Outpatient (CLI) | payer OTHER, SELFPAY ==
[2023-10-05 14:38] LABS: Prothrombin Time 23.6 sec (9.1-11.1)
[2023-10-05 14:55] LABS: INR 2.5 (0.9-1.1)
== END 2023-10-05 04:28 | disposition home or self-care (01) ==
LOC: LOS 04:27
PROVIDERS: PCP Family Medicine; Visit Provider Family Medicine
DX: I48.0 Paroxysmal atrial fibrillation (principal)
CPT/HCPCS: 36415; 85610

== ENCOUNTER 2023-11-02 03:47 | Outpatient (CLI) | payer OTHER, SELFPAY ==
[2023-11-02 12:47] LABS: INR 1.9 (0.9-1.1); Prothrombin Time 17.7 sec (9.1-11.1)
== END 2023-11-02 03:48 | disposition home or self-care (01) ==
LOC: LOS 03:48
PROVIDERS: PCP Family Medicine; Visit Provider Family Medicine
DX: I48.0 Paroxysmal atrial fibrillation (principal)
CPT/HCPCS: 36415; 85610

== ENCOUNTER 2023-11-30 02:59 | Outpatient (CLI) | payer OTHER, SELFPAY ==
[2023-11-30 12:33] LABS: INR 1.7 (0.9-1.1); Prothrombin Time 16.4 sec (9.1-11.1)
== END 2023-11-30 03:00 | disposition home or self-care (01) ==
LOC: LOS 02:59
PROVIDERS: PCP Family Medicine; Visit Provider Family Medicine
DX: I48.0 Paroxysmal atrial fibrillation (principal)
CPT/HCPCS: 36415; 85610

== ENCOUNTER 2023-12-15 11:44 | Outpatient (CLI) | payer OTHER, SELFPAY ==
[2023-12-15 13:01] LABS: INR 2.1 (0.9-1.1); Prothrombin Time 19.6 sec (9.1-11.1)
== END 2023-12-15 11:45 | disposition home or self-care (01) ==
LOC: LOS 11:45
PROVIDERS: PCP Family Medicine; Visit Provider Family Medicine
DX: I48.0 Paroxysmal atrial fibrillation (principal)
CPT/HCPCS: 36415; 85610

== ENCOUNTER 2024-01-04 02:00 | Outpatient (CLI) | payer OTHER, SELFPAY ==
[2024-01-04 14:08] LABS: INR 2.3 (0.9-1.1); Prothrombin Time 21.2 sec (9.1-11.1)
== END 2024-01-04 02:01 | disposition home or self-care (01) ==
LOC: LOS 02:00
PROVIDERS: PCP Family Medicine; Visit Provider Family Medicine
DX: I48.0 Paroxysmal atrial fibrillation (principal)
CPT/HCPCS: 36415; 85610

== ENCOUNTER 2024-01-30 02:24 | Outpatient (CLI) | payer OTHER, SELFPAY ==
[2024-01-30 12:39] LABS: INR 2.8 (0.9-1.1); Prothrombin Time 26.1 sec (9.1-11.1)
== END 2024-01-30 02:25 | disposition home or self-care (01) ==
LOC: LOS 02:25
PROVIDERS: PCP Family Medicine; Visit Provider Family Medicine
DX: I48.0 Paroxysmal atrial fibrillation (principal)
CPT/HCPCS: 36415; 85610

== ENCOUNTER 2024-03-06 03:19 | Outpatient (CLI) | payer MEDICARE, SELFPAY ==
[2024-03-06 11:08] LABS: INR 2.4 (0.9-1.1); Prothrombin Time 22.3 sec (9.1-11.1)
== END 2024-03-06 03:20 | disposition home or self-care (01) ==
LOC: LOS 03:19
PROVIDERS: PCP Family Medicine; Visit Provider Family Medicine
DX: I48.0 Paroxysmal atrial fibrillation (principal); Z00.00 Encounter for general adult medical examination without abnormal findings
CPT/HCPCS: 36415; 85610

== ENCOUNTER 2024-04-10 02:25 | Outpatient (CLI) | payer MEDICARE, SELFPAY ==
[2024-04-10 12:36] LABS: Prothrombin Time 20.5 sec (9.1-11.1)
[2024-04-10 12:38] LABS: INR 2.1 (0.9-1.1)
== END 2024-04-10 02:26 | disposition home or self-care (01) ==
LOC: LOS 02:25
PROVIDERS: PCP Family Medicine; Visit Provider Family Medicine
DX: I48.0 Paroxysmal atrial fibrillation (principal)
CPT/HCPCS: 36415; 85610

== ENCOUNTER 2024-05-14 02:39 | Outpatient (CLI) | payer MEDICARE, SELFPAY ==
[2024-05-14 12:53] LABS: INR 2.2 (0.9-1.1); Prothrombin Time 20.7 sec (9.1-11.1)
== END 2024-05-14 02:40 | disposition home or self-care (01) ==
LOC: LOS 02:39
PROVIDERS: PCP Family Medicine; Visit Provider Family Medicine
DX: I48.0 Paroxysmal atrial fibrillation (principal)
CPT/HCPCS: 36415; 85610

== ENCOUNTER 2024-07-04 01:39 | Outpatient (CLI) | payer MEDICARE, SELFPAY ==
[2024-07-04 12:57] LABS: INR 2.9 (0.9-1.1); Prothrombin Time 26.9 sec (9.1-11.1)
== END 2024-07-04 01:40 | disposition home or self-care (01) ==
LOC: LOS 01:39
PROVIDERS: PCP Family Medicine; Visit Provider Family Medicine
DX: I48.0 Paroxysmal atrial fibrillation (principal)
CPT/HCPCS: 36415; 85610

== ENCOUNTER → 2024-07-09 14:13 | Outpatient (BNVA) | payer MEDICARE, SELFPAY | PROVIDERS: PCP Family Medicine; Visit Provider Urology | DX: N40.1 Benign prostatic hyperplasia with lower urinary tract symptoms (principal); R39.9 Unspecified symptoms and signs involving the genitourinary system; Z79.01 Long term (current) use of anticoagulants | CPT/HCPCS: 99214; 51798 ==

== ENCOUNTER 2024-09-04 02:51 | Outpatient (CLI) | payer MEDICARE, SELFPAY ==
[2024-09-04 13:02] LABS: ALT 19 U/L (16-63); AST 18 U/L (15-37); Albumin 3.5 g/dL (3.4-5.0); Alkaline Phosphatase 115 U/L (46-116); Anion Gap 11.4 mmol/L (3-11); BUN 13 mg/dL (7-18); Bilirubin, Total 0.3 mg/dL (0.2-1.0); CO2 28.6 mmol/L (21.0-32.0); Calcium 9.6 mg/dL (8.5-10.1); Chloride 104 mmol/L (98-107); Estimated GFR 67.44 (mL/min/1.73m2); Glucose 85 mg/dL (74-106); Potassium 3.6 mmol/L (3.5-5.1); Sodium 144 mmol/L (136-145); Total Protein 7.5 g/dL (6.4-8.2)
[2024-09-04 13:40] LABS: INR 3.7 (0.9-1.1); Prothrombin Time 33.6 sec (9.1-11.1)
[2024-09-04 18:27] LABS: PSA, Diagnostic 3.0 ng/mL (<=6.5)
== END 2024-09-04 02:52 | disposition home or self-care (01) ==
LOC: LOS 02:51
PROVIDERS: Urology; PCP Family Medicine; Visit Provider Family Medicine
DX: R97.20 Elevated prostate specific antigen [PSA] (principal); N40.0 Benign prostatic hyperplasia without lower urinary tract symptoms; N40.1 Benign prostatic hyperplasia with lower urinary tract symptoms; I48.0 Paroxysmal atrial fibrillation
CPT/HCPCS: 36415; 80053; 84153; 85610

== ENCOUNTER 2024-09-12 10:49 | Outpatient (CLI) | payer MEDICARE, SELFPAY ==
[2024-09-12 12:48] LABS: INR 2.5 (0.9-1.1); Prothrombin Time 23.9 sec (9.1-11.1)
== END 2024-09-12 10:50 | disposition home or self-care (01) ==
LOC: LOS 10:50
PROVIDERS: PCP Family Medicine; Visit Provider Family Medicine
DX: I48.0 Paroxysmal atrial fibrillation (principal)
CPT/HCPCS: 36415; 85610

== ENCOUNTER 2024-09-26 04:41 | Outpatient (CLI) | payer MEDICARE, SELFPAY ==
[2024-09-26 12:55] LABS: INR 1.6 (0.9-1.1); Prothrombin Time 15.9 sec (9.1-11.1)
== END 2024-09-26 04:42 | disposition home or self-care (01) ==
LOC: LOS 04:41
PROVIDERS: PCP Family Medicine; Visit Provider Family Medicine
DX: I48.0 Paroxysmal atrial fibrillation (principal)
CPT/HCPCS: 36415; 85610

== ENCOUNTER 2024-10-03 03:46 | Outpatient (CLI) | payer MEDICARE, SELFPAY ==
[2024-10-03 12:30] LABS: INR 2.2 (0.9-1.1); Prothrombin Time 20.9 sec (9.1-11.1)
== END 2024-10-03 03:47 | disposition home or self-care (01) ==
LOC: LOS 03:47
PROVIDERS: PCP Family Medicine; Visit Provider Family Medicine
DX: I48.0 Paroxysmal atrial fibrillation (principal)
CPT/HCPCS: 36415; 85610

== ENCOUNTER 2024-10-16 02:25 | Outpatient (CLI) | payer MEDICARE, SELFPAY ==
[2024-10-16 12:45] LABS: INR 3.1 (0.9-1.1); Prothrombin Time 28.5 sec (9.1-11.1)
== END 2024-10-16 02:26 | disposition home or self-care (01) ==
LOC: LOS 02:25
PROVIDERS: PCP Family Medicine; Visit Provider Family Medicine
DX: I48.0 Paroxysmal atrial fibrillation (principal)
CPT/HCPCS: 36415; 85610

== ENCOUNTER 2024-10-19 14:29 | Inpatient (IN) | payer MEDICARE, SELFPAY ==
[2024-10-19] VITALS (32 sets, daily range): BP systolic 103–155; BP diastolic 45–104; PULSE 69–102; RESP 16–33; TEMP 37.1–38.8; O2SAT 91–98
--- NOTE | 2024-10-19 14:30 | RT.EKG_ITS ---
APPROVED REPORT Exam: Resting ECG Reason for Exam: weakness Patient Location: E HR:98 bpm ECG Measurements Heart Rate 98 AXIS MS 136 P 115 QRSd 89 QRS 131 QT 357 T 84 QTc 450 Conclusion Sinus rhythm...normal P axis, V-rate 60- 99 Atrial premature complexes...SV complexes w/ short R-R intvls Right axis deviation...QRS axis ( 97,305)
--- NOTE | 2024-10-19 14:45 | DI.RAD_ITS ---
Exam(s) XR PORTABLE CHEST AP EXAM: XR PORTABLE CHEST AP CLINICAL HISTORY: Weakness TECHNIQUE: 2D digital imaging was performed of the chest. Two images were obtained. AP views were obtained. COMPARISON: CR CHEST 2 VIEWS PA,LAT from 02/02/2015 CR CHEST 2 VIEWS PA,LAT from 10/12/2016 CR CHEST 2 VIEWS PA,LAT from 10/19/[address] CHEST LUNG CANCER SCREEN from 01/25/2022 FINDINGS: MEDIASTINUM: Normal. HEART: Normal. PULMONARY VASCULATURE: Normal. LUNGS: There is an opacity in the right lung base with air bronchograms suspicious for pneumonia. The left lung is clear. The lungs are hyperinflated with flattened diaphragms consistent with underlying COPD. PLEURAL SPACE: No pleural effusion or pneumothorax. BONE:Within normal limits for the patient's age. OTHER FINDINGS:Normal. IMPRESSION: Right basilar opacity suspicious for pneumonia. DATA REPOSITORY: RADIATION DOSE DELIVERED:
[2024-10-19 15:06] LABS: Abs Immature Grans 0.09 10^3/uL (0.0-0.06); HCT 40.7 % (40.0-50.0); HGB 13.2 g/dL (13.5-17.5); Immature Grans % 0.5 %; MCH 28.9 pg (27.0-33.0); MCHC 32.4 % (32.0-36.0); MCV 89 fL (80-95); MPV 9.4 fL (8.0-11.0); Platelet Count 201 10^3/uL (130-400); RBC 4.57 10^6/uL (4.36-5.78); RDW 12.6 % (11.8-14.1); RDW-SD 41.0 fL; WBC 19.27 10^3/uL (4.4-10.8)
--- NOTE | 2024-10-19 15:08 | ED.GENADUL_ITS ---
Discharge Plan Disposition Patient Disposition: Admit to [facility] Discharge Details Clinical Impression: Right lower lobe pneumonia, Sepsis, Fever Primary Care Provider: Buster Breaux ED Provider: Hayden Felder Home Meds and New Rx's Prescriptions: No Action bisoprolol fumarate 5 mg tablet 5 mg PO DAILY Qty: 90 4RF warfarin 5 mg tablet 5 mg PO DAILY Qty: 90 6RF Protocol: Dose Management Condition: Monday Dose/Route: 2.5 mg Instruction: 0.5 x 5 mg tablets Condition: Monday Dose/Route: 2.5 mg Instruction: 0.5 x 5 mg tablets Condition: Monday Dose/Route: 2.5 mg Instruction: 0.5 x 5 mg tablets Condition: Monday Dose/Route: 2.5 mg Instruction: 0.5 x 5 mg tablets Condition: Dose/Route: 2.5 mg Instruction: 0.5 x 5 mg tablets Condition: Monday Dose/Route: 5 mg Instruction: 1 x 5 mg tablet Condition: Monday Dose/Route: 2.5 mg Instruction: 0.5 x 5 mg tablets Protocol Text: Adjustment Start Date: Monday10/16/24 INR Value: 3.1 INR Date: 10/16/24 Recheck Date: 10/23/24 Rx Instructions: 5 mg mon, mon , mon, mon, 2.5 mg on the rest of days Anoro Ellipta 62.5-25 mcg/actuation blister with device 1 inh inhalation DAILY Qty: 30 11RF diltiazem HCl [Tiadylt ER] 360 mg capsule,extended release 24hr 360 mg PO DAILY Qty: 90 3RF HPI General Date/Time Provider Initiated Documentation: 10/19/24 14:33 . HPI Narrative: MDM/Narrative: Initial Assessment: 84-year-old male with COPD, presenting with generalized weakness and reported fever by EMS. Differential Diagnosis: - Sepsis: Broad-spectrum antibiotics (cefepime, vancomycin), blood cultures, 2 L fluid resuscitation. - Respiratory infection: Given right upper chest pain, antibiotics initiated. - ACS: Monitor and evaluate due to chest pain. - Pulmonary embolus: Unlikely due to warfarin compliance, consider if no obvious cause of pain found. ED Course: - Blood cultures obtained. - Antibiotics (cefepime, vancomycin) administered. - 2 L fluid resuscitation started. 1710 Results reviewed, notable for leukocytosis, hypomagensemia, no evidence of organ dysfunction. CXR consistent with RLL PNA. Case discussed with Dr. Hernandez who will admit the patient for further management. Final Assessment: Blood cultures obtained, antibiotics administered, fluid resuscitation initiated. Evaluating for sepsis, respiratory infection, ACS, and pulmonary embolus. Clinical Impression: - Sepsis - Respiratory infection - ACS Disposition: Admission for further evaluation and treatment. This document was created with assistance from [employer]. The patient consented to its use. Disposition: Admit to [facility] HPI: The patient, an 84-year-old male with a history of chronic obstructive pulmonary disease (COPD), presents with asthenia since October 19, 2024. He reports a sudden onset of weakness accompanied by right-sided discomfort, which is exacerbated by movement and pressure. His temperature was recorded at 99.9?F, with emergency medical services noting a temperature of 101.4?F. The patient has not taken any medication for these symptoms. He denies experiencing cough, abdominal pain, leg edema, or chest pain, aside from the aforementioned right- sided discomfort. The patient has a history of smoking, consuming 4-5 cigarettes per day, and reports dyspnea associated with smoking. He is uncertain whether he has taken all his prescribed medications today. He is currently on warfarin therapy, with recent blood work indicating normal results. ROS: Negative besides as mentioned above Exam: Vital signs: Reviewed. General Appearance: Mild distress. HEENT: NCAT, EOMI, not icteric. External ears normal. No rhinorrhea. Moist mucous membranes. Neck: Supple, full range of motion, no observable masses, No meningeal sign. Respiratory: Crackles in right upper lung field. Otherwise no significant wheezing or rhonchi Cardiovascular: Elevated heart rate. Gastrointestinal: No abdominal tenderness. Skin: Warm to touch. Neurological: Normal Gait, Grossly intact. Psychiatric: Appropriate for situation. Rhythm: NSR Rate: 98 bpm [place]: Rightward axis axis Intervals: Normal intervals Other findings: No acute ST segment or T wave changes to suggest acute ischemia. Labs: 08/30/25 15:15 Urine - Reflex from Ua Urine Culture - Pending 10/19/24 15:30 Blood Blood Culture - Pending 10/19/24 14:52 Blood Blood Culture - Pending Laboratory Tests Range/Units 10/19/24 10/19/24 10/19/24 14:52 15:15 15:45 WBC (4.4-10.8) 10^3/uL 19.27 H RBC (4.36-5.78) 10^6/uL 4.57 Hgb (13.5-17.5) g/dL 13.2 L Hct (40.0-50.0) % 40.7 MCV (80-95) fL 89 MCH (27.0-33.0) pg 28.9 MCHC (32.0-36.0) % 32.4 RDW (11.8-14.1) % 12.6 Plt Count (130-400) 10^3/uL 201 MPV (8.0-11.0) fL 9.4 Immature Gran % % 0.5 Neutrophils % % 92.2 Lymphocytes % % 1.7 Monocytes % % 5.4 Eosinophils % % 0.0 Basophils % % 0.2 Nucleated RBC % (0.0-0.3) % 0.0 Absolute Neutrophils (1.2-6.7) 10^3/uL 17.77 H Absolute Lymphocytes (1.2-3.4) 10^3/uL 0.33 L Absolute Monocytes (0.1-0.8) 10^3/uL 1.04 H Absolute Eosinophils (0.0-0.7) 10^3/uL 0.00 Absolute Basophils (0.0-0.2) 10^3/uL 0.04 Sodium (136-145) mmol/L 142 Potassium (3.5-5.1) mmol/L 4.1 Chloride (98-107) mmol/L 105 Carbon Dioxide (21.0-32.0) mmol/L 28.6 Anion Gap (3-11) mmol/L 8.4 BUN (7-18) mg/dL 12 Creatinine (0.70-1.30) mg/dL 1.3 Est GFR (CKD-EPI 2020) (mL/min/1.73m2) 54.85 Glucose (74-106) mg/dL 108 H Calcium (8.5-10.1) mg/dL 9.5 Magnesium (1.8-2.4) mg/dL 1.6 L Total Bilirubin (0.2-1.0) mg/dL 0.4 AST (15-37) U/L 25 ALT (16-63) U/L 16 Alkaline Phosphatase (46-116) U/L 110 Troponin I (<or=76) ng/L 26 26 Total Protein (6.4-8.2) g/dL 7.7 Albumin (3.4-5.0) g/dL 3.6 Procalcitonin ng/mL 2.90 Urine Color (Yellow) Yellow Urine Clarity (Clear) Clear Urine pH (5-8) 7.0 Ur Specific [place] (1.005-1.025) 1.015 Urine Protein (Neg-Trace) mg/dL 30 H Urine Ketones (Negative) mg/dL Trace H Urine Blood (Negative) Moderate H Urine Nitrite (Negative) Negative Urine Bilirubin (Negative) Negative Urine Urobilinogen (Up to 0.2) mg/dL 1.0 H Ur Leukocyte Esterase (Negative) Small H Urine RBC (0-2) HPF 10-20 H Urine WBC (0-5) HPF 10-20 H Ur Epithelial Cells (Negative) HPF Rare Urine Crystals (Negative) HPF Negative Urine Bacteria (Negative) HPF Rare Urine Casts (Negative) LPF Negative Urine Mucus (Negative) Trace Ur Culture Indicated? Yes Urine Glucose (Negative) mg/dL Negative Radiology: Exam(s) XR PORTABLE CHEST AP EXAM: XR PORTABLE CHEST AP CLINICAL HISTORY: Weakness TECHNIQUE: 2D digital imaging was performed of the chest. Two images were obtained. AP views were obtained. COMPARISON: CR CHEST 2 VIEWS PA,LAT from 02/02/2015 CR CHEST 2 VIEWS PA,LAT from 10/12/2016 CR CHEST 2 VIEWS PA,LAT from 10/19/[address] CHEST LUNG CANCER SCREEN from 01/25/2022 FINDINGS: MEDIASTINUM: Normal. HEART: Normal. PULMONARY VASCULATURE: Normal. LUNGS: There is an opacity in the right lung base with air bronchograms suspicious for pneumonia. The left lung is clear. The lungs are hyperinflated with flattened diaphragms consistent with underlying COPD. PLEURAL SPACE: No pleural effusion or pneumothorax. BONE:Within normal limits for the patient's age. OTHER FINDINGS:Normal. IMPRESSION: Right basilar opacity suspicious for pneumonia. DATA REPOSITORY: RADIATION DOSE DELIVERED: Related Data Home Medications ?Medication ?Instructions ?Recorded ?Confirmed umeclidinium 62.5 mcg-vilanterol 1 inh inhalation LINDA Y #30 06/20/23 01/30/24 25 mcg/actuation powdr for inhalations inhalation (Anoro Ellipta) bisoprolol fumarate 5 mg tablet 5 mg PO DAILY atrial f ibrillation 01/30/24 07/11/24 #90 tabs warfarin 5 mg tablet 5 mg PO DAILY #90 tab-caps 1 04/01/23 07/11/24 diltiazem HCl 360 mg capsule,24 360 mg PO DAILY #90 ca ps 06/03/24 07/11/24 hr,extended release (Tiadylt ER) mirabegron 50 mg tablet,extended 50 mg PO DAILY 10/19/24 release 24 hr (Myrbetriq) Previous Rx's ?Medication ?Instructions ?Recorded umeclidinium 62.5 mcg-vilanterol 1 inh inhalation LINDA Y #30 06/20/23 25 mcg/actuation powdr for inhalations inhalation (Anoro Ellipta) bisoprolol fumarate 5 mg tablet 5 mg PO DAILY atrial f ibrillation 01/30/24 #90 tabs warfarin 5 mg tablet 5 mg PO DAILY #90 tab-caps 1 04/01/23 diltiazem HCl 360 mg capsule,24 360 mg PO DAILY #90 ca ps 06/03/24 hr,extended release (Tiadylt ER) Allergies Allergy/AdvReac Type Severity Reaction Status Date / Time metoprolol AdvReac Mild DIARRHEA Verified 10/19/24 17:19 General Stated Complaint: AMS/LOC KELLI: 3 Course Vital Signs Vital signs: Vital Signs Temperature 37.7 C H 10/19/24 14:36 Pulse 90 10/19/24 14:36 Respiratory Rate 27 H 10/19/24 14:36 Blood Pressure 136/45 L 10/19/24 14:36 Pulse Oximetry 94 10/19/24 14:36 Temperature 37.7 C H 10/19/24 14:46 Temperature Source Oral 10/19/24 14:36 Pulse 90 10/19/24 14:46 Respiratory Rate 27 H 10/19/24 14:46 Respiratory Effort Normal 10/19/24 14:56 Blood Pressure 136/45 L 10/19/24 14:46 Blood Pressure Position Supine 10/19/24 14:36 Pulse Oximetry 94 10/19/24 14:46 Oxygen Delivery Method Room Air 10/19/24 14:46 Oxygen Flow Rate 0 10/19/24 14:36 Pain Level 0 10/19/24 14:46 Lab/Test Results Lab/Test Results: 10/19/24 14:52 Blood Blood Culture - Pending 10/19/24 14:57 Blood Blood Culture - Pending Laboratory Tests Range/Units 10/19/24 14:52 WBC (4.4-10.8) 10^3/uL 19.27 H RBC (4.36-5.78) 10^6/uL 4.57 Hgb (13.5-17.5) g/dL 13.2 L Hct (40.0-50.0) % 40.7 MCV (80-95) fL 89 MCH (27.0-33.0) pg 28.9 MCHC (32.0-36.0) % 32.4 RDW (11.8-14.1) % 12.6 Plt Count (130-400) 10^3/uL 201 MPV (8.0-11.0) fL 9.4 Immature Gran % % 0.5 Neutrophils % % 92.2 Lymphocytes % % 1.7 Monocytes % % 5.4 Eosinophils % % 0.0 Basophils % % 0.2 Nucleated RBC % (0.0-0.3) % 0.0 Absolute Neutrophils (1.2-6.7) 10^3/uL 17.77 H Absolute Lymphocytes (1.2-3.4) 10^3/uL 0.33 L Absolute Monocytes (0.1-0.8) 10^3/uL 1.04 H Absolute Eosinophils (0.0-0.7) 10^3/uL 0.00 Absolute Basophils (0.0-0.2) 10^3/uL 0.04 PFSH All Active Problems (Updated 10/19/24 @ 17:17 by Hayden Felder MD) Fever (Acute) Sepsis (Acute) Right lower lobe pneumonia (Acute) Nicotine dependence, cigarettes, uncomplicated (Acute) Elevated liver enzymes (Acute) Nicotine dependence (Acute) 06/2021- 4-6 cig/day, 52 plus yr pk yr Benign prostate hyperplasia (Chronic) Status post TURP, associated elevated PSA, followed by urology at [facility] Anemia (Chronic) Multiple thyroid nodules (Acute) 06/2021-thyroid ultrasound at [facility]-several small stable nodules by ultrasound, no interval change, no further follow-up needed COPD (chronic obstructive pulmonary disease) (Chronic) Paroxysmal atrial fibrillation (Acute) On Coumadin goal INR 2-3 POLST (Physician Orders for Life-Sustaining Treatment) (Acute) Chronic anticoagulation (Acute) Benign non-nodular prostatic hyperplasia with lower urinary tract symptoms (Acute 12/10/14) SVT (supraventricular tachycardia) (Acute 02/27/15) Holter : multiple SVT/long duration/intol. 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 Paternal Grandfather No problems noted. Son Prostate cancer Stage IV Father Dementia Sister No problems noted. Brother No problems noted. Social History (Updated 01/30/24 @ 14:22 by Chloe Schreiber) Smoking/Tobacco Use Status: Current-Occasional Tobacco Type: cigarettes Tobacco: How many years used: 67 Quit status: not considering quitting Second Hand Exposure: Yes Smoking risk assessment performed?: Yes Alcohol Intake: former Year quit: 1983 Counseling given: No Drug use: Never Substance use type: does not use Counseling given: No Adopted: No Caregiver/Support person: No Household members: spouse Housing: house Number of Children: 6 number of grandchildren: 6 Communication Needs: Hard of Hearing Education Level: high school Do you need help understanding health information?: Rarely current occupation: Retired Pets and animals: No Sexually active: No Do you think of yourself as: straight/heterosexual Current gender identity: male What is your relationship status?: How often do you talk on the phone with friends or family?: once per week How often do you get together with friends or relatives?: decline to answer How often do you attend yarsani or bahai services?: decline to answer Do you belong to any clubs or organized social groups?: no Panel score (0-1 are the most socially isolated patients): 1 Evy/Advent: Non mormon Agree to transfusion: No Seatbelt use: always Helmet use: No Drive intox or ride w/intox funeral car 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
[2024-10-19 15:26] LABS: ALT 16 U/L (16-63); AST 25 U/L (15-37); Albumin 3.6 g/dL (3.4-5.0); Alkaline Phosphatase 110 U/L (46-116); Anion Gap 8.4 mmol/L (3-11); BUN 12 mg/dL (7-18); Bilirubin, Total 0.4 mg/dL (0.2-1.0); CO2 28.6 mmol/L (21.0-32.0); Calcium 9.5 mg/dL (8.5-10.1); Chloride 105 mmol/L (98-107); Estimated GFR 54.85 (mL/min/1.73m2); Glucose 108 mg/dL (74-106); Magnesium 1.6 mg/dL (1.8-2.4); Potassium 4.1 mmol/L (3.5-5.1); Sodium 142 mmol/L (136-145); Total Protein 7.7 g/dL (6.4-8.2); Troponin I 26 ng/L (<or=76)
[2024-10-19 15:32] LABS: Glucose Negative (Negative)
[2024-10-19] MEDS: CEFEPIME 1 GM in Normal Saline 50 ML IVPB (15:41)
[2024-10-19] MEDS: VANCOMYCIN 750 MG in Normal Saline 250 ML 166.6666 MG IVPB (15:43)
[2024-10-19] MEDS: Lactated Ringers 500 ML 1000 ML IV (15:44)
[2024-10-19 15:47] LABS: C & S Indicated? Yes
[2024-10-19 15:48] LABS: Procalcitonin 2.90 ng/mL
[2024-10-19 16:14] LABS: Troponin I 26 ng/L (<or=76)
[2024-10-19] MEDS: ACETAMINOPHEN 1,000 MG/100 ML BAG 400 MG (16:24)
[2024-10-19] MEDS: Lactated Ringers 1,000 ML 2000 ML IV (17:07)
[2024-10-19] MEDS: dilTIAZem CD 180 MG CAPCR 360 MG PO (17:51)
[2024-10-19] MEDS: Warfarin 5 MG TAB 2.5 MG PO (17:52)
--- NOTE | 2024-10-19 18:12 | HPE_ITS ---
Date of service: 10/19/24 Time of Service: 18:12 Assessment and Plan Assessment and plan (1) Right lower lobe pneumonia: Status: Acute Assessment and plan: Community acquired. High risk with age, COPD, sepsis, admission indicated. No known history/clear risk factors for pseudomonas/MRSA. Does not meet severe criteria. Get MRSA screen, but if negative treat with ceftriaxone and doxy, will not continue vanco. Send legionella Ag with recent cases in community. He doesn't have a lot of symtpoms, UTI is possible other source of sepsis. Consider CT chest to clarify infiltrate, especially with smoking/underweight with malignancy risk. Full Code. Warfarin for DVT prophylaxis. (2) Sepsis: Status: Acute Assessment and plan: Met criteria with fever, WBC, RR and pneumonia as above Appropriately fluid recuscutated. Blood cx sent. (3) Urinary tract infection: Status: Inactive Assessment and plan: possible alternative cause of sepsis. He does have frequency and anterior flank pain could be from right kidney rather than RLL infiltrate. Ceftriaxone will cover both. Culture pending. (4) COPD (chronic obstructive pulmonary disease): Status: Chronic Assessment and plan: Not clearly exacerbated. COntinue LAMA, add oral steroid if developes wheezing/hypoxia (5) Paroxysmal atrial fibrillation: Status: Acute Assessment and plan: on warfarin and bisoprolol/diltiazem. Need INR today, follow on antibiotics. Was 3.1 three days ago. (6) Underweight: Status: Acute Assessment and plan: 48lb weight was spurious, but at 58kg he still has BMI around 18.5m2/kg. This raises risk of lung disease. We discussed nutrition. Get nutrition help when available. (7) Nicotine dependence: Status: Acute Assessment and plan: nrt prn History of Present Illness History of Present Illness Chief Complaint: fatigue Narrative: 84 yo M with active smoking, history of COPD, pAfib on warfarin who presented with acute onset of general fatigue and malaise associated with pleauritic pain in the right lower chest. He woke up this morning and had no energy. Hard to get out of bed. Didn't eat or drink much, but did have half a sandwich for lunch. He had one loose stool this morning, no blood/black. No cough, sputum, or hemoptysis. He has noted sharp pain in right lower ribs/upper abdomen that is worse when he breaths. Doesn't feel SOB at rest but hasn't been able to do much today. Has a runny nose, but this is chronic. No sore throat or headache. No fever/chills. Hasn't tried inhalers. Not dizzy, no palpitations. No nausea/vomiting. No change in urination, he urinates a long chronically. He does feel a little better after IV fluids but he is still exhausted. He does state he has lost weight this year, just not hungry. Not sure how many pounds. cooks for him. His mood has been okay. cooks for him. Review of Systems All systems reviewed & are unremarkable except as noted in HPI and below PFSH All Active Problems (Updated 10/19/24 @ 18:24 by Ildefonso Hernandez) Underweight (Acute) Fever (Acute) Sepsis (Acute) Right lower lobe pneumonia (Acute) Nicotine dependence, cigarettes, uncomplicated (Acute) Elevated liver enzymes (Acute) Nicotine dependence (Acute) 06/2021- 4-6 cig/day, 50 plus yr pk yr Benign prostate hyperplasia (Chronic) Status post TURP, associated elevated PSA, followed by urology at [facility] Anemia (Chronic) Multiple thyroid nodules (Acute) 06/2021-thyroid ultrasound at [facility]-several small stable nodules by ultrasound, no interval change, no further follow-up needed COPD (chronic obstructive pulmonary disease) (Chronic) Paroxysmal atrial fibrillation (Acute) On Coumadin goal INR 2-3 POLST (Physician Orders for Life-Sustaining Treatment) (Acute) Chronic anticoagulation (Acute) Benign non-nodular prostatic hyperplasia with lower urinary tract symptoms (Acute 12/10/14) SVT (supraventricular tachycardia) (Acute 02/27/15) Holter : multiple SVT/long duration/intol. 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 Paternal Grandfather No problems noted. Son Prostate cancer Stage IV Father Dementia Sister No problems noted. Brother No problems noted. Social History (Updated 10/19/24 @ 20:19 by Ildefonso Hernandez) Smoking/Tobacco Use Status: Current-Occasional Tobacco Type: cigarettes Tobacco: How many years used: 65 Quit status: not considering quitting Second Hand Exposure: Yes Smoking risk assessment performed?: Yes Alcohol Intake: former Year quit: 1983 Counseling given: No Drug use: Never Substance use type: does not use Counseling given: No Adopted: No Caregiver/Support person: No Household members: spouse Housing: house Number of Children: 6 number of grandchildren: 6 Communication Needs: Hard of Hearing Education Level: high school Do you need help understanding health information?: Rarely current occupation: Retired Pets and animals: No Sexually active: No Do you think of yourself as: straight/heterosexual Current gender identity: male What is your relationship status?: How often do you talk on the phone with friends or family?: once per week How often do you get together with friends or relatives?: decline to answer How often do you attend bahai or quaker services?: decline to answer Do you belong to any clubs or organized social groups?: no Panel score (0-1 are the most socially isolated patients): 1 Evy/Protestant: Non sikh Agree to transfusion: No Seatbelt use: always Helmet use: No Drive intox or ride w/intox 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 with his Meds Allergies and Home Medications Allergies Allergy/AdvReac Type Severity Reaction Status Date / Time metoprolol AdvReac Mild DIARRHEA Verified 10/19/24 17:19 Home Medications ?Medication ?Instructions ?Recorded ?Confirmed ?Type umeclidinium 62.5 mcg-vilanterol 1 inh inhalation LINDA Y #30 06/20/23 10/19/24 Rx 25 mcg/actuation powdr for inhalations inhalation (Anoro Ellipta) bisoprolol fumarate 5 mg tablet 5 mg PO DAILY atrial f ibrillation 01/30/24 10/19/24 Rx #90 tabs warfarin 5 mg tablet 5 mg PO DAILY #90 tab-caps 1 04/01/23 10/19/24 Rx diltiazem HCl 360 mg capsule,24 360 mg PO DAILY #90 ca ps 06/03/24 10/19/24 Rx hr,extended release (Tiadylt ER) mirabegron 50 mg tablet,extended 50 mg PO DAILY 10/19/24 History release 24 hr (Myrbetriq) Exam Narrative Exam Narrative: GEN: Alert and oriented x 4, mildly hard of hearing. Thin to gaunt. In bed, pleasant and cooperative, gives linear history. No acute distress at rest. HEENT: Head atraumatic. Conjunctiva clear, no icterus. PEERL, EOMI. no rhinorrhea. MMM, OP benign. Neck is supple with no masses or lymphadenopathy, trachea midline LUNGS: Diffusely diminished breath sounds. I don't appreciate wheeze or rales. CV: RRR with no murmurs, gallops, or rubs. ABD: active bowel sounds, soft, nontender and nondistended. No masses. EXT: no cyanosis, clubbing, or edema, warm MSK: No joint redness or swelling. chest wall not tender NEURO: CN 2-12 grossly intact. Normal movement of 4 extremities. Normal speech and coordination. No tremor SKIN: No rashes or open wounds. PSYCH: normal mood and affect, normal thought process Results Imaging Chest x-ray: report reviewed (Right basilar opacity suspicious for pneumonia. ) EKG: report reviewed Labs 10/19/24 14:52 10/19/24 14:52 Labs: Laboratory Results - last 24 hr 10/19/24 10/19/24 10/19/24 14:52 15:15 15:45 WBC 19.27 H RBC 4.57 Hgb 13.2 L Hct 40.7 MCV 89 MCH 28.9 MCHC 32.4 RDW 12.6 Plt Count 201 MPV 9.4 Immature Gran % 0.5 Neutrophils % 92.2 Lymphocytes % 1.7 Monocytes % 5.4 Eosinophils % 0.0 Basophils % 0.2 Nucleated RBC % 0.0 Absolute Neutrophils 17.77 H Absolute Lymphocytes 0.33 L Absolute Monocytes 1.04 H Absolute Eosinophils 0.00 Absolute Basophils 0.04 Sodium 142 Potassium 4.1 Chloride 105 Carbon Dioxide 28.6 Anion Gap 8.4 BUN 12 Creatinine 1.3 Est GFR (CKD-EPI 2020) 54.85 Glucose 108 H Calcium 9.5 Magnesium 1.6 L Total Bilirubin 0.4 AST 25 ALT 16 Alkaline Phosphatase 110 Troponin I 26 26 Total Protein 7.7 Albumin 3.6 Procalcitonin 2.90 Urine Color Yellow Urine Clarity Clear Urine pH 7.0 Ur Specific [place] 1.015 Urine Protein 30 H Urine Ketones Trace H Urine Blood Moderate H Urine Nitrite Negative Urine Bilirubin Negative Urine Urobilinogen 1.0 H Ur Leukocyte Esterase Small H Urine RBC 10-20 H Urine WBC 10-20 H Ur Epithelial Cells Rare Urine Crystals Negative Urine Bacteria Rare Urine Casts Negative Urine Mucus Trace Ur Culture Indicated? Yes Urine Glucose Negative Last Vital Signs Temp 38.8 C H 10/19/24 15:19 Pulse 89 10/19/24 17:10 Resp 19 10/19/24 17:10 BP 146/49 H 10/19/24 17:00 Pulse Ox 98 10/19/24 17:10 Time Spent Time spent with Patient: 40-54 minutes Time was spent: preparing to see the patient(eg.review tests), obtaining and/or reviewing separately otained hiistory, ordering medications,tests, procedures, referring, communicating with other health resident care aide, indepentently interpreting results, counseling the patient and care coordination
[2024-10-19 18:39] LABS: INR 3.1 (0.9-1.1); Prothrombin Time 29.0 sec (9.1-11.1)
[2024-10-19 19:34] LABS: MRSA PCR Negative (Negative)
--- NOTE | 2024-10-19 20:00 | W.PC.ACHO ---
Registration Status: ADM IN Primary Language: Preferred Language: Polish ED Information & Data Chief Complaint AMS/LOC 10/19/24 15:09 Triage Note increased weakness today, no 10/19/24 14:36 changes to mental status, decreased PO intake today. BGL 117. A&O X4, symptoms started around 1045. 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) SHOULDER SURGERY HERNIA REPAIR Most Recent Vital Signs Temperature 37.3 C 10/19/24 19:20 Temperature Source Oral 10/19/24 19:20 Pulse 89 10/19/24 17:10 Pulse 95 H 10/19/24 17:10 Respiratory Rate 19 10/19/24 17:10 Respiratory Effort Normal 10/19/24 14:56 Blood Pressure 146/49 H 10/19/24 17:00 Blood Pressure Mean 80 10/19/24 17:00 Blood Pressure Position Supine 10/19/24 14:36 Pulse Oximetry 98 10/19/24 17:10 Oxygen Delivery Method Room Air 10/19/24 14:46 Oxygen Flow Rate 0 10/19/24 14:36 Pain Level 0 10/19/24 14:46 Allergies metoprolol Adverse Reaction (Mild, Verified 10/19/24 17:19) DIARRHEA intolerance Precautions Isolation Standard precaution 10/19/24 14:46 Active Medications Generic Name Dose Route Start Last Admin Trade Name Freq PRN Reason Stop Dose Admin Vancomycin HCl 750 mg/ Sodium 250 mls @ 166.6666 mls/hr 10/19/24 15:15 10/19/24 15:43 Chloride IVPB 166.6666 mls/hr Q12H MIKAELA Administration Cefepime HCl 1 gm/ Sodium 50 mls @ 100 mls/hr 10/19/24 15:15 10/19/24 16:07 Chloride IVPB Infused Q8H MIKAELA Infusion IV IV Catheter Type [Right Peripheral IV Forearm] IV Catheter Type [Left Peripheral IV Antecubital] IV Catheter Gauge [Right 20 Forearm] IV Catheter Gauge [Left 20 Antecubital] Diet Orders Category Date Time Status DIET [Regular/Normal] [DIET] Nutrition 10/19/24 Dinner Active Regular/Normal [DIET] Nutrition 10/20/24 Breakfast Ordered Diagnostics 10/19/24 10/19/24 10/19/24 Range/Units 18:24 18:18 15:45 WBC (4.4-10.8) 10^3/uL RBC (4.36-5.78) 10^6/uL Hgb (13.5-17.5) g/dL Hct (40.0-50.0) % MCV (80-95) fL MCH (27.0-33.0) pg MCHC (32.0-36.0) % RDW (11.8-14.1) % Plt Count (130-400) 10^3/uL MPV (8.0-11.0) fL Immature Gran % % Neutrophils % % Lymphocytes % % Monocytes % % Eosinophils % % Basophils % % Nucleated RBC % (0.0-0.3) % Absolute Neutrophils (1.2-6.7) 10^3/uL Absolute Lymphocytes (1.2-3.4) 10^3/uL Absolute Monocytes (0.1-0.8) 10^3/uL Absolute Eosinophils (0.0-0.7) 10^3/uL Absolute Basophils (0.0-0.2) 10^3/uL PT 29.0 H (9.1-11.1) sec INR 3.1 H (0.9-1.1) Sodium (136-145) mmol/L Potassium (3.5-5.1) mmol/L Chloride (98-107) mmol/L Carbon Dioxide (21.0-32.0) mmol/L Anion Gap (3-11) mmol/L BUN (7-18) mg/dL Creatinine (0.70-1.30) mg/dL Est GFR (CKD-EPI 2020) (mL/min/1.73m2) Glucose (74-106) mg/dL Calcium (8.5-10.1) mg/dL Magnesium (1.8-2.4) mg/dL Total Bilirubin (0.2-1.0) mg/dL AST (15-37) U/L ALT (16-63) U/L Alkaline Phosphatase (46-116) U/L Troponin I 26 (<or=76) ng/L Total Protein (6.4-8.2) g/dL Albumin (3.4-5.0) g/dL Procalcitonin ng/mL Urine Color (Yellow) Urine Clarity (Clear) Urine pH (5-8) Ur Specific [place] (1.005-1.025) Urine Protein (Neg-Trace) mg/dL Urine Ketones (Negative) mg/dL Urine Blood (Negative) Urine Nitrite (Negative) Urine Bilirubin (Negative) Urine Urobilinogen (Up to 0.2) mg/dL Ur Leukocyte Esterase (Negative) Urine RBC (0-2) HPF Urine WBC (0-5) HPF Ur Epithelial Cells (Negative) HPF Urine Crystals (Negative) HPF Urine Bacteria (Negative) HPF Urine Casts (Negative) LPF Urine Mucus (Negative) Ur Culture Indicated? Urine Glucose (Negative) mg/dL MRSA (TEM-PCR) Negative (Negative) 10/19/24 10/19/24 Range/Units 15:15 14:52 WBC 19.27 H (4.4-10.8) 10^3/uL RBC 4.57 (4.36-5.78) 10^6/uL Hgb 13.2 L (13.5-17.5) g/dL Hct 40.7 (40.0-50.0) % MCV 89 (80-95) fL MCH 28.9 (27.0-33.0) pg MCHC 32.4 (32.0-36.0) % RDW 12.6 (11.8-14.1) % Plt Count 201 (130-400) 10^3/uL MPV 9.4 (8.0-11.0) fL Immature Gran % 0.5 % Neutrophils % 92.2 % Lymphocytes % 1.7 % Monocytes % 5.4 % Eosinophils % 0.0 % Basophils % 0.2 % Nucleated RBC % 0.0 (0.0-0.3) % Absolute Neutrophils 17.77 H (1.2-6.7) 10^3/uL Absolute Lymphocytes 0.33 L (1.2-3.4) 10^3/uL Absolute Monocytes 1.04 H (0.1-0.8) 10^3/uL Absolute Eosinophils 0.00 (0.0-0.7) 10^3/uL Absolute Basophils 0.04 (0.0-0.2) 10^3/uL PT (9.1-11.1) sec INR (0.9-1.1) Sodium 142 (136-145) mmol/L Potassium 4.1 (3.5-5.1) mmol/L Chloride 105 (98-107) mmol/L Carbon Dioxide 28.6 (21.0-32.0) mmol/L Anion Gap 8.4 (3-11) mmol/L BUN 12 (7-18) mg/dL Creatinine 1.3 (0.70-1.30) mg/dL Est GFR (CKD-EPI 2020) 54.85 (mL/min/1.73m2) Glucose 108 H (74-106) mg/dL Calcium 9.5 (8.5-10.1) mg/dL Magnesium 1.6 L (1.8-2.4) mg/dL Total Bilirubin 0.4 (0.2-1.0) mg/dL AST 25 (15-37) U/L ALT 16 (16-63) U/L Alkaline Phosphatase 110 (46-116) U/L Troponin I 26 (<or=76) ng/L Total Protein 7.7 (6.4-8.2) g/dL Albumin 3.6 (3.4-5.0) g/dL Procalcitonin 2.90 ng/mL Urine Color Yellow (Yellow) Urine Clarity Clear (Clear) Urine pH 7.0 (5-8) Ur Specific [place] 1.015 (1.005-1.025) Urine Protein 30 H (Neg-Trace) mg/dL Urine Ketones Trace H (Negative) mg/dL Urine Blood Moderate H (Negative) Urine Nitrite Negative (Negative) Urine Bilirubin Negative (Negative) Urine Urobilinogen 1.0 H (Up to 0.2) mg/dL Ur Leukocyte Esterase Small H (Negative) Urine RBC 10-20 H (0-2) HPF Urine WBC 10-20 H (0-5) HPF Ur Epithelial Cells Rare (Negative) HPF Urine Crystals Negative (Negative) HPF Urine Bacteria Rare (Negative) HPF Urine Casts Negative (Negative) LPF Urine Mucus Trace (Negative) Ur Culture Indicated? Yes Urine Glucose Negative (Negative) mg/dL MRSA (TEM-PCR) (Negative) 10/19/24 15:15 Urine Culture - Pending Urine - Reflex from Ua 10/19/24 15:30 Blood Culture - Pending Blood 10/19/24 14:52 Blood Culture - Pending Blood Intake and Output - 24 Hour Total 10/19/24 14:29 thru 10/19/24 17:06 Intake Total 550 Balance 550 Weight 48.534 kg Intake: IV 550 Falls Risk Assessment History of Falls No History 10/19/24 14:46 Contributing Factors Unstable,Incontinence 10/19/24 14:46 Ambulatory Aids Independent 10/19/24 14:46 Tubes/Lines None 10/19/24 14:46 Gait Evaluation W/any additional score 10/19/24 14:46 Cognition No cognitive impairment 10/19/24 14:46 Fall Total Score 26 10/19/24 14:46 Level of Risk Moderate Risk 10/19/24 14:46 Problems (Last Reviewed 10/19/24 @ 18:20 by Ildefonso Hernandez) Underweight (Acute) Fever (Acute) Sepsis (Acute) Right lower lobe pneumonia (Acute) Nicotine dependence (Acute) COPD (chronic obstructive pulmonary disease) (Chronic) Paroxysmal atrial fibrillation (Acute) v v v v v v v v v Sending and/or Receiving Nurses: Please use comment section below to note any information pertinent to the patient hand-off not included above. Information / Comments: Report received from: Report received at 1805 from the ED with nurse Nova Leon. Patient has a pulse is 95, RR 19, BP 146/49, and 02 saturation 98% and is A & 0 x2 (person and place). RN will continue to monitor and stabilize.
[2024-10-19] MEDS: MAGNESIUM SULFATE 2 GM/50 ML BAG IV_INF (20:57)
[2024-10-19] MEDS: DOXYCYCLINE 100 MG in Normal Saline 100 ML IVPB (20:57)
[2024-10-19] MEDS: Normal Saline Flush 10 ML SYR IVP ×2 (20:58→22:48)
[2024-10-19] MEDS: cefTRIAXone 2 GM/50 ML BAG IVPB (22:47)
[2024-10-20 07:11] LABS: Abs Immature Grans 0.13 10^3/uL (0.0-0.06); HCT 34.7 % (40.0-50.0); HGB 11.2 g/dL (13.5-17.5); Immature Grans % 0.7 %; MCH 28.4 pg (27.0-33.0); MCHC 32.3 % (32.0-36.0); MCV 88 fL (80-95); MPV 9.7 fL (8.0-11.0); Platelet Count 196 10^3/uL (130-400); RBC 3.94 10^6/uL (4.36-5.78); RDW 12.6 % (11.8-14.1); RDW-SD 40.5 fL; WBC 19.47 10^3/uL (4.4-10.8)
[2024-10-20 07:21] LABS: Prothrombin Time 27.5 sec (9.1-11.1)
[2024-10-20 07:25] VITALS: BP 144/59; PULSE 65; RESP 17; TEMP 36.8; O2SAT 95
[2024-10-20 07:29] LABS: INR 2.9 (0.9-1.1)
[2024-10-20 07:32] LABS: Anion Gap 7.4 mmol/L (3-11); BUN 13 mg/dL (7-18); CO2 28.6 mmol/L (21.0-32.0); Calcium 8.9 mg/dL (8.5-10.1); Chloride 108 mmol/L (98-107); Estimated GFR 67.02 (mL/min/1.73m2); Glucose 94 mg/dL (74-106); Magnesium 1.9 mg/dL (1.8-2.4); Potassium 3.2 mmol/L (3.5-5.1); Sodium 144 mmol/L (136-145)
[2024-10-20 08:07] LABS: TSH (W/Ref FT4) 0.77 uIU/mL (0.36-3.74)
--- NOTE | 2024-10-20 08:40 | PDOC.CMIN ---
Date of service: 10/20/24 Time of Service: 14:52 Care Management Initial Assmt Initial Assessment Reason for Hospitalization: Pneumonia, sepsis Functional Status/Living Situation Patient Presentation: Chris was lying in bed and awake at the time of CM met with him. He presented to the ED with generalized weakness and reported fever by EMS. Chris was pleasant and communicative, and he engaged appropriately in conversation. The CM requested a PT consult to assess mobility. CM requested PT consult and a palliative consult to review goals of care. COLST and Advanced directive on file, contradicting goals; Reviewed advanced directives with patient and made appropriate changes at his request. AD scanned into chart, sent to [facility] HELEN estrada, and copy given to patient. Crhis resides in [place] with his , Pretty. He reports having six children and many grandchildren. At baseline, he is independent, including driving, and he denies the need for any community-based services at this time. Chris also shared that his son plans to visit him later today. CM will continue to follow. 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 ) Instrumental Activities of Daily Living (ADLs): Independent Medications Medication Management: No Issues/Barriers identified Physical Functioning/Mobility Assistive Device: Has a walker at home that he reports he doesnt use Advance Directives Advance Directives: Do you have an Advance Directive: Y 02/24/23, 13:57 AD On File at [facility]: Y 02/24/23, 13:57 Date Asked 11/27/23 11/27/23, 18:20 AD Date Reviewed 10/19/24 10/19/24, 14:41 COLST On File at [facility] Yes 10/14/20, 13:24 COLST Date Scanned 10/29/20 04/10/21, 13:44 Code Status Resuscitation Status Full Code Portal Pt does not currently have a portal and education provided: Yes Insurance Coverage/Financial Issues Insurance: [employer] Medicare Replacement - [id number] FINANCIAL ASST 100 - [id number] Care Team Visit Care Team Role Provider Type Buster Breaux MD Primary Care Provider [facility] STAFF PHYSICIAN Hayden Felder MD Emergency Provider [facility] STAFF PHYSICIAN Ildefonso Raser Admit Provider [facility] STAFF PHYSICIAN Attending Provider Discharge Potential Discharge Needs: Consult Consult Services Needed: Palliative, PT Evaluation and PCP F/U Appt Anticipated Barriers to Discharge: None Identified Patient/Family Education Needs: Review discharge instructions, discuss Ask Me Three Transportation: Private vehicle Plan: Anticipate Chris will be discharged home once medically ready, possibly with new services; PT consult requested. It is recommended that Chris follow up with his community providers and discharge plan of care. Chris transport recommendation is pending PT. CM will continue to follow. Social Determinants of Health Screening Will the Patient Participate in the Screening?: Declined to provide PFSH All Active Problems (Updated 10/19/24 @ 18:24 by Ildefonso Hernandez) Underweight (Acute) Fever (Acute) Sepsis (Acute) Right lower lobe pneumonia (Acute) Nicotine dependence, cigarettes, uncomplicated (Acute) Elevated liver enzymes (Acute) Nicotine dependence (Acute) 06/2021- 4-6 cig/day, 50 plus yr pk yr Benign prostate hyperplasia (Chronic) Status post TURP, associated elevated PSA, followed by urology at [facility] Anemia (Chronic) Multiple thyroid nodules (Acute) 06/2021-thyroid ultrasound at [facility]-several small stable nodules by ultrasound, no interval change, no further follow-up needed COPD (chronic obstructive pulmonary disease) (Chronic) Paroxysmal atrial fibrillation (Acute) On Coumadin goal INR 2-3 POLST (Physician Orders for Life-Sustaining Treatment) (Acute) Chronic anticoagulation (Acute) Benign non-nodular prostatic hyperplasia with lower urinary tract symptoms (Acute 12/10/14) SVT (supraventricular tachycardia) (Acute 02/27/15) Holter : multiple SVT/long duration/intol. 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 Paternal Grandfather No problems noted. Son Prostate cancer Stage IV Father Dementia Sister No problems noted. Brother No problems noted. Social History (Updated 10/19/24 @ 20:19 by Ildefonso Hernandez) Smoking/Tobacco Use Status: Current-Occasional Tobacco Type: cigarettes Tobacco: How many years used: 67 Quit status: not considering quitting Second Hand Exposure: Yes Smoking risk assessment performed?: Yes Alcohol Intake: former Year quit: 1983 Counseling given: No Drug use: Never Substance use type: does not use Counseling given: No Adopted: No Caregiver/Support person: No Household members: spouse Housing: house Number of Children: 6 number of grandchildren: 6 Communication Needs: Hard of Hearing Education Level: high school Do you need help understanding health information?: Rarely current occupation: Retired Pets and animals: No Sexually active: No Do you think of yourself as: straight/heterosexual Current gender identity: male What is your relationship status?: How often do you talk on the phone with friends or family?: once per week How often do you get together with friends or relatives?: decline to answer How often do you attend zoroastrian or religion services?: decline to answer Do you belong to any clubs or organized social groups?: no Panel score (0-1 are the most socially isolated patients): 1 Evy/Church: Non restoration Agree to transfusion: No Seatbelt use: always Helmet use: No Drive intox or ride w/intox snaker tractor 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 Additional Social history: Lives in [facility] with his Readmission Within the Past 30 Days Yes or No: No
[2024-10-20] MEDS: Bisoprolol 5 MG TAB PO (09:45)
[2024-10-20] MEDS: dilTIAZem CD 180 MG CAPCR 360 MG PO (09:45)
[2024-10-20] MEDS: DOXYCYCLINE 100 MG in Normal Saline 100 ML IVPB ×2 (09:45→20:26)
[2024-10-20] MEDS: Mirabegron 50 MG TABCR PO (09:45)
[2024-10-20] MEDS: Normal Saline Flush 10 ML SYR IVP ×2 (09:46→20:26)
[2024-10-20 11:20] VITALS: BP 114/49; PULSE 61; RESP 17; TEMP 36.6; O2SAT 96
--- NOTE | 2024-10-20 12:08 | PHA.REVIEW2 ---
Pharmacy Admission Review Admission Clinical Review Admission Pharmacy Review: Underweight (Acute) Fever (Acute) Sepsis (Acute) Right lower lobe pneumonia (Acute) Nicotine dependence (Acute) Paroxysmal atrial fibrillation (Acute) metoprolol Adverse Reaction (Mild, Verified 10/19/24 17:19) DIARRHEA Resuscitation Status Full Code Height 5 ft 10 in Weight 58.315 kg Pharmacy Admission Review Renal Dosing Renal Dosing: BUN 13 mg/dL (7-18) 10/20/24 06:24 Creatinine 1.1 mg/dL (0.70-1.30) 10/20/24 06:24 Medications needing adjustments: Reviewed (CrCl 42.71 mL/min) List of meds needing interventions: Current medications are okay Anticoagulation Anticoagulation: Hgb 11.2 g/dL (13.5-17.5) L D 10/20/24 06:24 Hct 34.7 % (40.0-50.0) L 10/20/24 06:24 Plt Count 196 10^3/uL (130-400) 10/20/24 06:24 INR 2.9 (0.9-1.1) H 10/20/24 06:24 Creatinine 1.1 mg/dL (0.70-1.30) 10/20/24 06:24 DVT Prophylaxis: Reviewed (INR decreased from 3.1, Hgb decreased from 13.2) Medications: Warfarin (order pending - per provider leave as pending for now) Relevant Labs Relevant Labs: Sodium 144 mmol/L (136-145) 10/20/24 06:24 Potassium 3.2 mmol/L (3.5-5.1) L 10/20/24 06:24 Chloride 108 mmol/L (98-107) H 10/20/24 06:24 Magnesium 1.9 mg/dL (1.8-2.4) 10/20/24 06:24 Electrolytes, C-Reactive P, ESR: Reviewed Cardiac Review Cardiac Review: Troponin I 26 ng/L (<or=76) 10/19/24 15:45 Blood Pressure 114/49 1120 Blood Pressure 144/59 0725 BP, HR, EF%: Reviewed (HR WNL) List meds needing interventions: Has orders for bisoprolol 5mg daily and diltiazem CD 360mg daily QTc Review QTc: Reviewed (450 from 10/19/24) IV to PO Switch IV Medications: Reviewed (ceftriaxone and doxycycline) Home Meds Home Med List reviewed: Reviewed Current Meds Current Medication Order Review: Reviewed Pharmacy Antibiotic Review Relevant Labs: Relevant Labs 10/19/24 14:52 Procalcitonin 2.90 WBC 19.47 10^3/uL (4.4-10.8) H 10/20/24 06:24 Procalcitonin 2.90 ng/mL 10/19/24 14:52 Temperature 36.6 C Temperature 36.8 C Microbiology 10/19/24 15:15 Urine Culture - Preliminary Urine - Reflex from Ua Gram positive ryan, mixed Pharmacy Antibiotic Activity: C/S review and Reviewed, no change Comments: Patient is on ceftriaxone and doxycycline, day 1, for CAP/sepsis/UTI. WBC slightly increased from 19.27 and blood cultures pending.
[2024-10-20 15:06] VITALS: BP 115/45; PULSE 63; RESP 15; TEMP 37.1; O2SAT 94
--- NOTE | 2024-10-20 16:38 | PGE_ITS ---
Date of Service Date of service: 10/20/24 Time of Service: 16:38 Assessment and Plan Assessment and plan (1) Right lower lobe pneumonia: Status: Acute Assessment and plan: Community acquired. High risk with age, COPD, sepsis, admission indicated. No known history/clear risk factors for pseudomonas/MRSA. Does not meet severe criteria. Get MRSA screen, but if negative treat with ceftriaxone and doxy, will not continue vanco. Send legionella Ag with recent cases in community. He doesn't have a lot of symtpoms, UTI is possible other source of sepsis. Consider CT chest to clarify infiltrate, especially with smoking/underweight with malignancy risk. Full Code. Warfarin for DVT prophylaxis. 10/20/24 Pt on rocephin and doxy. Will d/c on doxy tomorrow. WBC is still quite elevated. Did d/w the pt the advantages/disadvantages of chest ct and he is not interested in repeat ct chest at this point. (2) Sepsis: Status: Acute Assessment and plan: Met criteria with fever, WBC, RR and pneumonia as above Appropriately fluid recuscutated. Blood cx sent. (3) Urinary tract infection: Status: Inactive Assessment and plan: possible alternative cause of sepsis. He does have frequency and anterior flank pain could be from right kidney rather than RLL infiltrate. Ceftriaxone will cover both. Culture pending. (4) COPD (chronic obstructive pulmonary disease): Status: Chronic Assessment and plan: Not clearly exacerbated. COntinue LAMA, add oral steroid if developes wheezing/hypoxia (5) Paroxysmal atrial fibrillation: Status: Acute Assessment and plan: on warfarin and bisoprolol/diltiazem. Need INR today, follow on antibiotics. Was 3.1 three days ago. 10/20/24 INR at 2.9, still just a bit elevated. Recheck in am. Might need to lower dose considering abx exposure. (6) Underweight: Status: Acute Assessment and plan: 48lb weight was spurious, but at 58kg he still has BMI around 18.5m2/kg. This raises risk of lung disease. We discussed nutrition. Get nutrition help when available. 10/20/24 In reviewing chart data from the last few years, the pt's weight has been fairly stable ~57kg to 62kg (7) Nicotine dependence: Status: Acute Assessment and plan: nrt prn (8) Hematuria: Assessment and plan: Considering the pt's long history of tobacco use and weight loss, it is imperative that the pt follow up with repeat UA to ensure resolution of hematuria. If the hematuria does not resolve, recommend evaluation with urology Subjective Subjective Interval history since last seen: pt wants to go home in am Exam Narrative Exam Narrative: GEN: Alert and oriented x 4, mildly hard of hearing. Thin to gaunt. In bed, pleasant and cooperative, gives linear history. No acute distress at rest. HEENT: Head atraumatic. Conjunctiva clear, no icterus. PEERL, EOMI. no rhinorrhea. MMM, OP benign. Neck is supple with no masses or lymphadenopathy, trachea midline LUNGS: Diffusely diminished breath sounds. I don't appreciate wheeze or rales. CV: RRR with no murmurs, gallops, or rubs. ABD: active bowel sounds, soft, nontender and nondistended. No masses. EXT: no cyanosis, clubbing, or edema, warm MSK: No joint redness or swelling. chest wall not tender NEURO: CN 2-12 grossly intact. Normal movement of 4 extremities. Normal speech and coordination. No tremor SKIN: No rashes or open wounds. PSYCH: normal mood and affect, normal thought process Objective Last Vital Signs Temp 37.1 C 10/20/24 15:06 Pulse 63 10/20/24 15:06 Resp 15 10/20/24 15:06 BP 115/45 L 10/20/24 15:06 Pulse Ox 94 10/20/24 15:06 Laboratory Results - last 24 hr 10/19/24 10/19/24 10/20/24 18:18 18:24 06:24 WBC 19.47 H RBC 3.94 L Hgb 11.2 L D Hct 34.7 L MCV 88 MCH 28.4 MCHC 32.3 RDW 12.6 Plt Count 196 MPV 9.7 Immature Gran % 0.7 Neutrophils % 88.5 Lymphocytes % 5.1 Monocytes % 5.4 Eosinophils % 0.1 Basophils % 0.2 Nucleated RBC % 0.0 Absolute Neutrophils 17.23 H Absolute Lymphocytes 0.99 L Absolute Monocytes 1.05 H Absolute Eosinophils 0.02 Absolute Basophils 0.04 PT 29.0 H 27.5 H INR 3.1 H 2.9 H Sodium 144 Potassium 3.2 L Chloride 108 H Carbon Dioxide 28.6 Anion Gap 7.4 BUN 13 Creatinine 1.1 Est GFR (CKD-EPI 2020) 67.02 Glucose 94 Calcium 8.9 Magnesium 1.9 TSH 0.77 MRSA (TEM-PCR) Negative Time Spent with Patient Time Spent with Patient: 25-34 minutes Time was spent: preparing to see the patient(eg.review tests), obtaining and/or reviewing separately otained hiistory, ordering medications,tests, procedures, referring, communicating with other health urgent care technician, indepentently interpreting results, counseling the patient and care coordination
[2024-10-20 17:33] LABS: Legionella Ag Detection Urine Negative (Negative)
[2024-10-20 20:24] VITALS: BP 117/52; PULSE 67; RESP 16; TEMP 37.1; O2SAT 94
[2024-10-20] MEDS: Potassium Chloride 20 MEQ TABCR PO (21:51)
[2024-10-20] MEDS: cefTRIAXone 2 GM/50 ML BAG IVPB (21:51)
[2024-10-21 07:00] LABS: Anion Gap 8.8 mmol/L (3-11); BUN 13 mg/dL (7-18); CO2 27.2 mmol/L (21.0-32.0); Calcium 8.8 mg/dL (8.5-10.1); Chloride 108 mmol/L (98-107); Estimated GFR 60.38 (mL/min/1.73m2); Glucose 104 mg/dL (74-106); Potassium 3.4 mmol/L (3.5-5.1); Sodium 144 mmol/L (136-145)
[2024-10-21 07:04] LABS: Abs Immature Grans 0.08 10^3/uL (0.0-0.06); HCT 33.1 % (40.0-50.0); HGB 10.9 g/dL (13.5-17.5); Immature Grans % 0.6 %; MCH 29.1 pg (27.0-33.0); MCHC 32.9 % (32.0-36.0); MCV 89 fL (80-95); MPV 9.9 fL (8.0-11.0); Platelet Count 184 10^3/uL (130-400); RBC 3.74 10^6/uL (4.36-5.78); RDW 12.9 % (11.8-14.1); RDW-SD 41.8 fL; WBC 12.90 10^3/uL (4.4-10.8)
[2024-10-21 07:07] LABS: INR 2.1 (0.9-1.1); Prothrombin Time 19.8 sec (9.1-11.1)
[2024-10-21 08:11] VITALS: BP 120/52; PULSE 74; RESP 17; TEMP 36.6; O2SAT 94
[2024-10-21] MEDS: DOXYCYCLINE 100 MG in Normal Saline 100 ML IVPB (08:39)
[2024-10-21] MEDS: dilTIAZem CD 180 MG CAPCR 360 MG PO (08:40)
[2024-10-21] MEDS: Mirabegron 50 MG TABCR PO (08:40)
[2024-10-21] MEDS: Bisoprolol 5 MG TAB PO (08:40)
[2024-10-21] MEDS: Normal Saline Flush 10 ML SYR IVP (08:40)
[2024-10-21 11:26] VITALS: BP 115/56; PULSE 62; RESP 17; TEMP 36.6; O2SAT 95
--- NOTE | 2024-10-21 11:37 | DSE_ITS ---
Date of service: 10/21/24 Time of Service: 11:37 DS: Diagnosis Discharge Diagnosis (1) Right lower lobe pneumonia: Status: Acute (2) Sepsis: Status: Acute (3) Urinary tract infection: Status: Inactive (4) COPD (chronic obstructive pulmonary disease): Status: Chronic (5) Paroxysmal atrial fibrillation: Status: Acute (6) Underweight: Status: Acute (7) Nicotine dependence: Status: Acute (8) Hematuria: Discharge Plan Disposition Patient Disposition: Home Condition: Stable Discharge Details Reason For Visit: Pneumonia,Sepsis Admit Date/Time: 10/19/24 18:00 Admit Provider: Ildefonso Hernandez Attending Provider: Ildefonso Hernandze Primary Care Provider: Buster Breaux Hospital Course Hospital Course: This is a 84-year-old gentleman who was admitted on 19 October for right lower lobe pneumonia. Patient does have a history of COPD and tobacco use/abuse. On admission there was a diagnosis of sepsis which is now resolved. While he was in the hospital I did recommend a CT scan per radiology guidelines and his last CT but he refused. Patient is anxious Home. I will send home with doxycycline 100 mg p.o. twice daily for 5 more days. Of note the patient does take Coumadin for A-fib and stroke prevention. INR on discharge was 2.1. Patient will need follow-up labs in 1 week as he is on antibiotics make sure his INR does not get too high. In regards to diagnostic data white count on admission was 19.27 and is currently 12.9. Patient did have mild anemia that she worked up in the outpatient setting. His hemoglobin was 10.9 hematocrit 33.1 on discharge. It was 13.2 on admission for his hemoglobin value. INR on admission was 3.1 and is currently 2.1 which is goal. Patient did have mild hypokalemia so we will replace his potassium as well. At the time of discharge his potassium is 3.4. The patient is noted to have hematuria and will need to have a repeat urinalysis in 4 to 6 weeks to ensure resolution. This is particular important as he does have a history of tobacco use. Chest x-ray done on admission showed right basilar opacity consistent with pneumonia. Microbiology his blood cultures negative at 24 hours urine cultures are positive for gram-positive ryan but less than 50,000 CFU's. Most likely this is a contamination. Patient will be discharged in good health. Recommendations for Follow Up Recommended tests to be ordered by follow up provider: cbc in 5-7 days CMP in 5-7 days INR in 5 days UA in 4-6 weeks Home Meds and New Rx's Prescriptions: New doxycycline hyclate 100 mg Recon Soln 100 mg IVPB Q12H 5 Days Qty: 10 0RF potassium chloride 20 mEq packet 20 meq PO DAILY Qty: 21 0RF Continued bisoprolol fumarate 5 mg tablet 5 mg PO DAILY Qty: 90 4RF warfarin 5 mg tablet 5 mg PO DAILY Qty: 90 6RF Protocol: Dose Management Condition: Monday Dose/Route: 2.5 mg Instruction: 0.5 x 5 mg tablets Condition: Monday Dose/Route: 2.5 mg Instruction: 0.5 x 5 mg tablets Condition: Monday Dose/Route: 2.5 mg Instruction: 0.5 x 5 mg tablets Condition: Monday Dose/Route: 2.5 mg Instruction: 0.5 x 5 mg tablets Condition: Dose/Route: 2.5 mg Instruction: 0.5 x 5 mg tablets Condition: Monday Dose/Route: 5 mg Instruction: 1 x 5 mg tablet Condition: Monday Dose/Route: 2.5 mg Instruction: 0.5 x 5 mg tablets Protocol Text: Adjustment Start Date: Monday10/16/24 INR Value: 3.1 INR Date: 10/16/24 Recheck Date: 10/23/24 Rx Instructions: 5 mg sun, mon , mon, mon, 2.5 mg on the rest of days umeclidinium-vilanterol [Anoro Ellipta] 62.5-25 mcg/actuation blister with device 1 inh inhalation DAILY Qty: 30 11RF diltiazem HCl [Tiadylt ER] 360 mg capsule,extended release 24hr 360 mg PO DAILY Qty: 90 3RF mirabegron [Myrbetriq] 50 mg tablet extended release 24 hr 50 mg PO DAILY Patient Comments: TAKE 1 TABLET BY MOUTH DAILY Discharge Instructions Referrals: Buster Breaux MD [Primary Care Provider, Medicine] Referral Note: follow up in 5-7days Activity:: Activity as Tolerated Equipment/Supplies:: No Equipment Needed Diet:: As Tolerated Discharge Orders Discharge Orders: Discharge Order (Routine); Ordered 10/21/24 Ordered By: Rafi Tomas DS: Summary Time Spent with Patient providing and/or coordinating discharge services: Greater than 30 minutes Status at Discharge Functional status at discharge: independent ambulation Overall status at discharge: patient is progressing back to baseline Mental Status: mental status grossly normal Speech and Movement: speech and movement normal Mood: congruent mood Affect: normal affect Exam Narrative Exam Narrative: GEN: Alert and oriented x 4, mildly hard of hearing. Thin to gaunt. In bed, pleasant and cooperative, gives linear history. No acute distress at rest. HEENT: Head atraumatic. Conjunctiva clear, no icterus. PEERL, EOMI. no rhinorrhea. MMM, OP benign. Neck is supple with no masses or lymphadenopathy, trachea midline LUNGS: Diffusely diminished breath sounds. I don't appreciate wheeze or rales. CV: RRR with no murmurs, gallops, or rubs. ABD: active bowel sounds, soft, nontender and nondistended. No masses. EXT: no cyanosis, clubbing, or edema, warm MSK: No joint redness or swelling. chest wall not tender NEURO: CN 2-12 grossly intact. Normal movement of 4 extremities. Normal speech and coordination. No tremor SKIN: No rashes or open wounds. PSYCH: normal mood and affect, normal thought process Psych Mental Status: mental status grossly normal Speech and Movement: speech and movement normal Mood: congruent mood Affect: normal affect DS: Data Vitals/I&O Vitals and I&O: Vital Signs Temperature 36.6 C 10/21/24 11:26 Temperature Source Temporal Artery Scan 10/21/24 11:26 Pulse 62 10/21/24 11:26 Pulse Rhythm Regular 10/19/24 22:56 Pulse 95 H 10/19/24 17:10 Respiratory Rate 17 10/21/24 11:26 Respiratory Effort Normal, Non-Labored 10/19/24 22:56 Respiratory Depth Normal 10/19/24 22:56 Respiratory Pattern Normal 10/19/24 22:56 Blood Pressure 115/56 L 10/21/24 11:26 Blood Pressure Mean 75 10/21/24 11:26 Blood Pressure Position Supine 10/19/24 14:36 Pulse Oximetry 95 10/21/24 11:26 Oxygen Delivery Method Room Air 10/21/24 11:26 Oxygen Flow Rate 0 10/21/24 11:26 Pain Level 0 10/21/24 11:26 Comment PT sleeping 10/21/24 04:05 Intake & Output 10/20/24 10/20/24 10/21/24 11:59 23:59 11:59 Intake Total 100 / 200 100 / 200 100 / 100 Output Total 400 / 400 Balance -300 / -200 100 / -200 100 / 100 Weight 54.1 kg Intake: IV 100 / 200 100 / 200 100 / 100 Output: Urine 400 / 400 Other: Urine Color Yellow Yellow Urine Appearance Clear Clear Urine Odor None Strong Data Completed and Pending Labs on day of discharge: Labs from last 24 hours 10/21/24 06:20 WBC 12.90 H RBC 3.74 L Hgb 10.9 L Hct 33.1 L MCV 89 MCH 29.1 MCHC 32.9 RDW 12.9 Plt Count 184 MPV 9.9 Immature Gran % 0.6 Neutrophils % 85.8 Lymphocytes % 6.7 Monocytes % 6.6 Eosinophils % 0.1 Basophils % 0.2 Nucleated RBC % 0.0 Absolute Neutrophils 11.07 H Absolute Lymphocytes 0.86 L Absolute Monocytes 0.85 H Absolute Eosinophils 0.01 Absolute Basophils 0.03 PT 19.8 H INR 2.1 H Sodium 144 Potassium 3.4 L Chloride 108 H Carbon Dioxide 27.2 Anion Gap 8.8 BUN 13 Creatinine 1.2 Est GFR (CKD-EPI 2020) 60.38 Glucose 104 Calcium 8.8 Preliminary micro results at discharge 10/19/24 15:30 Blood Blood Culture - Preliminary NO GROWTH 24 HOURS 10/19/24 14:52 Blood Blood Culture - Preliminary NO GROWTH 24 HOURS PFSH All Active Problems (Updated 10/19/24 @ 18:24 by Ildefonso Hernandez) Underweight (Acute) Fever (Acute) Sepsis (Acute) Right lower lobe pneumonia (Acute) Nicotine dependence, cigarettes, uncomplicated (Acute) Elevated liver enzymes (Acute) Nicotine dependence (Acute) 06/2021- 4-6 cig/day, 52 plus yr pk yr Benign prostate hyperplasia (Chronic) Status post TURP, associated elevated PSA, followed by urology at [facility] Anemia (Chronic) Multiple thyroid nodules (Acute) 06/2021-thyroid ultrasound at [facility]-several small stable nodules by ultrasound, no interval change, no further follow-up needed COPD (chronic obstructive pulmonary disease) (Chronic) Paroxysmal atrial fibrillation (Acute) On Coumadin goal INR 2-3 POLST (Physician Orders for Life-Sustaining Treatment) (Acute) Chronic anticoagulation (Acute) Benign non-nodular prostatic hyperplasia with lower urinary tract symptoms (Acute 12/10/14) SVT (supraventricular tachycardia) (Acute 02/27/15) Holter : multiple SVT/long duration/intol. 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 Paternal Grandfather No problems noted. Son Prostate cancer Stage IV Father Dementia Sister No problems noted. Brother No problems noted. Social History (Updated 10/19/24 @ 20:19 by Ildefonso Hernandez) Smoking/Tobacco Use Status: Current-Occasional Tobacco Type: cigarettes Tobacco: How many years used: 67 Quit status: not considering quitting Second Hand Exposure: Yes Smoking risk assessment performed?: Yes Alcohol Intake: former Year quit: 1983 Counseling given: No Drug use: Never Substance use type: does not use Counseling given: No Adopted: No Caregiver/Support person: No Household members: spouse Housing: house Number of Children: 6 number of grandchildren: 6 Communication Needs: Hard of Hearing Education Level: high school Do you need help understanding health information?: Rarely current occupation: Retired Pets and animals: No Sexually active: No Do you think of yourself as: straight/heterosexual Current gender identity: male What is your relationship status?: How often do you talk on the phone with friends or family?: once per week How often do you get together with friends or relatives?: decline to answer How often do you attend cheondoism or yarsanism services?: decline to answer Do you belong to any clubs or organized social groups?: no Panel score (0-1 are the most socially isolated patients): 1 Evy/Hinduism: Non quaker Agree to transfusion: No Seatbelt use: always Helmet use: No Drive intox or ride w/intox pick up and delivery 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 Additional Social history: Lives in [facility] with his Time Spent with Patient Time Spent with Patient: 45-69 minutes Time was spent: preparing to see the patient(eg.review tests), obtaining and/or reviewing separately otained hiistory, ordering medications,tests, procedures, referring, communicating with other health animal care provider, indepentently interpreting results, counseling the patient and care coordination
== END 2024-10-21 13:00 | disposition home or self-care (01) | DRG 871 ==
LOC: ER 17:17 → MS 19:13
PROVIDERS: Family Medicine; Admitting Provider Family Medicine; Emergency Provider General Practice; PCP Family Medicine; Responsible Provider Hospitalist; Visit Provider Family Medicine
DX: A41.9 Sepsis, unspecified organism (principal); J18.9 Pneumonia, unspecified organism; N39.0 Urinary tract infection, site not specified; Z68.1 Body mass index [BMI] 19.9 or less, adult; I47.10 Supraventricular tachycardia, unspecified; J44.0 Chronic obstructive pulmonary disease with (acute) lower respiratory infection; I48.0 Paroxysmal atrial fibrillation; R63.6 Underweight; F17.210 Nicotine dependence, cigarettes, uncomplicated; R31.9 Hematuria, unspecified; Z79.01 Long term (current) use of anticoagulants; R53.83 Other fatigue; R74.8 Abnormal levels of other serum enzymes; D64.9 Anemia, unspecified; E04.2 Nontoxic multinodular goiter
CPT/HCPCS: 00123; 36415; 80048; 80053; 84145; 87040; 87449; 87641; 93005; 96361; 96365; 96366; 96368; 96375; 99285; 71045; 81003; 81015; 83735; 84443; 84484; 85025; 85610; 87086; 93010; 99222; 99231; 99239; J0131; J0692; J0696; J3373; J3475

== ENCOUNTER 2024-10-28 10:45 | Outpatient (CLI) | payer MEDICARE, SELFPAY ==
[2024-10-28 14:10] LABS: Abs Immature Grans 0.09 10^3/uL (0.0-0.06); HCT 37.1 % (40.0-50.0); HGB 12.0 g/dL (13.5-17.5); Immature Grans % 0.9 %; MCH 30.0 pg (27.0-33.0); MCHC 32.3 % (32.0-36.0); MCV 93 fL (80-95); MPV 8.9 fL (8.0-11.0); Platelet Count 463 10^3/uL (130-400); RBC 4.00 10^6/uL (4.36-5.78); RDW 13.0 % (11.8-14.1); RDW-SD 44.2 fL; WBC 10.55 10^3/uL (4.4-10.8)
[2024-10-28 14:37] LABS: ALT 16 U/L (16-63); AST 16 U/L (15-37); Albumin 3.0 g/dL (3.4-5.0); Alkaline Phosphatase 89 U/L (46-116); Anion Gap 6.1 mmol/L (3-11); BUN 13 mg/dL (7-18); Bilirubin, Total 0.3 mg/dL (0.2-1.0); CO2 31.9 mmol/L (21.0-32.0); Calcium 10.0 mg/dL (8.5-10.1); Chloride 105 mmol/L (98-107); Estimated GFR 60.38 (mL/min/1.73m2); Glucose 86 mg/dL (74-106); Potassium 3.7 mmol/L (3.5-5.1); Sodium 143 mmol/L (136-145); Total Protein 7.4 g/dL (6.4-8.2)
[2024-10-28 15:08] LABS: INR 4.0 (0.9-1.1); Prothrombin Time 36.3 sec (9.1-11.1)
[2024-10-28 17:18] LABS: Glucose Negative (Negative)
[2024-10-28 17:28] LABS: C & S Indicated? Yes; WBC 20-50 HPF (0-5)
== END 2024-10-28 10:46 | disposition home or self-care (01) ==
LOC: LOS 10:45
PROVIDERS: PCP Family Medicine; Visit Provider Family Medicine
DX: E87.6 Hypokalemia (principal); D64.9 Anemia, unspecified; R31.9 Hematuria, unspecified; I48.0 Paroxysmal atrial fibrillation
CPT/HCPCS: 36415; 80053; 81003; 81015; 85025; 85610; 87086

== ENCOUNTER 2024-10-28 18:31 | Outpatient (REF) | payer MEDICARE, SELFPAY ==
--- NOTE | 2024-10-28 10:50 | PAPNONF_PTH ---
PATIENT: Chris Phan LOC: [facility] U#:[id number] AGE/SX: 84/M ROOM: RE10/28/[address]: Yahaira Vann : 1940 BED: DIS: 10/28/2024 SPEC #: [id number] RECD: 10/28/24 18:33 STATUS: MADELIN PHAM #: [id number] WINSTON: 10/28/24 10:[address]: Yahaira Vann DEPT: FOR[facility]LY [facility], [facility] Cytology RECD BY: Marilu Lopez ENTERED: 10/28/24 18:33 SP TYPE: KERA AIKEN DR: Buster Breaux MD Tissues: 1 - BODY FLUID CYTO(SPUTUM/URINE)[facility] Procedures: BODY FLUID CYTO(URINE/SPUTUM) Comments: [id number] (TV = 10 ml, SENT FRESH) (REFRIGERATED)
== END 2024-10-28 18:32 | disposition home or self-care (01) ==
LOC: LBN 18:31
PROVIDERS: PCP Family Medicine; Visit Provider Family Medicine
DX: N49.8 Inflammatory disorders of other specified male genital organs (principal)
CPT/HCPCS: 88104

== ENCOUNTER 2024-11-05 01:34 | Outpatient (CLI) | payer MEDICARE, SELFPAY ==
[2024-11-05 16:56] LABS: INR 2.5 (0.9-1.1); Prothrombin Time 23.3 sec (9.1-11.1)
== END 2024-11-05 01:35 | disposition home or self-care (01) ==
LOC: LOS 11-06 01:34
PROVIDERS: PCP Family Medicine; Visit Provider Family Medicine
DX: I48.0 Paroxysmal atrial fibrillation (principal)
CPT/HCPCS: 36415; 85610

== ENCOUNTER 2024-11-13 04:06 | Outpatient (CLI) | payer MEDICARE, SELFPAY ==
[2024-11-13 14:53] LABS: INR 2.3 (0.9-1.1); Prothrombin Time 21.6 sec (9.1-11.1)
== END 2024-11-13 04:07 | disposition home or self-care (01) ==
LOC: LOS 04:06
PROVIDERS: PCP Family Medicine; Visit Provider Family Medicine
DX: I48.0 Paroxysmal atrial fibrillation (principal)
CPT/HCPCS: 36415; 85610

== ENCOUNTER 2024-11-20 04:07 | Outpatient (CLI) | payer MEDICARE, SELFPAY ==
[2024-11-20 14:34] LABS: INR 1.3 (0.9-1.1); Prothrombin Time 13.2 sec (9.1-11.1)
== END 2024-11-20 04:08 | disposition home or self-care (01) ==
LOC: LOS 04:08
PROVIDERS: PCP Family Medicine; Visit Provider Family Medicine
DX: I48.0 Paroxysmal atrial fibrillation (principal)
CPT/HCPCS: 36415; 85610

== ENCOUNTER 2024-11-28 00:55 | Outpatient (CLI) | payer MEDICARE, SELFPAY ==
[2024-11-28 14:30] LABS: INR 1.8 (0.9-1.1); Prothrombin Time 17.2 sec (9.1-11.1)
== END 2024-11-28 00:56 | disposition home or self-care (01) ==
LOC: LOS 00:56
PROVIDERS: PCP Family Medicine; Visit Provider Family Medicine
DX: I48.0 Paroxysmal atrial fibrillation (principal)
CPT/HCPCS: 36415; 85610

== ENCOUNTER 2024-12-12 00:21 | Outpatient (CLI) | payer MEDICARE, SELFPAY ==
[2024-12-12 14:26] LABS: INR 1.9 (0.9-1.1); Prothrombin Time 18.3 sec (9.1-11.1)
== END 2024-12-12 00:22 | disposition home or self-care (01) ==
LOC: LOS 00:22
PROVIDERS: PCP Family Medicine; Visit Provider Family Medicine
DX: I48.0 Paroxysmal atrial fibrillation (principal)
CPT/HCPCS: 36415; 85610

== ENCOUNTER 2024-12-18 01:58 | Outpatient (CLI) | payer MEDICARE, SELFPAY ==
[2024-12-18 14:08] LABS: INR 1.8 (0.9-1.1); Prothrombin Time 17.1 sec (9.1-11.1)
== END 2024-12-18 01:59 | disposition home or self-care (01) ==
LOC: LOS 01:58
PROVIDERS: PCP Family Medicine; Visit Provider Nurse Practitioner Family
DX: I48.0 Paroxysmal atrial fibrillation (principal)
CPT/HCPCS: 36415; 85610

== ENCOUNTER 2025-01-22 01:33 | Outpatient (CLI) | payer MEDICARE, SELFPAY ==
[2025-01-22 15:42] LABS: INR 2.0 (0.9-1.1); Prothrombin Time 19.5 sec (9.1-11.1)
== END 2025-01-22 01:34 | disposition home or self-care (01) ==
LOC: LOS 01:33
PROVIDERS: PCP Family Medicine; Visit Provider Family Medicine
DX: I48.0 Paroxysmal atrial fibrillation (principal)
CPT/HCPCS: 36415; 85610

== ENCOUNTER 2025-02-11 07:15 | Outpatient (CLI) | payer MEDICARE, SELFPAY ==
[2025-02-11 14:10] LABS: INR 2.1 (0.9-1.1); Prothrombin Time 19.9 sec (9.1-11.1)
== END 2025-02-11 07:16 | disposition home or self-care (01) ==
LOC: LOS 07:15
PROVIDERS: PCP Family Medicine; Visit Provider Family Medicine
DX: I48.0 Paroxysmal atrial fibrillation (principal)
CPT/HCPCS: 36415; 85610